=== PATIENT | female | born 1935 | race Caucasian/White ===

== ENCOUNTER → 2016-11-01 | Day surgery (SDC) | payer MEDICARE, BC ==
[~2016-11-01] MED LIST: ALPRAZolam 0.25 MG TAB ONE; BACITRACIN OINT 1 EACH PACKET TOPICAL ONE; LIDOCAINE 1% INJ 10MG/ML (20 ML MDV) ONE; LIDOCAINE 1%-EPI 1:100,000 20 ML VIAL ONE; SODIUM BICARB 4% 5 ML VIAL (0.48 MEQ/ML) ONE
--- NOTE | 2016-11-01 13:32 | USB ---
EXAMINATION TYPE: US biopsy breast VAD LT, MG postbiopsy diagnostic mammo LT wo CAD DATE OF EXAM: 11/01/2016 1:09 PM CLINICAL HISTORY: 81-year-old female left N63 Breast Mass. Referred for biopsy from [facility]. TECHNIQUE: Ultrasound guided core biopsy of the 4:00 left breast. COMPARISON: Correlation outside mammogram 10/01/2016 FINDINGS: The procedure of ultrasound guided core biopsy was explained to the patient. Benefits, alternatives, and risks were discussed. An informed consent was then obtained. The suspicious irregular and vascular 4:00 left breast lesion was identified. The left axilla was also scanned and shows no abnormal lymphadenopathy. The patient was placed in supine positioning for imaging and for the procedure. The overlying skin was prepped and draped in usual sterile fashion. Lidocaine buffered with bicarbonate was used as anesthetic into the skin followed by lidocaine and epinephrine into the subcutaneous tissue up to area of concern in the 4:00 left breast. Under ultrasound guidance, a 13-gauge vacuum-assisted Mammotome Elite biopsy gun device was used to obtain 7 core samples. Following this, a ribbon clip was left in lesion. The patient tolerated the procedure well without any immediate complication. The patient was kept in the radiology department for short stay after the procedure and then discharged home in stable condition. IMPRESSION: Successful, uncomplicated ultrasound guided core biopsy of suspicious lesion in the 4:00 left breast; full pathology results to follow. Pathology Results: Malignant BREAST, LEFT, ULTRASOUND GUIDED BIOPSY: INVASIVE DUCTAL CARCINOMA. Recommendation Surgical consult of the left breast. CARROL
== END ==
LOC: RADUSWWP 10:56
PROVIDERS: ATTEND Surgery
DX: C50.912 Malignant neoplasm of unspecified site of left female breast (principal)
CPT/HCPCS: 88305; 19083; G0206; A4648; J2001

== ENCOUNTER 2016-11-22 06:53 | Day surgery (SDC) | payer MEDICARE, BC ==
[2016-11-18 11:35] VITALS: BMI 26.2
[~2016-11-22 06:53] MED LIST changes: -ALPRAZolam 0.25 MG TAB ONE; -BACITRACIN OINT 1 EACH PACKET TOPICAL ONE; +DEXAMETHASONE SOD PHOSPHATE 10 MG/ML 1 ML VIAL IV ONE; +HEPARIN SODIUM,PORCINE 5,000 UNIT/ML 1 ML VIAL SQ ONE; +HYDROmorphone 1 MG/ML 1 ML SYRINGE IVP PRN; -LIDOCAINE 1% INJ 10MG/ML (20 ML MDV) ONE; -LIDOCAINE 1%-EPI 1:100,000 20 ML VIAL ONE; +MIDAZOLAM 2 MG/2 ML VIAL IV PRN; +ONDANSETRON 4 MG/2 ML VIAL IVP ONE; +Pre Op ABX Message 1 EACH MISC MISCELLANE ONE; -SODIUM BICARB 4% 5 ML VIAL (0.48 MEQ/ML) ONE
[2016-11-22] MEDS ORDERED: ALPRAZolam 0.25 MG TAB PO ONE (07:43)
--- NOTE | 2016-11-22 07:51 | P.GSHP ---
History of Present Illness H&P Date: 11/22/16 Chief Complaint: Left breast cancer This is a 81-year-old female who presents today for left breast simple mastectomy with sentinel node biopsy. Patient was recently diagnosed with left breast cancer. Patient has elected to undergo mastectomy with sentinel node biopsy. She was given different treatment options including breast conservation. - Constitutional Constitutional: Reports as per HPI Past Medical History Past Medical History: Cancer, Eye Disorder, Hyperlipidemia, Hypertension, Osteoarthritis (OA) Additional Past Medical History / Comment(s): Macular degeneration, heart murmer , hx past kidney problems due to motrin use, breast cancer History of Any Multi-Drug Resistant Organisms: None Reported Past Surgical History: Breast Surgery, Joint Replacement Additional Past Surgical History / Comment(s): rt hip replacement, breast biopsy , kirit cataracts Past Anesthesia/Blood Transfusion Reactions: No Reported Reaction Past Psychological History: No Psychological Hx Reported Smoking Status: Former smoker Past Alcohol Use History: Occasional Additional Past Alcohol Use History / Comment(s): quit smoking 10 yrs ago, smoked for about 30 yrs, <1PPD Past Drug Use History: None Reported - Past Family History Mother Family Medical History: Cancer Father Family Medical History: CVA/TIA, Myocardial Infarction ([place]) Medications and Allergies Home Medications Medication Instructions Recorded Confirmed Type Furosemide [Lasix] 20 mg PO MOWEFR 11/15/13 11/22/16 History Gabapentin [Neurontin] 300 mg PO HS 11/15/13 11/22/16 History Loratadine [Claritin] 10 mg PO BID 11/15/13 11/22/16 History Vit A,C & E/Lutein/Minerals 1 tab PO BID 11/15/13 11/22/16 History [Ocuvite with Lutein Tablet] Atorvastatin [Lipitor] 40 mg PO MOTH 11/18/16 11/22/16 History Allergies Allergy/AdvReac Type Severity Reaction Status Date / Time No Known Allergies Allergy Verified 11/22/16 07:36 Surgical - Exam Vital Signs Temp Pulse Resp BP Pulse Ox 97.5 F L 65 16 129/81 97 11/22/16 07:42 11/22/16 07:42 11/22/16 07:42 11/22/16 07:42 11/22/16 07:42 - General well developed, no distress - Eyes PERRL - ENT normal pinna - Neck no masses - Respiratory normal expansion - Cardiovascular Rhythm: regular - Abdomen Abdomen: soft, non tender - Integumentary no rash Breast exam is within normal limits. There is a healing core biopsy incision in the left breast. There is no cervical or axillary lymphadenopathy. Assessment and Plan Plan: Left breast cancer. We'll perform left breast simple mastectomy and axillary sentinel node biopsy
[2016-11-22] MEDS ORDERED: LIDOCAINE 1% 20 ML VIAL (10MG/ML) FOR IV START INTRADERMA ONE (07:58)
[2016-11-22] MEDS: LACTATED RINGERS 1,000 ML IV SCH (08:00)
[2016-11-22 08:13] LABS: Basophils % (A) 1 %; CH 33.2; CHCM 33.2; Eosinophils # (A) 0.2 k/uL (0-0.7); Eosinophils % (A) 3 %; HCT 38.9 % (34.0-46.0); HGB 12.9 gm/dL (11.4-16.0); Luc # (Auto) 0.13; Luc % (Auto) 2; Lymphocytes # (A) 0.7 k/uL (1.0-4.8); Lymphocytes % (A) 14 %; MCH 33.3 pg (25.0-35.0); MCHC 33.1 g/dL (31.0-37.0); MCV 100.5 fL (80.0-100.0); Mean Platelet Volume 6.4; Monocytes # (A) 0.4 k/uL (0-1.0); Monocytes % (A) 7 %; Neutrophils # (A) 3.9 k/uL (1.3-7.7); Neutrophils % (A) 74 %; RBC 3.87 m/uL (3.80-5.40); WBC 5.3 k/uL (3.8-10.6); WBC (Perox) 5.26
[2016-11-22 08:27] LABS: Anion Gap 13 mmol/L; Blood Urea Nitrogen 13 mg/dL (7-17); Carbon Dioxide 26 mmol/L (22-30); Chloride 97 mmol/L (98-107); Glucose 95 mg/dL (74-99); Non-African American GFR(MDRD) 52 (>60 ml/min/1.73 sqM); Potassium 4.5 mmol/L (3.5-5.1); Sodium 136 mmol/L (137-145)
--- NOTE | 2016-11-22 10:01 | NM ---
EXAMINATION TYPE: NM sentinel node injection DATE OF EXAM: 11/22/2016 8:52 AM COMPARISON: NONE HISTORY: Left breast cancer TECHNIQUE AND FINDINGS: The procedure of sentinel lymph node injection was explained to the patient. The benefits, alternatives, and risks were discussed. An informed consent was then obtained. Overlying skin is cleaned with sterile alcohol. Lidocaine buffered with bicarbonate was used as anes thetic into the skin and subcutaneous tissue surrounding the nipple. Following this, 550 uCi Tc 99m Filtered Sulfur Colloid was injected into 4 equivalent doses at 12, 3, 6, and 9:00 position surroundi ng the left nipple intradermally. The injection sites were massaged by nuclear radiologist for 10 minutes after injection. T he patient tolerated the procedure well without any immediate complication. The patient was kept in the radiology department for short stay after the procedure and then taken to surgery for surgical pr ocedure what is presumed intraoperative gamma probe will be used for sentinel lymph node detection. IMPRESSION: Left breast radiotracer injection for sentinel node localization as above.
[2016-11-22] MEDS ORDERED: METHYLENE BLUE 50 MG/10 ML AMPUL MISCELLANE ONE (10:33)
[2016-11-22] MEDS ORDERED: fentaNYL (PF) 50 MCG/ML 2 ML AMP ONE (10:58)
[2016-11-22] MEDS ORDERED: HYDROmorphone (PF) 1 MG/ML ONE (10:58)
[2016-11-22] MEDS ORDERED: MIDAZOLAM 2 MG/2 ML VIAL ONE (10:58)
[2016-11-22] MEDS ORDERED: PROPOFOL 10 MG/ML 20 ML VIAL IV ONE (10:58)
[2016-11-22] MEDS ORDERED: SUCCINYLCHOLINE CHLORIDE 100 MG/5 ML SYR IV ONE (10:58)
[2016-11-22] MEDS ORDERED: SODIUM CHLORIDE 0.9% 100 ML with ceFAZolin 2,000 MG IV ONE ×2 (10:58)
[2016-11-22] MEDS ORDERED: METHYLENE BLUE 50 MG/10 ML AMPUL INJ ONE (11:38)
[2016-11-22] MEDS ORDERED: LACTATED RINGERS 1,000 ML IV ONE ×2 (12:24→12:36)
[2016-11-22] MEDS ORDERED: HYDROcodone/APAP 5-325MG 1 EACH TAB PO PRN (12:36)
[2016-11-22] MEDS ORDERED: NALOXONE 0.4 MG/ML 1 ML VIAL IV PRN (12:36)
[2016-11-22] MEDS ORDERED: ONDANSETRON 4 MG/2 ML VIAL IVP PRN (12:36)
[2016-11-22] MEDS ORDERED: Acetaminophen-Codeine 300-30mg TAB PO PRN (12:36)
--- NOTE | 2016-11-22 12:36 | P.OP ---
Date of Procedure: 11/22/16 Preoperative Diagnosis: Left breast cancer Postoperative Diagnosis: Left breast cancer Deferred pathology Procedure(s) Performed: Left simple mastectomy After axillary [place] node biopsy Anesthesia: JELLY Surgeon: John Mckoy Estimated Blood Loss (ml): 25 Pathology: other (Left breast, sentinel node, axillary node) Condition: stable Disposition: PACU Description of Procedure: Jnaae placed on the operating table in the supine position. She received general anesthesia. Her left chest was prepped and draped usual fashion. The patient had previously received radiotracer in the nuclear medicine department. An amp of methylene blue was injected in 4 quadrants of the breast. The breast was massaged for 5 minutes. The mastectomy skin flap incision sites were marked with a marker and then the superior mastectomy flap was incised and then using Harmonic scissors which cautery the mastectomy flap was created to the level of the clavicle this point the exam was undertaken the clavipectoral fascia was entered. Using the neoprobe a sentinel node was found. This was dissected and sent to pathology. The inferior the second flap was then created and then the dissection was taken down to the level if Valerie crease. The breast was then removed from the chest wall using Harmonic scissors. The specimen was inspected there is no other sentinel nodes within the breast. Another enlarged axillary lymph node was visualized this was removed and sent as a permanent section. There was no other gamma activity in the axilla at this point a ZHEN drains placed in the sella and one was placed in the mastectomy site. The drains were secured to the skin. The skin was closed in 2 layers using 2-0 Vicryl and 3-0 Monocryl suture. Dermabond dressing was applied. Patient was sent to recovery in stable condition. The sentinel node was reported as negative.
[2016-11-22] MEDS ORDERED: HYDROmorphone 1 MG/ML 1 ML SYRINGE IVP ONE ×2 (13:15→13:41)
[2016-11-22] MEDS: HYDROmorphone 1 MG/ML 1 ML SYRINGE IVP PRN ×2 (14:33→19:11)
[2016-11-22] MEDS ORDERED: ACETAMINOPHEN IV (For NPO) 1,000 MG in EMPTY BAG 1 BAG IVPB ONE (15:00)
[2016-11-22] MEDS ORDERED: ATORVASTATIN 40 MG TAB PO SCH (21:00)
[2016-11-22] MEDS: DOCUSATE 100 MG CAP PO SCH (21:23)
[2016-11-22] MEDS: GABAPENTIN 300 MG CAP PO SCH (21:25)
[2016-11-22] MEDS: HYDROcodone/APAP 5-325MG 1 EACH TAB PO PRN (22:06)
[2016-11-23] MEDS: HYDROcodone/APAP 5-325MG 1 EACH TAB PO PRN ×2 (05:05→16:07)
[2016-11-23] MEDS ORDERED: amLODIPine 5 MG TAB PO SCH (09:00)
[2016-11-23] MEDS: DOCUSATE 100 MG CAP PO SCH ×2 (09:25→21:51)
[2016-11-23] MEDS: amLODIPine 2.5 MG TAB PO SCH (09:25)
[2016-11-23] MEDS: ENOXAPARIN 30 MG/0.3 ML SYRINGE SQ SCH (09:26)
[2016-11-23] MEDS: HYDROmorphone 1 MG/ML 1 ML SYRINGE IVP PRN (10:16)
[2016-11-23] MEDS: LACTATED RINGERS 1,000 ML IV SCH (10:21)
--- NOTE | 2016-11-23 11:15 | P.PN ---
Subjective Principal diagnosis: Left breast cancer Patient is an 81-year-old white female with medical history significant for left breast cancer postop day #1 for left breast simple mastectomy with sentinel node biopsy. Patient is doing well. Denies chills, fevers, nausea, vomiting, shortness of breath, chest pain, or abdominal pain. Incisional pain controlled with current pain regimen. Patient is urinating without difficulty. Patient is passing flatus without bowel movement. Patient is tolerating diet. Patient has been up ambulating with assist. Afebrile. No evidence of leukocytosis. Hemoglobin stable at 12.9. Pj-López drains with minimal serosanguineous drainage. Objective - Vital Signs Vital signs: Vital Signs Temp 97.7 F 11/23/16 08:15 Pulse 77 11/23/16 08:15 Resp 16 11/23/16 08:15 BP 135/82 11/23/16 08:15 Pulse Ox 96 11/23/16 08:15 Intake & Output 11/22/16 11/23/16 11/23/16 18:59 06:59 18:59 Intake Total 1160 520 Output Total 300 475 23 Balance 860 45 -23 Intake: IV 1100 Oral 60 520 Output: Drainage 75 23 DRAIN B 25 3 drain A 50 20 Urine 250 400 Estimated Blood Loss 50 Other: Voiding Method Toilet # Voids 1 - Exam GENERAL: Pt awake and alert, well-appearing, well-nourished, and in no acute distress. HEART: Heart S1, S2, no S3 or S4. No murmurs, rubs or gallops. ABDOMEN: Soft, nontender, nondistended, normoactive bowel sounds. NEUROLOGICAL: Pt oriented x 3. PSYCH: Normal mood, normal affect. SKIN: Warm, dry. Left breast incision dry, intact, no erythema or drainage. ZHEN drains to left axilla patent, compressed. - Labs CBC & Chem 7: 11/22/16 07:50 11/22/16 07:50 Assessment and Plan Plan: Impression: Left breast cancer status post left simple mastectomy with left axilla node and sentinel node biopsy. Plan: Continue to monitor patient. Continue supportive treatment and pain management. Continue local wound care and drain management. Increase ambulation. Continue medical management. The above impression and plan have been discussed and directed by Dr. Mckoy. Asa ALATORRE acting as scribe for Dr. Mckoy.
[2016-11-23] MEDS: LORATADINE 10 MG TAB PO SCH (13:29)
[2016-11-23] MEDS ORDERED: LACTULOSE 20 GM/30 ML CUP PO ONE (18:00)
--- NOTE | 2016-11-23 18:08 | P.HPIM ---
History of Present Illness H&P Date: 11/23/16 Patient is an 81-year-old female who was admitted to [facility] due to recent diagnosis of left breast cancer she underwent simple left breast mastectomy with sentinel node biopsy. By Dr. Mckoy, consultation was requested for management while hospitalized On review of systems Patient is complaining of pain at the surgical site, she is complaining of constipation She is complaining of dizziness when she walks otherwise no complaints Past Medical History Past Medical History: Cancer, Eye Disorder, Hyperlipidemia, Hypertension, Osteoarthritis (OA) Additional Past Medical History / Comment(s): Macular degeneration, heart murmer , hx past kidney problems due to motrin use, breast cancer History of Any Multi-Drug Resistant Organisms: None Reported Past Surgical History: Breast Surgery, Joint Replacement Additional Past Surgical History / Comment(s): rt hip replacement, breast biopsy , kirit cataracts Past Anesthesia/Blood Transfusion Reactions: No Reported Reaction Past Psychological History: No Psychological Hx Reported Smoking Status: Former smoker Past Alcohol Use History: Occasional Additional Past Alcohol Use History / Comment(s): quit smoking 10 yrs ago, smoked for about 30 yrs, <1PPD Past Drug Use History: None Reported - Past Family History Mother Family Medical History: Cancer Father Family Medical History: CVA/TIA, Myocardial Infarction ([place]) Medications and Allergies Home Medications Medication Instructions Recorded Confirmed Type Furosemide [Lasix] 20 mg PO MOWEFR 11/15/13 11/22/16 History Gabapentin [Neurontin] 300 mg PO HS 11/15/13 11/22/16 History Loratadine [Claritin] 10 mg PO BID 11/15/13 11/22/16 History Vit A,C & E/Lutein/Minerals 1 tab PO BID 11/15/13 11/22/16 History [Ocuvite with Lutein Tablet] Atorvastatin [Lipitor] 40 mg PO MOTH 11/18/16 11/22/16 History amLODIPine [Norvasc] 2.5 mg PO DAILY 11/22/16 11/22/16 History Allergies Allergy/AdvReac Type Severity Reaction Status Date / Time No Known Allergies Allergy Verified 11/22/16 07:36 Physical Exam Vitals: Vital Signs Temp Pulse Pulse Pulse Resp BP Pulse Ox 11/23/16 08:15 97.7 F 77 16 135/82 96 11/23/16 04:45 70 18 11/23/16 00:00 97.5 F L 70 16 119/63 97 11/22/16 21:00 97.2 F L 72 18 117/72 94 L 11/22/16 18:20 79 18 96 Intake and Output 11/23/16 11/23/16 11/23/16 06:59 14:59 22:59 Output Total 430 43 Balance -430 -43 Output: Drainage 30 43 DRAIN B 10 3 drain A 20 40 Urine 400 Other: # Voids 1 1 Weight 69.4 kg Patient Weight 11/24/16 06:59 Weight 69.4 kg In general patient is alert and oriented 3 in no apparent distress HEENT head normocephalic and atraumatic Neck is supple no JVD no goiter no lymphadenopathy Chest exam reveals a few scattered rhonchi no wheezing Cardiac exam reveals regular heart sounds S1 and S2 was 2/6 systolic murmur in the left sternal border Abdomen is soft nontender no organomegaly Extremity exam reveals no edema no cyanosis or clubbing Results CBC & Chem 7: 11/22/16 07:50 11/22/16 07:50 Thrombosis Risk Factor Assmnt - Choose All That Apply Each Factor Represents 1 point: Obesity (BMI >25) Each Risk Factor Represents 2 Points: Malignancy Each Risk Factor Represents 3 Points: Age 75 years or older Thrombosis Risk Factor Assessment Total Risk Factor Score: 6 Thrombosis Risk Factor Assessment Level: High Risk Assessment and Plan Plan: #1 left breast cancer status post left simple mastectomy with sentinel node biopsy #2 underlying history of hyperlipidemia #3 underlying history of hypertension #4 postoperative constipation At this time will give a dose of lactulose will resume home medications will follow during this hospitalization for medical management will recheck labs CBC and CMP tomorrow in a.m.
[2016-11-23] MEDS: GABAPENTIN 300 MG CAP PO SCH (21:36)
[2016-11-24] MEDS: HYDROmorphone 1 MG/ML 1 ML SYRINGE IVP PRN (00:18)
[2016-11-24 06:48] LABS: Basophils # (A) 0.1 k/uL (0-0.2); Basophils % (A) 1 %; CHCM 31.9; Eosinophils # (A) 0.2 k/uL (0-0.7); Eosinophils % (A) 3 %; HCT 33.7 % (34.0-46.0); HDW 2.15; HGB 10.6 gm/dL (11.4-16.0); Luc % (Auto) 2; Lymphocytes # (A) 0.9 k/uL (1.0-4.8); Lymphocytes % (A) 15 %; MCH 32.7 pg (25.0-35.0); MCHC 31.5 g/dL (31.0-37.0); MCV 103.9 fL (80.0-100.0); Macrocytosis Slight; Mean Platelet Volume 6.6; Monocytes # (A) 0.3 k/uL (0-1.0); Monocytes % (A) 5 %; Neutrophils # (A) 4.7 k/uL (1.3-7.7); Neutrophils % (A) 74 %; RBC 3.25 m/uL (3.80-5.40); RDW 12.9 % (11.5-15.5); WBC 6.3 k/uL (3.8-10.6); WBC (Perox) 6.68
[2016-11-24] MEDS ORDERED: FUROSEMIDE 20 MG TAB PO ONE (07:00)
[2016-11-24 07:09] LABS: ALT 24 U/L (9-52); AST 32 U/L (14-36); Alkaline Phosphatase 76 U/L (38-126); Anion Gap 7 mmol/L; Blood Urea Nitrogen 18 mg/dL (7-17); Calcium 9.2 mg/dL (8.4-10.2); Carbon Dioxide 27 mmol/L (22-30); Chloride 102 mmol/L (98-107); Glucose 88 mg/dL (74-99); Non-African American GFR(MDRD) 53 (>60 ml/min/1.73 sqM); Potassium 4.2 mmol/L (3.5-5.1); Sodium 136 mmol/L (137-145); Total Bilirubin 0.7 mg/dL (0.2-1.3); Total Protein 6.7 g/dL (6.3-8.2)
[2016-11-24] MEDS: amLODIPine 2.5 MG TAB PO SCH (08:33)
[2016-11-24] MEDS: LORATADINE 10 MG TAB PO SCH (08:33)
[2016-11-24] MEDS: DOCUSATE 100 MG CAP PO SCH (08:33)
[2016-11-24] MEDS: ENOXAPARIN 30 MG/0.3 ML SYRINGE SQ SCH (08:33)
[2016-11-24] MEDS: HYDROcodone/APAP 5-325MG 1 EACH TAB PO PRN (08:38)
[2016-11-24 10:18] VITALS: BP 128/74; PULSE 81; RESP 16; TEMP 98.3
== END 2016-11-24 11:32 | disposition home health service (06) ==
LOC: OR 06:53 → 6PED 12:40 → OR 11-24 11:32
PROVIDERS: ATTEND Surgery
DX: D05.12 Intraductal carcinoma in situ of left breast (principal); E78.5 Hyperlipidemia, unspecified; I10 Essential (primary) hypertension; M19.90 Unspecified osteoarthritis, unspecified site; Z87.891 Personal history of nicotine dependence; H35.30 Unspecified macular degeneration; Z79.899 Other long term (current) drug therapy
CPT/HCPCS: 19303; 38530; 93005; 97161; 80053; 80048; 85025 ×2; 88342; 88331; 88307; 88341; 38792; A9541; J2250; J1644; J1100; J2405; J2001; J3010; J1650 ×2; J1170 ×3; J0690; J0131; J0330; J2704; Q9968

== ENCOUNTER → 2018-04-12 | Outpatient (CLI) | payer MEDICARE, BC ==
--- NOTE | 2018-04-13 09:41 | USB ---
Reason for exam: clinical finding. History: Patient has history of breast cancer at age 81. Mastectomy of the left breast, November 22, 2016. Malignant US biopsy breast VAD LT of the left breast, November 01, 2016. Indicated problem(s): palpable abnormality and lump or thickening in the right breast. Physical Findings: Nurse Summary: 0.5cm nodule at 6 o'clock (nurse dw). US Breast RT Right complete breast ultrasound includes all four quadrants, the retroareolar region and axilla. Finding demonstrates no cystic or solid lesion seen. These results were verbally communicated with the patient and result sheet given to the patient on 04/12/18. ASSESSMENT: Negative, BI-RAD 1 RECOMMENDATION: Follow-up diagnostic mammogram of the right breast in 6 months.
== END | disposition home or self-care (01) ==
LOC: RADUSWWP 15:07
PROVIDERS: ATTEND Family Medicine
DX: R92.8 Other abnormal and inconclusive findings on diagnostic imaging of breast (principal); N63.0 Unspecified lump in unspecified breast; Z85.3 Personal history of malignant neoplasm of breast

== ENCOUNTER 2018-07-09 19:44 | Inpatient (IN) | payer MEDICARE, BC ==
[2018-07-09] MEDS ORDERED: MORPHINE SULFATE 4 MG/ML SYRINGE IVP STA (20:35)
--- NOTE | 2018-07-09 21:13 | XR ---
EXAMINATION TYPE: XR Hip Complete LT DATE OF EXAM: 07/09/2018 COMPARISON: NONE HISTORY: Pain TECHNIQUE: 2 views FINDINGS: There is acute impacted subcapital fracture left femur. There is no dislocation. Acetabulum is intact. IMPRESSION: Acute impacted subcapital fracture left femur.
--- NOTE | 2018-07-09 21:14 | XR ---
EXAMINATION TYPE: XR chest 1V DATE OF EXAM: 07/09/2018 COMPARISON: 01/21/2014 HISTORY: Chest pain TECHNIQUE: Single frontal view of the chest is obtained. FINDINGS: There is small linear density in the left lower lung field. There is no heart failure. Hea rt size is normal. There is arthritic change in the shoulder joints. There is no pleural effusion. IMPRESSION: Subsegmental atelectasis in the left lower lung field. No heart failure. There is overal l improved aeration of the lungs compared to last exam.
--- NOTE | 2018-07-09 21:26 | ED ---
General Adult HPI - General Source: EMS, RN notes reviewed Mode of arrival: EMS Limitations: no limitations <Sven Nolasco - Last Filed: 07/10/18 04:43> <Mio White - Last Filed: 07/10/18 09:49> - General Chief complaint: Extremity Injury, Lower Stated complaint: Hip Pain Time Seen by Provider: 07/09/18 20:35 - History of Present Illness Initial comments: 83-year-old female with a past medical history of breast cancer, hyperlipidemia , hypertension, heart murmur, osteoarthritis presents to the emergency department for a chief complaint of left hip pain. Patient states that prior to arrival. She went to sit down on a chair and felt pain in her left groin. She states it is painful to move the left hip. She is unable to bear weight on the left hip. Patient previously had a right hip replacement by Dr. Becerra 4 years ago, no fracture at that time. Patient states she is currently taking anastrozole for breast cancer which she is aware causes increased risk for fracture. Patient has no other complaints at this time including shortness of breath, chest pain, abdominal pain, nausea or vomiting, headache, or visual changes. (Sven Nolasco) - Related Data Home Medications Medication Instructions Recorded Confirmed Furosemide [Lasix] 20 mg PO MOWEFR 11/15/13 07/09/18 Loratadine [Claritin] 10 mg PO BID 11/15/13 07/09/18 Vit A,C & E/Lutein/Minerals 1 tab PO BID 11/15/13 07/09/18 [Ocuvite with Lutein Tablet] Atorvastatin [Lipitor] 40 mg PO MOTH 11/18/16 07/09/18 amLODIPine [Norvasc] 2.5 mg PO DAILY 11/22/16 07/09/18 Acetaminophen [Tylenol Extra 1,000 mg PO Q6H PRN 07/09/18 07/09/18 Strength] Anastrozole [Arimidex] 1 mg PO DAILY 07/09/18 07/09/18 Hydrocodone/Acetaminophen [[place] 1 tab PO ONCE PRN 07/09/18 07/09/18 5-325] Naproxen Sodium [Aleve] 220 mg PO Q12HR PRN 07/09/18 07/09/18 Allergies Allergy/AdvReac Type Severity Reaction Status Date / Time No Known Allergies Allergy Verified 07/09/18 20:14 Review of Systems ROS Other: All systems not noted in ROS Statement are negative. <Sven Nolasco - Last Filed: 07/10/18 04:43> ROS Other: All systems not noted in ROS Statement are negative. <ChristopherMio - Last Filed: 07/10/18 09:49> ROS Statement: Those systems with pertinent positive or pertinent negative responses have been documented in the HPI. Past Medical History Past Medical History: Cancer, Eye Disorder, Hyperlipidemia, Hypertension, Osteoarthritis (OA) Additional Past Medical History / Comment(s): Macular degeneration, heart murmer , hx past kidney problems due to motrin use, breast cancer History of Any Multi-Drug Resistant Organisms: None Reported Past Surgical History: Breast Surgery, Joint Replacement Additional Past Surgical History / Comment(s): rt hip replacement, breast biopsy , kirit cataracts Past Anesthesia/Blood Transfusion Reactions: No Reported Reaction Past Psychological History: No Psychological Hx Reported Smoking Status: Former smoker Past Alcohol Use History: Occasional Past Drug Use History: None Reported - Past Family History Mother Family Medical History: Cancer Father Family Medical History: CVA/TIA, Myocardial Infarction ([place]) <Sven Nolasco - Last Filed: 07/10/18 04:43> General Exam Limitations: no limitations General appearance: alert, in no apparent distress Head exam: Present: atraumatic, normocephalic, normal inspection Eye exam: Present: normal appearance, PERRL, EOMI. Absent: scleral icterus, conjunctival injection, periorbital swelling ENT exam: Present: normal exam, mucous membranes moist Neck exam: Present: normal inspection, full ROM. Absent: tenderness, meningismus, lymphadenopathy Respiratory exam: Present: normal lung sounds bilaterally. Absent: respiratory distress, wheezes, rales, rhonchi, stridor Cardiovascular Exam: Present: regular rate, normal rhythm, normal heart sounds. Absent: systolic murmur, diastolic murmur, rubs, gallop, clicks Extremities exam: Present: normal capillary refill (Capillary refill less than 2 seconds and DP pulse 2+ in the left lower extremity. Sensation intact in the left lower extremity), other (Minimal external rotation of the left lower extremity. No step-off palpated). Absent: full ROM (Patient unable to move the left hip due to pain.), tenderness (No significant tenderness noted to the left hip), joint swelling Neurological exam: Present: alert, oriented X3, CN II-XII intact Psychiatric exam: Present: normal affect, normal mood <Sven Nolasco - Last Filed: 07/10/18 04:43> Vital Signs 07/09/18 07/09/18 07/09/18 19:52 20:40 21:40 Temperature 97.8 F Pulse Rate 108 H 96 97 Respiratory 20 14 24 Rate Blood Pressure 161/138 111/75 141/79 O2 Sat by Pulse 98 96 98 Oximetry 07/09/18 07/09/18 07/09/18 22:20 23:00 23:30 Temperature Pulse Rate 102 H 102 H 101 H Respiratory 13 21 20 Rate Blood Pressure 142/85 139/77 113/82 O2 Sat by Pulse 95 95 96 Oximetry 07/10/18 07/10/18 07/10/18 00:00 00:30 01:00 Temperature Pulse Rate 101 H 98 99 Respiratory 16 14 17 Rate Blood Pressure 150/82 151/92 143/73 O2 Sat by Pulse 95 96 96 Oximetry 07/10/18 07/10/18 07/10/18 01:30 02:00 02:30 Temperature 98 F Pulse Rate 92 96 92 Respiratory 13 12 18 Rate Blood Pressure 113/76 117/61 126/73 O2 Sat by Pulse 98 97 98 Oximetry EKG Findings - EKG Comments: EKG Findings:: EKG shows a tennis tachycardia, ventricular rate 105, CO interval 184, QTC 483, no evidence of ST elevation or depression <Sven Nolasco - Last Filed: 07/10/18 04:43> Medical Decision Making - Lab Data Result diagrams: 07/09/18 20:03 07/09/18 20:03 <Sven Nolasco - Last Filed: 07/10/18 04:43> - Lab Data Result diagrams: 07/10/18 08:55 07/09/18 20:03 <Mio White - Last Filed: 07/10/18 09:49> - Medical Decision Making 83-year-old female presents to the emergency department for a chief complaint of left hip pain. Patient currently taking anastrozole for breast cancer. Patient states she is has been having left ear pain for the past few weeks. She states she sat down in a chair today and felt a sharp pain in her left hip. She was unable to move or bear weight. Patient presented to the emergency department by EMS. On exam neurovascular intact in the left lower extremity. Minimal external rotation noted. X-ray of the left hip shows acute impacted subcapital fracture of the left femur. Patient also complaining of right knee pain which shows changes in the lateral femoral condyle probably related to chronic avascular necrosis but osteoblastic metastatic disease is not excluded. CBC and CMP are unremarkable. Creatinine somewhat elevated at 1.41, patient given fluids. Urine does not show any evidence of infection. EKG was ordered as well as chest x-ray for orthopedics. Patient previously had right hip replaced by Dr. Becerra. Family members strongly prefer that Dr. Becerra be on the case. However he is not on-call. We did attempt to page him multiple times but were unsuccessful. Paged Reginald CAN who spoke with Dr. Espinoza, we will except the patient with plan to do surgery tomorrow morning at 11 :[address] Becerra prefers to do the case. (Sven Nolasco) I saw this patient in conjunction with the physician logistics assistant. I performed independent history and physical exam. Agree with case management. (Mio White) - Lab Data Lab Results 07/09/18 07/09/18 07/09/18 Range/Units 20:03 20:03 20:03 WBC 10.7 H (3.8-10.6) k/uL RBC 3.48 L (3.80-5.40) m/uL Hgb 11.6 (11.4-16.0) gm/dL Hct 35.0 (34.0-46.0) % MCV 100.4 H (80.0-100.0) fL MCH 33.2 (25.0-35.0) pg MCHC 33.1 (31.0-37.0) g/dL RDW 12.8 (11.5-15.5) % Plt Count 268 (150-450) k/uL Neutrophils % 84 % Lymphocytes % 7 % Monocytes % 5 % Eosinophils % 2 % Basophils % 0 % Neutrophils # 9.0 H (1.3-7.7) k/uL Lymphocytes # 0.8 L (1.0-4.8) k/uL Monocytes # 0.6 (0-1.0) k/uL Eosinophils # 0.2 (0-0.7) k/uL Basophils # 0.0 (0-0.2) k/uL PT 10.6 (9.0-12.0) sec INR 1.0 (<1.2) Sodium 138 (137-145) mmol/L Potassium 4.2 (3.5-5.1) mmol/L Chloride 103 (98-107) mmol/L Carbon Dioxide 21 L (22-30) mmol/L Anion Gap 14 mmol/L BUN 32 H (7-17) mg/dL Creatinine 1.41 H (0.52-1.04) mg/dL Est GFR (CKD-EPI)AfAm 40 (>60 ml/min/1.73 sqM) Est GFR (CKD-EPI)NonAf 35 (>60 ml/min/1.73 sqM) Glucose 107 H (74-99) mg/dL Calcium 9.3 (8.4-10.2) mg/dL Total Bilirubin 0.6 (0.2-1.3) mg/dL AST 33 (14-36) U/L ALT 23 (9-52) U/L Alkaline Phosphatase 130 H (38-126) U/L Total Protein 8.0 (6.3-8.2) g/dL Albumin 4.5 (3.5-5.0) g/dL Disposition Is patient prescribed a controlled substance at d/c from ED?: No Time of Disposition: 02:08 <Sven Nolasco - Last Filed: 07/10/18 04:43> <Mio White - Last Filed: 07/10/18 09:49> Clinical Impression: Fracture of hip, left, closed Disposition: ADMITTED IP TO THIS HOSP Condition: Good
--- NOTE | 2018-07-09 21:30 | XR ---
EXAMINATION TYPE: XR knee complete RT DATE OF EXAM: 07/09/2018 COMPARISON: NONE HISTORY: Knee pain TECHNIQUE: 3 views FINDINGS: There is patchy osteosclerosis involving the lateral femoral condyle. There is spurring of the lateral femoral and tibial condyles. I see no fracture nor dislocation. There is probably small k nee joint effusion. There is spurring on the patella. IMPRESSION: Osteoarthritis in the lateral joint space. Changes in the lateral femoral condyle probabl y relate to chronic avascular necrosis. Osteoblastic metastatic disease is not excluded. No acute fra cture seen.
[2018-07-09] MEDS ORDERED: HYDROmorphone 0.5 MG/0.5 ML SYRINGE IVP STA (21:51)
[2018-07-09 21:57] LABS: Basophils % (A) 0 %; Eosinophils # (A) 0.2 k/uL (0-0.7); Eosinophils % (A) 2 %; HGB 11.6 gm/dL (11.4-16.0); Lymphocytes # (A) 0.8 k/uL (1.0-4.8); Lymphocytes % (A) 7 %; MCH 33.2 pg (25.0-35.0); MCHC 33.1 g/dL (31.0-37.0); MCV 100.4 fL (80.0-100.0); Monocytes # (A) 0.6 k/uL (0-1.0); Monocytes % (A) 5 %; Neutrophils % (A) 84 %; Platelet Count 268 k/uL (150-450); RBC 3.48 m/uL (3.80-5.40); RDW 12.8 % (11.5-15.5); WBC 10.7 k/uL (3.8-10.6)
[2018-07-09 22:05] LABS: Albumin 4.5 g/dL (3.5-5.0); Calcium 9.3 mg/dL (8.4-10.2); Potassium 4.2 mmol/L (3.5-5.1); Total Bilirubin 0.6 mg/dL (0.2-1.3)
[2018-07-09] MEDS ORDERED: SODIUM CHLORIDE 0.9% 500 ML 500 ML IV STA (23:00)
[2018-07-10] MEDS ORDERED: NALOXONE 0.4 MG/ML 1 ML VIAL IV PRN ×2 (02:09→14:12)
[2018-07-10] MEDS ORDERED: MORPHINE SULFATE 4 MG/ML SYRINGE IVP PRN (02:12)
[2018-07-10] MEDS: HYDROmorphone 0.5 MG/0.5 ML SYRINGE IVP PRN ×4 (02:32→22:45)
[2018-07-10 02:41] LABS: Prothrombin Time 10.6 sec (9.0-12.0)
[2018-07-10 02:51] LABS: Appearance,Urine Clear (Clear); Bilirubin,Urine Negative (Negative); Blood,Urine Negative (Negative); Color,Urine Yellow; Glucose,Urine (UA) Negative (Negative); Hyaline Casts,Urine 1 /lpf (0-2); Ketones,Urine Negative (Negative); Leukocyte Esterase,Urine Trace (Negative); Mucus,Urine Rare /hpf; Nitrite,Urine Negative (Negative); PH, Urine 5.5 (5.0-8.0); Protein,Urine Trace (Negative); RBC,Urine 1 /hpf (0-5); Specific Gravity,Urine 1.014 (1.001-1.035); Squamous Epithelial Cell,Urine <1 /hpf (0-4); Urobilinogen,Urine <2.0 mg/dL (<2.0); WBC,Urine 2 /hpf (0-5)
[2018-07-10 03:05] VITALS: BMI 26.5
[2018-07-10] MEDS: SODIUM CHLORIDE 0.9% 1,000 ML IV SCH ×3 (03:31→20:00)
[2018-07-10] MEDS ORDERED: HYDROcodone/APAP 5-325MG 1 EACH TAB PO PRN (08:37)
[2018-07-10] MEDS ORDERED: ACETAMINOPHEN TAB 500 MG TAB PO PRN (08:37)
[2018-07-10] MEDS ORDERED: ANASTROZOLE 1 MG TAB PO SCH (09:00)
[2018-07-10] MEDS ORDERED: amLODIPine 5 MG TAB PO SCH (09:00)
[2018-07-10 09:38] LABS: Basophils % (A) 1 %; Eosinophils # (A) 0.2 k/uL (0-0.7); Eosinophils % (A) 3 %; HCT 32.5 % (34.0-46.0); Hypochromasia Slight; Lymphocytes # (A) 0.6 k/uL (1.0-4.8); Lymphocytes % (A) 11 %; MCH 31.7 pg (25.0-35.0); MCHC 30.8 g/dL (31.0-37.0); MCV 102.8 fL (80.0-100.0); Macrocytosis Slight; Mean Platelet Volume 6.8; Monocytes # (A) 0.4 k/uL (0-1.0); Monocytes % (A) 8 %; Neutrophils # (A) 4.2 k/uL (1.3-7.7); Neutrophils % (A) 76 %; Platelet Count 245 k/uL (150-450); RBC 3.16 m/uL (3.80-5.40); RDW 12.8 % (11.5-15.5); WBC 5.6 k/uL (3.8-10.6)
--- NOTE | 2018-07-10 09:49 | P.CONS ---
History of Present Illness - Reason for Consult Consult date: 07/10/18 Medical Management Requesting physician: Sven Nolasco - Chief Complaint Left hip fracture - History of Present Illness This is a 83-year-old female patient of Dr. Reece. Patient states that she sat on a chair and felt sharp pain in her left groin and movement with her left hip. Patient denies any fall or trauma. Patient states she is unable to bear any weight on the left side. Patient does report she's had right hip replacement with Dr. Becerra proximally 4 years ago. Patient medical history includes breast cancer in which she's taking anastrozoler, hyperlipidemia, hypertension, heart murmur in which she says she follows with her primary care doctor and has undergone a 2-D echo prior and osteoarthritis. Patient denies any cardiac history including heart irregular heart rhythms, CHF or chest pain. Patient denies any history of diabetes mellitus or COPD. X-ray completed in ER showing acute impacted septic Total fracture left femur. Patient also complaining of right knee pain in which he received injection. Right knee x- ray completed showing osteoarthritis in the lateral joint space. Changes in the lateral femoral condylar probably related to chronic avascular necrosis. Osteoblastic metastatic disease is not excluded excluded no acute fractures. Chest x-ray showing subsegmental atelectasis in the left lower lung field. No heart failure. There is overall improved aeration of lungs compared to last exam. EKG completed showing sinus tachycardia with a heart rate of 105 otherwise normal EKG. Patient's heart rate has improved to the 90s. This time patient denies chest pain or shortness breath. Patient denies nausea vomiting or diarrhea. Patient denies any urinary burning or frequency. Review of Systems Please refer to HPI otherwise unremarkable Past Medical History Past Medical History: Cancer, Eye Disorder, Hyperlipidemia, Hypertension, Osteoarthritis (OA) Additional Past Medical History / Comment(s): Macular degeneration, heart murmer , hx past kidney problems due to motrin use, breast cancer History of Any Multi-Drug Resistant Organisms: None Reported Past Surgical History: Breast Surgery, Joint Replacement Additional Past Surgical History / Comment(s): rt hip replacement, breast biopsy , kirit cataracts Past Anesthesia/Blood Transfusion Reactions: No Reported Reaction Past Psychological History: No Psychological Hx Reported Smoking Status: Former smoker Past Alcohol Use History: Occasional Past Drug Use History: None Reported - Past Family History Mother Family Medical History: Cancer Father Family Medical History: CVA/TIA, Myocardial Infarction ([place]) Medications and Allergies Home Medications Medication Instructions Recorded Confirmed Type Furosemide [Lasix] 20 mg PO MOWEFR 11/15/13 07/09/18 History Loratadine [Claritin] 10 mg PO BID 11/15/13 07/09/18 History Vit A,C & E/Lutein/Minerals 1 tab PO BID 11/15/13 07/09/18 History [Ocuvite with Lutein Tablet] Atorvastatin [Lipitor] 40 mg PO MOTH 11/18/16 07/09/18 History amLODIPine [Norvasc] 2.5 mg PO DAILY 11/22/16 07/09/18 History Acetaminophen [Tylenol Extra 1,000 mg PO Q6H PRN 07/09/18 07/09/18 History Strength] Anastrozole [Arimidex] 1 mg PO DAILY 07/09/18 07/09/18 History Hydrocodone/Acetaminophen [[place] 1 tab PO ONCE PRN 07/09/18 07/09/18 History 5-325] Naproxen Sodium [Aleve] 220 mg PO Q12HR PRN 07/09/18 07/09/18 History Allergies Allergy/AdvReac Type Severity Reaction Status Date / Time No Known Allergies Allergy Verified 07/09/18 20:14 Physical Exam Vitals: Vital Signs Temp Pulse Resp BP Pulse Ox 07/10/18 02:30 98 F 92 18 126/73 98 07/10/18 02:00 96 12 117/61 97 07/10/18 01:30 92 13 113/76 98 07/10/18 01:00 99 17 143/73 96 07/10/18 00:30 98 14 151/92 96 07/10/18 00:00 101 H 16 150/82 95 07/09/18 23:30 101 H 20 113/82 96 07/09/18 23:00 102 H 21 139/77 95 07/09/18 22:20 102 H 13 142/85 95 07/09/18 21:40 97 24 141/79 98 07/09/18 20:40 96 14 111/75 96 07/09/18 19:52 97.8 F 108 H 20 161/138 98 Intake and Output 12/23/18 12/24/18 12/24/18 22:59 06:59 14:59 Intake Total 350 Output Total 600 500 Balance -600 -150 Intake: Intake, IV Titration 350 Amount Sodium Chloride 0.9% 1, 350 000 ml @ 120 mls/hr IV . Q8H20M [facility] Rx#:[id number] Output: Urine 600 500 Uretheral (Deleon) 600 500 Other: Voiding Method Indwelling Catheter Weight 68.039 kg 68.039 kg Head normocephalic Neck supple Lungs clear to auscultation bilaterally no wheezing or crackles Heart regular rate and rhythm S1-S2, no rub or gallop Abdomen is soft nontender nondistended positive bowel sounds no hepatosplenomegaly Extremities no edema Neuro alert and orientated to 3 Results CBC & Chem 7: 07/09/18 20:03 07/09/18 20:03 Labs: Abnormal Lab Results - Last 24 Hours (Table) 07/09/18 07/09/18 07/10/18 Range/Units 20:03 20:03 02:35 WBC 10.7 H (3.8-10.6) k/uL RBC 3.48 L (3.80-5.40) m/uL MCV 100.4 H (80.0-100.0) fL Neutrophils # 9.0 H (1.3-7.7) k/uL Lymphocytes # 0.8 L (1.0-4.8) k/uL Carbon Dioxide 21 L (22-30) mmol/L BUN 32 H (7-17) mg/dL Creatinine 1.41 H (0.52-1.04) mg/dL Glucose 107 H (74-99) mg/dL Alkaline Phosphatase 130 H (38-126) U/L Urine Protein Trace H (Negative) Ur Leukocyte Esterase Trace H (Negative) Urine Mucus Rare H (None) /hpf Assessment and Plan Assessment: 1. Left hip fracture. Left hip asked x-ray completed showing acute impacted subcapital fracture left femur 2. Right knee pain with swelling. Right knee x-ray completed showing osteoarthritis in the lateral joint space. Changes in the lateral femoral condyle I probably related to chronic avascular necrosis. I see less metastases disease is not excluded no acute fracture seen 3. History of breast cancer patient reports history in a half ago patient currently on anastrozole. 4. Urinary tract infection. UA showing small amount of leukocyte Estrace. Patient to receive Rocephin prior to surgery. Urine culture ordered 5. History of osteoarthritis 6. History of previous right hip replacement 7. History of essential hypertension 8. Acute kidney injury. Creatinine 1.41 and bun 32. Repeat labs have been ordered Lasix currently on hold 9. History of hyperlipidemia 10. History of macular degeneration EKG completed showing sinus tachycardia heart rate 105. Heart rate now 90 Chest x-ray completed showing subsegmental atelectasis in the left lower lung field. No heart failure. There is overall improved aeration of the lungs compared to last exam Thank you for this consultation we will continue to follow patient closely throughout stay Time with Patient: Greater than 30 (Greater than 60% of the total time spent in counseling and coordination of care. I performed an examination of the patient and discussed their management with the Nurse Practitioner. I have reviewed the Nurse Practitioner's notes and agree with the documented findings and plan of care)
[2018-07-10 09:52] LABS: Albumin 3.6 g/dL (3.5-5.0); Calcium 8.8 mg/dL (8.4-10.2); Potassium 4.7 mmol/L (3.5-5.1); Total Bilirubin 0.7 mg/dL (0.2-1.3); Total Protein 6.6 g/dL (6.3-8.2)
--- NOTE | 2018-07-10 10:37 | P.HPOR ---
History of Present Illness H&P Date: 07/10/18 Chief Complaint: Left hip/right knee pain The patient is an 83-year-old community ambulator with a cane who presents after having extreme left hip pain yesterday after sitting down. She notes she has had some pain over the past several weeks. She does have a history of breast cancer treated with chemotherapy and surgery. Review of Systems Musculoskeletal: Reports as per HPI Musculoskeletal: right: knee pain, knee swelling Past Medical History Past Medical History: Cancer, Eye Disorder, Hyperlipidemia, Hypertension, Osteoarthritis (OA) Additional Past Medical History / Comment(s): Macular degeneration, heart murmer , hx past kidney problems due to motrin use, breast cancer History of Any Multi-Drug Resistant Organisms: None Reported Past Surgical History: Breast Surgery, Joint Replacement (Right total hip arthroplasty) Additional Past Surgical History / Comment(s): rt hip replacement, breast biopsy , kirit cataracts Past Anesthesia/Blood Transfusion Reactions: No Reported Reaction Past Psychological History: No Psychological Hx Reported Smoking Status: Former smoker Past Alcohol Use History: Occasional Past Drug Use History: None Reported - Past Family History Mother Family Medical History: Cancer Father Family Medical History: CVA/TIA, Myocardial Infarction ([place]) Medications and Allergies Home Medications Medication Instructions Recorded Confirmed Type Furosemide [Lasix] 20 mg PO MOWEFR 11/15/13 07/09/18 History Loratadine [Claritin] 10 mg PO BID 11/15/13 07/09/18 History Vit A,C & E/Lutein/Minerals 1 tab PO BID 11/15/13 07/09/18 History [Ocuvite with Lutein Tablet] Atorvastatin [Lipitor] 40 mg PO MOTH 11/18/16 07/09/18 History amLODIPine [Norvasc] 2.5 mg PO DAILY 11/22/16 07/09/18 History Acetaminophen [Tylenol Extra 1,000 mg PO Q6H PRN 07/09/18 07/09/18 History Strength] Anastrozole [Arimidex] 1 mg PO DAILY 07/09/18 07/09/18 History Hydrocodone/Acetaminophen [[place] 1 tab PO ONCE PRN 07/09/18 07/09/18 History 5-325] Naproxen Sodium [Aleve] 220 mg PO Q12HR PRN 07/09/18 07/09/18 History Allergies Allergy/AdvReac Type Severity Reaction Status Date / Time No Known Allergies Allergy Verified 07/09/18 20:14 Physical Examination - Hip left Gait: other (Nonambulatory) Tenderness with palpation: other (Diffuse) ROM: extension: 0 degrees ROM: flexion: 30 degrees (With pain) Crepitus with motion: Yes Strength: extension: 3/5 (With pain) Strength: flexion: 3/5 - Knee right Appearance: effusion Effusion grade: grade 2 Valgus alignment in stance: 10 degrees Tenderness with palpation: lateral Pain: throughout ROM - Fracture left hip Appearance: normal Compartments: soft Distal extremity neurovascularly intact: Yes Distal joint involvement: No Other injury: vascular injury: no, nerve injury: no Results - Labs Labs: Abnormal Lab Results - Last 24 Hours (Table) 07/09/18 07/09/18 07/10/18 Range/Units 20:03 20:03 02:35 WBC 10.7 H (3.8-10.6) k/uL RBC 3.48 L (3.80-5.40) m/uL Hgb (11.4-16.0) gm/dL Hct (34.0-46.0) % MCV 100.4 H (80.0-100.0) fL MCHC (31.0-37.0) g/dL Neutrophils # 9.0 H (1.3-7.7) k/uL Lymphocytes # 0.8 L (1.0-4.8) k/uL Chloride (98-107) mmol/L Carbon Dioxide 21 L (22-30) mmol/L BUN 32 H (7-17) mg/dL Creatinine 1.41 H (0.52-1.04) mg/dL Glucose 107 H (74-99) mg/dL Alkaline Phosphatase 130 H (38-126) U/L Urine Protein Trace H (Negative) Ur Leukocyte Esterase Trace H (Negative) Urine Mucus Rare H (None) /hpf 07/10/18 07/10/18 Range/Units 08:55 08:55 WBC (3.8-10.6) k/uL RBC 3.16 L (3.80-5.40) m/uL Hgb 10.0 L D (11.4-16.0) gm/dL Hct 32.5 L (34.0-46.0) % MCV 102.8 H (80.0-100.0) fL MCHC 30.8 L (31.0-37.0) g/dL Neutrophils # (1.3-7.7) k/uL Lymphocytes # 0.6 L (1.0-4.8) k/uL Chloride 110 H (98-107) mmol/L Carbon Dioxide 20 L (22-30) mmol/L BUN 24 H (7-17) mg/dL Creatinine 1.13 H (0.52-1.04) mg/dL Glucose (74-99) mg/dL Alkaline Phosphatase (38-126) U/L Urine Protein (Negative) Ur Leukocyte Esterase (Negative) Urine Mucus (None) /hpf H & H 07/09/18 07/10/18 Range/Units 20:03 08:55 Hgb 11.6 10.0 L D (11.4-16.0) gm/dL Hct 35.0 32.5 L (34.0-46.0) % Coagulation 07/09/18 Range/Units 20:03 INR 1.0 (<1.2) Result Diagrams: 07/10/18 08:55 07/10/18 08:55 - Diagnostic results Hip x-ray: image reviewed (Displaced left subcapital femoral neck fracture/no definite blastic or lytic lesion) Knee x-ray: image reviewed (Severe lateral compartment a arthrosis right knee) Assessment and Plan Assessment: Displaced left subcapital femoral neck fracture History of breast cancer Right knee severe lateral compartment osteoarthrosis with the fusion (1) Fracture of hip, left, closed Current Visit: Yes Status: Acute Priority: Medium Code(s): S72.002A - FRACTURE OF UNSP PART OF NECK OF LEFT FEMUR, INIT SNOMED Code(s): 899307656 Plan: I talked to the patient and her family regarding her condition and treatment options. Her left femoral neck fracture may have been caused by treatment with Anastozole. We will plan to proceed with left hip hemiarthroplasty in addition aspiration and cortisone injection for the right knee. Time with Patient: Greater than 30
[2018-07-10] MEDS ORDERED: IV FLUID CONTINUATION 1,000 ML IV ONE (11:20)
[2018-07-10] MEDS ORDERED: methylPREDNISolone ACETATE 80 MG/ML 1 ML VIAL INJ ONE (12:09)
[2018-07-10] MEDS ORDERED: LIDOCAINE 1% INJ 10MG/ML (20 ML MDV) SQ ONE (12:09)
[2018-07-10] MEDS ORDERED: SODIUM CHLORIDE 0.9% 1,000 ML IV ONE (12:34)
--- NOTE | 2018-07-10 13:42 | P.PN ---
Progress Note - Text Progress Note Date: 07/10/18 Dr. Cavazos covering for Dr. Dr. Leyva 07/11/2018 to 07/17/2018
[2018-07-10] MEDS ORDERED: MAGNESIUM HYDROXIDE 2,400 MG/10 ML CUP PO PRN (14:12)
[2018-07-10] MEDS ORDERED: MORPHINE SULFATE 2 MG/ML SYRINGE IV PRN ×2 (14:12)
[2018-07-10] MEDS ORDERED: ONDANSETRON 4 MG/2 ML VIAL IVP PRN (14:12)
--- NOTE | 2018-07-10 14:25 | P.OP ---
Date of Procedure: 07/10/18 Preoperative Diagnosis: Displaced left subcapital femoral neck fracture/right knee osteoarthrosis with effusion Postoperative Diagnosis: Same Procedure(s) Performed: Left hip hemiarthroplastypress-fit/right knee aspiration with cortisone injection Implants: Depuy Corail size 14 standard collared press-fit femoral stem, -3 neck, 44 mm unipolar head Anesthesia: spinal Surgeon: Ian Cabrera Estimated Blood Loss (ml): 50 Pathology: other (Femoral head) Condition: stable Disposition: PACU Indications for Procedure: The patient's an 83-year-old community ambulator presents after injuring her left hip yesterday. She notes she felt a pop/crack when she sat down. She was unable to bear weight after that. Upon evaluation she is noted of evidence of a displaced left subcapital femoral neck fracture. She has been on treatment for her previous breast cancer. A discussion of the risks and benefits of operative intervention was made with patient and her family. She opted to proceed. She also wanted to proceed with aspiration and cortisone injection for her right knee effusion/arthritis. Specific risks of surgery to include infection, neurovascular injury, development of blood clots, possible instability, possible leg length discrepancy, possible need for subsequent procedures was discussed. Informed consent was obtained. Operative Findings: As below Description of Procedure: The patient was brought to the operating room, and after induction of spinal anesthesia was transferred to the OR table. The right lateral knee was prepped with DuraPrep. I aspirated 60 mL of serous joint fluid. 80 mg of methylprednisolone and 3 mL of 1% lidocaine was injected into her knee. She was then positioned in a lateral decubitus position with the pelvis stabilized perpendicular to the floor with a Montral positioner. Bony processes were appropriately padded. Axillary roll was placed. The left lower semi-was prepped and draped in normal fashion. A 12 cm incision was made centered over the greater trochanter extending superiorly to the level of the ASIS and this was extended distally in line with the femoral shaft. The skin and subcutaneous tissues were divided sharply. Electrocautery was used for hemostasis. The fascia sylvia and gluteus adia fascia was split in line with the skin incision. The muscle fibers were bluntly dissected proximally. A self -retaining retractor was placed. The anterior and posterior margins of the gluteus medius muscles were identified and the anterior two thirds detached from the greater trochanter with electrocautery. The gluteus minimus tendon was identified and detached in a similar fashion. A T-shaped capsulotomy is performed. The capsular flaps were tagged with #2 Ethibond suture. The femoral neck fracture was then identified. A lower neck cut was made approximately 1 1/2 cm above the level of the lesser trochanter at a 45 and the shaft with a sagittal saw. The head was then extracted with a corkscrew. The acetabulum was inspected. No significant chondral injury was noted.Attention was then paid towards preparing the proximal femur. A box chisel was used to open the metaphyseal region. A canal finder was used to find the femoral canal. Sequential broaching was performed with the leg perpendicular to the floor in 15 of anteversion. I went up to a size 14 broach. A calcar mill used to fashion a medial calcar. There was good rotational stability. A standard neck along with a -3/44 mm unipolar head was placed. The hip was gently relocated. It was taken through range of motion. It was felt to be stable in flexion and extension with internal/external rotation. I felt there was adequate zoroastrianism of soft tissue tension. The hip was gently dislocated. The trial components were then removed. The final size 14 standard/collared femoral stem was inserted with the leg perpendicular to the floor in 15 of anteversion. This was fully seated. There was good rotational stability. The -3 neck/44 mm unipolar head was gently impacted. The hip was gently relocated. Again it was taken through range of motion felt to be stable in flexion and extension with internal extra rotation. Again I felt there was adequate zoroastrianism of soft tissue tension. Pulsatile lavage was utilized. The capsular layer was closed with #2 Ethibond suture. There was minimal drainage therefore a deep drain was not placed. The gluteus medius and minimus tendons were reattached to the greater trochanter with #2 Ethibond suture. The fascia sylvia and gluteus adia fascia was closed with #2 Ethibond suture. The subcu tissues were reapproximated interrupted 2-0 Vicryl sutures. The skin was reapproximated with 3-0 subcuticular strata fix suture. Skin tape and adhesive was applied. A sterile dressing was applied. The patient was then awoken from sedation and transferred to recovery room in fair condition. Blood loss was estimated at 50 mL. No complications were incurred. Sponge and needle counts were correct at the end of the case.
[2018-07-10] MEDS ORDERED: LACTATED RINGERS 1,000 ML IV ONE ×2 (14:30)
--- NOTE | 2018-07-10 15:42 | XR ---
EXAMINATION TYPE: XR Hip Limited LT DATE OF EXAM: 07/10/2018 COMPARISON: NONE HISTORY: 83-year-old female assess postoperative alignment TECHNIQUE: AP portable view FINDINGS: Image shows placement of left hip hemiarthroplasty. The femoral stem component appears well seated. A lignment grossly intact. No periprosthetic fracture seen. Soft tissue air related to recent operation . IMPRESSION: Uncomplicated postoperative appearance left hip hemiarthroplasty.
[2018-07-10] MEDS: LORATADINE 10 MG TAB PO SCH ×2 (15:59→20:39)
[2018-07-10] MEDS: VIT A,C & E-LUTEIN-MINERALS 1 EACH TAB PO SCH ×2 (15:59→20:39)
[2018-07-10] MEDS: ceFAZolin IN SWFI 2 GM/20 ML SYRINGE IVP SCH ×2 (16:45→23:19)
[2018-07-10 17:21] LABS: Basophils % (A) 0 %; Eosinophils # (A) 0.2 k/uL (0-0.7); Eosinophils % (A) 2 %; HCT 34.5 % (34.0-46.0); HGB 10.6 gm/dL (11.4-16.0); Hypochromasia Moderate; Lymphocytes # (A) 0.4 k/uL (1.0-4.8); Lymphocytes % (A) 4 %; MCH 32.3 pg (25.0-35.0); MCHC 30.6 g/dL (31.0-37.0); MCV 105.2 fL (80.0-100.0); Macrocytosis Slight; Mean Platelet Volume 7.3; Monocytes # (A) 0.4 k/uL (0-1.0); Monocytes % (A) 5 %; Neutrophils # (A) 7.7 k/uL (1.3-7.7); Neutrophils % (A) 87 %; Platelet Count 222 k/uL (150-450); RBC 3.28 m/uL (3.80-5.40); RDW 13.2 % (11.5-15.5); WBC 8.8 k/uL (3.8-10.6)
[2018-07-11] MEDS: HYDROmorphone 0.5 MG/0.5 ML SYRINGE IVP PRN ×2 (03:06→07:47)
[2018-07-11] MEDS: SODIUM CHLORIDE 0.9% 1,000 ML IV SCH ×3 (03:08→21:16)
[2018-07-11 08:39] LABS: Basophils % (A) 0 %; Eosinophils # (A) 0.1 k/uL (0-0.7); Eosinophils % (A) 1 %; HCT 27.1 % (34.0-46.0); Hypochromasia Slight; Lymphocytes # (A) 0.5 k/uL (1.0-4.8); Lymphocytes % (A) 7 %; MCH 32.6 pg (25.0-35.0); MCHC 31.7 g/dL (31.0-37.0); MCV 102.9 fL (80.0-100.0); Macrocytosis Slight; Mean Platelet Volume 6.5; Monocytes # (A) 0.4 k/uL (0-1.0); Monocytes % (A) 6 %; Neutrophils # (A) 5.5 k/uL (1.3-7.7); Neutrophils % (A) 85 %; Platelet Count 225 k/uL (150-450); RBC 2.63 m/uL (3.80-5.40); RDW 12.9 % (11.5-15.5); WBC 6.5 k/uL (3.8-10.6)
[2018-07-11 08:48] LABS: HGB 8.6 gm/dL (11.4-16.0)
[2018-07-11 08:50] LABS: Albumin 3.2 g/dL (3.5-5.0); Calcium 8.2 mg/dL (8.4-10.2); Potassium 5.2 mmol/L (3.5-5.1); Total Bilirubin 0.5 mg/dL (0.2-1.3); Total Protein 6.1 g/dL (6.3-8.2)
--- NOTE | 2018-07-11 10:33 | P.PN ---
Progress Note - Text Progress Note Date: 07/11/18 S: The patient has no complaints. They deny shortness of breath or chest pain. O: Afebrile, vital signs stable Homans left lower extremity Distal neurovascular status intact in the left lower extremity Incision clean, dry , and intact left hip A/P: Postoperative day 1 status post left hip hemiarthroplasty Medical management DVT prophylaxis with Xarelto Discontinue Deleon Incentives spirometer Discharge planning/possible rehab facility
[2018-07-11] MEDS: Acetaminophen-Codeine 300-30mg TAB PO PRN ×3 (11:51→21:15)
[2018-07-11] MEDS: ANASTROZOLE 1 MG TAB PO SCH ×2 (11:52→11:58)
[2018-07-11] MEDS: amLODIPine 2.5 MG TAB PO SCH (11:52)
[2018-07-11] MEDS: LORATADINE 10 MG TAB PO SCH ×2 (11:52→21:15)
[2018-07-11] MEDS: RIVAROXABAN 10 MG TAB PO SCH (11:52)
[2018-07-11] MEDS: VIT A,C & E-LUTEIN-MINERALS 1 EACH TAB PO SCH ×2 (11:52→21:15)
[2018-07-11] MEDS: FERROUS SULFATE 325 MG TAB PO SCH (17:22)
--- NOTE | 2018-07-12 03:26 | P.PN ---
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 Reece. Patient states that she sat on a chair and felt sharp pain in her left groin and movement with her left hip. Patient denies any fall or trauma. Patient states she is unable to bear any weight on the left side. Patient does report she's had right hip replacement with Dr. Becerra proximally 4 years ago. Patient medical history includes breast cancer in which she's taking anastrozoler, hyperlipidemia, hypertension, heart murmur in which she says she follows with her primary care doctor and has undergone a 2-D echo prior and osteoarthritis. Patient denies any cardiac history including heart irregular heart rhythms, CHF or chest pain. Patient denies any history of diabetes mellitus or COPD. X-ray completed in ER showing acute impacted septic Total fracture left femur. Patient also complaining of right knee pain in which he received injection. Right knee x- ray completed showing osteoarthritis in the lateral joint space. Changes in the lateral femoral condylar probably related to chronic avascular necrosis. Osteoblastic metastatic disease is not excluded excluded no acute fractures. Chest x-ray showing subsegmental atelectasis in the left lower lung field. No heart failure. There is overall improved aeration of lungs compared to last exam. EKG completed showing sinus tachycardia with a heart rate of 105 otherwise normal EKG. Patient's heart rate has improved to the 90s. This time patient denies chest pain or shortness breath. Patient denies nausea vomiting or diarrhea. Patient denies any urinary burning or frequency. Objective - Vital Signs Vital signs: Vital Signs Temp 98.3 F 07/12/18 01:50 Pulse 94 07/12/18 01:50 Resp 18 07/12/18 01:50 BP 118/70 07/12/18 01:50 Pulse Ox 93 L 07/12/18 01:50 Intake & Output 07/11/18 07/11/18 07/12/18 06:59 18:59 06:59 Intake Total 1400 1110 240 Output Total 250 500 Balance 1150 1110 -260 Intake: IV 960 Sodium Chloride 0.9% 1, 960 000 ml @ 120 mls/hr IV . Q8H20M [facility] Rx#:[id number] Intake, IV Titration 1200 Amount Lactated Ringers 1,000 ml 1000 @ 0 mls/hr IV [facility] Rx#:[id number] Sodium Chloride 0.9% 1, 200 000 ml @ 0 mls/hr IV [facility] Rx#:[id number] Oral 200 150 240 Output: Urine 250 500 Other: Voiding Method Indwelling Catheter Indwelling Catheter # Voids 2 - Exam Head normocephalic Neck supple Lungs clear to auscultation bilaterally no wheezing or crackles Heart regular rate and rhythm S1-S2, no rub or gallop Abdomen is soft nontender nondistended positive bowel sounds no hepatosplenomegaly Extremities no edema Neuro alert and orientated to 3 - Labs CBC & Chem 7: 07/11/18 07:43 07/11/18 07:43 Labs: Abnormal Lab Results - Last 24 Hours (Table) 07/11/18 07/11/18 Range/Units 07:43 07:43 RBC 2.63 L (3.80-5.40) m/uL Hgb 8.6 L D (11.4-16.0) gm/dL Hct 27.1 L (34.0-46.0) % MCV 102.9 H (80.0-100.0) fL Lymphocytes # 0.5 L (1.0-4.8) k/uL Sodium 136 L (137-145) mmol/L Potassium 5.2 H (3.5-5.1) mmol/L Chloride 109 H (98-107) mmol/L Carbon Dioxide 21 L (22-30) mmol/L Creatinine 1.07 H (0.52-1.04) mg/dL Glucose 112 H (74-99) mg/dL Calcium 8.2 L (8.4-10.2) mg/dL Total Protein 6.1 L (6.3-8.2) g/dL Albumin 3.2 L (3.5-5.0) g/dL Microbiology - Last 24 Hours (Table) 07/10/18 10:53 Urine Culture - Final Urine,Catheterized Assessment and Plan Assessment: Left hip fracture/ subcapital racture left femur, Right knee effusion status post arthrocentesis History of breast cancer UTI Degenerative joint disease osteoarthritis Stage II renal failure Hypertension hypertensive cardiovascular disease Plan: Continue deep breathing sense incentive spirometry DVT prophylaxis as per orthopedics protocol Continue home medications Further recommendations pending plan of care as per clinical response of the patient follow up on the right knee fluid Time with Patient: Greater than 30
[2018-07-12] MEDS: Acetaminophen-Codeine 300-30mg TAB PO PRN ×4 (04:06→23:24)
[2018-07-12] MEDS: SODIUM CHLORIDE 0.9% 1,000 ML IV SCH ×3 (04:07→23:19)
[2018-07-12 08:12] LABS: Basophils % (A) 0 %; Eosinophils # (A) 0.2 k/uL (0-0.7); Eosinophils % (A) 3 %; HGB 7.6 gm/dL (11.4-16.0); Hypochromasia Moderate; Lymphocytes # (A) 0.5 k/uL (1.0-4.8); Lymphocytes % (A) 7 %; MCH 33.3 pg (25.0-35.0); MCHC 31.5 g/dL (31.0-37.0); MCV 105.7 fL (80.0-100.0); Macrocytosis Slight; Mean Platelet Volume 7.2; Monocytes # (A) 0.5 k/uL (0-1.0); Monocytes % (A) 6 %; Neutrophils # (A) 6.5 k/uL (1.3-7.7); Neutrophils % (A) 82 %; Platelet Count 215 k/uL (150-450); RBC 2.27 m/uL (3.80-5.40); RDW 12.9 % (11.5-15.5); WBC 7.9 k/uL (3.8-10.6)
[2018-07-12 08:43] LABS: Albumin 2.8 g/dL (3.5-5.0); Potassium 4.6 mmol/L (3.5-5.1); Total Bilirubin 0.4 mg/dL (0.2-1.3); Total Protein 5.6 g/dL (6.3-8.2)
--- NOTE | 2018-07-12 10:19 | P.PN ---
Subjective Progress Note Date: 07/12/18 Principal diagnosis: Status post left hip hemiarthroplasty Patient is seen today resting in her hospital bed. Her daughter is present at bedside. She is resting comfortably. She notes minimal discomfort involving her left hip. She denies any acute chest pain or shortness of breath. Objective - Vital Signs Vital signs: Vital Signs Temp 98.9 F 07/12/18 06:50 Pulse 95 07/12/18 06:50 Resp 16 07/12/18 06:50 BP 117/75 07/12/18 06:50 Pulse Ox 93 L 07/12/18 06:50 Intake & Output 07/11/18 07/12/18 07/12/18 18:59 06:59 18:59 Intake Total 1110 1680 Output Total 500 Balance 1110 1180 Intake: IV 960 Sodium Chloride 0.9% 1, 960 000 ml @ 120 mls/hr IV . Q8H20M [facility] Rx#:[id number] Intake, IV Titration 1200 Amount Sodium Chloride 0.9% 1, 1200 000 ml @ 120 mls/hr IV . Q8H20M [facility] Rx#:[id number] Oral 150 480 Output: Urine 500 Other: Voiding Method Indwelling Catheter # Voids 3 - Exam Left lower extremity: Incision is clean, dry, and intact. The exofin fusion tape is in good condition. There is minimal soft tissue swelling and ecchymosis surrounding the medial and lateral aspects of the incision. Calf is soft, no tenderness with palpation. Plantar flexion, dorsiflexion, EHL, FHL are intact. Sensory exam to light touch throughout the extremity is intact, dorsal pedis pulses 2+. - Labs CBC & Chem 7: 07/12/18 07:06 07/12/18 07:06 Labs: Abnormal Lab Results - Last 24 Hours (Table) 07/12/18 07/12/18 Range/Units 07:06 07:06 RBC 2.27 L (3.80-5.40) m/uL Hgb 7.6 L (11.4-16.0) gm/dL Hct 24.0 L (34.0-46.0) % MCV 105.7 H (80.0-100.0) fL Lymphocytes # 0.5 L (1.0-4.8) k/uL Chloride 113 H (98-107) mmol/L Carbon Dioxide 19 L (22-30) mmol/L Creatinine 1.08 H (0.52-1.04) mg/dL Glucose 101 H (74-99) mg/dL Calcium 8.0 L (8.4-10.2) mg/dL Total Protein 5.6 L (6.3-8.2) g/dL Albumin 2.8 L (3.5-5.0) g/dL Microbiology - Last 24 Hours (Table) 07/10/18 10:53 Urine Culture - Final Urine,Catheterized Assessment and Plan Plan: Assessment: Post op day #1 status post left hip hemiarthroplasty Blood loss anemia, expected postsurgical outcome Plan: Pain control, continue current medication GI and DVT prophylaxis, continue Xarelto 10 mg daily Due to recent hemoglobin value, I did order a type and screen with also 1 unit of packed red blood cells to be given Continue with physical therapy daily Daily dressing changes Medical recommendations Discharge planning: Plan for discharge to rehab in the next few days Time with Patient: Less than 30
[2018-07-12] MEDS: FERROUS SULFATE 325 MG TAB PO SCH ×2 (12:32→18:57)
[2018-07-12] MEDS: ANASTROZOLE 1 MG TAB PO SCH (12:32)
[2018-07-12] MEDS: amLODIPine 2.5 MG TAB PO SCH (12:32)
[2018-07-12] MEDS: LORATADINE 10 MG TAB PO SCH ×2 (12:33→19:46)
[2018-07-12] MEDS: RIVAROXABAN 10 MG TAB PO SCH (12:33)
[2018-07-12] MEDS: VIT A,C & E-LUTEIN-MINERALS 1 EACH TAB PO SCH ×2 (12:48→22:25)
[2018-07-12 14:57] LABS: Basophils % (A) 0 %; Eosinophils # (A) 0.3 k/uL (0-0.7); Eosinophils % (A) 3 %; HCT 25.7 % (34.0-46.0); HGB 7.9 gm/dL (11.4-16.0); Hypochromasia Moderate; Lymphocytes # (A) 0.6 k/uL (1.0-4.8); Lymphocytes % (A) 6 %; MCH 32.5 pg (25.0-35.0); MCHC 30.8 g/dL (31.0-37.0); MCV 105.6 fL (80.0-100.0); Macrocytosis Slight; Mean Platelet Volume 6.8; Monocytes # (A) 0.6 k/uL (0-1.0); Monocytes % (A) 7 %; Neutrophils # (A) 7.7 k/uL (1.3-7.7); Neutrophils % (A) 82 %; Platelet Count 246 k/uL (150-450); RBC 2.44 m/uL (3.80-5.40); RDW 13.1 % (11.5-15.5); WBC 9.4 k/uL (3.8-10.6)
--- NOTE | 2018-07-12 15:49 | CDI ---
Documentation Clarification Form Date: 07/12/2018 3:38:00 PM From: Valerie OmalleyLeungMATT soriano, CCDS Admit Date: 07/10/2018 2:09:00 AM Patient Name: Estelita Vogel Visit Number: [id number] Discharge Date: ATTENTION: The Clinical Documentation Specialists (CDI) and [facility] Coding Staff appreciate your assistance in clarifying documentation. Please respond to the clarification below the line at the bottom and electronically sign. The CDI & [facility] Coding staff will review the response and follow-up if needed. Please note: Queries are made part of the Legal Health Record. If you have any questions, please contact the author of this message via ITS. Dr. Ian Cabrera: Per the 07/12 Orthopedic progress note: " Blood loss anemia, expected postsurgical outcome." History/Risk Factors: OA, Breast CA sp chemo/rad, Hyperlipidemia, Hypertension, former smoker & previous right hip replacement. Clinical indicators: Presented with extreme left hip pain, diagnosed with a displaced left subcapital femoral neck fracture. Hemoglobin: 11.6 - 10.0* - 10.6* - 8.6* Hematocrit: 35.0 - 32.5* - 34.5 - 27.1 Treatment: Monitoring labs: H/H. IV pain meds, IV fluids including bolus upon arrival. In order to capture the severity of condition, please clarify the acuity of the documented blood loss anemia: Acute blood loss anemia Acute on chronic blood loss anemia Chronic blood loss anemia Unable to determine Other, please specify (Last Revision: April 2017) Acute blood loss anemia MTDD
--- NOTE | 2018-07-12 15:50 | P.PN ---
Subjective Progress Note Date: 07/12/18 Principal diagnosis: Left hip fracture status post impacted subcapital fracture left femur, right knee swelling degenerative joint disease osteoarthritis, breast cancer, UTI, degenerative joint disease osteoarthritis, hypertension hypertensive cardiovascular disease, chronic renal failure stage II to 3X dyslipidemia, history of macular degeneration 07/12/2018, patient seen eval reexamined during the rounds clinically patient has been doing better in terms of breathing, respiratory status has been stable , patient has been doing deep breathing sense incentive spirometry, patient has been found to have a low hemoglobin scheduled for transfusion with 1 unit of packed RBC, labs reviewed medications reviewed 07/11/2018, patient seen eval examined during the rounds clinically has been doing well breathing comfortably patient is undergoing deep breathing exercise incentive spirometry as well him a This is a 83-year-old female patient of Dr. Reece. Patient states that she sat on a chair and felt sharp pain in her left groin and movement with her left hip. Patient denies any fall or trauma. Patient states she is unable to bear any weight on the left side. Patient does report she's had right hip replacement with Dr. Becerra proximally 4 years ago. Patient medical history includes breast cancer in which she's taking anastrozoler, hyperlipidemia, hypertension, heart murmur in which she says she follows with her primary care doctor and has undergone a 2-D echo prior and osteoarthritis. Patient denies any cardiac history including heart irregular heart rhythms, CHF or chest pain. Patient denies any history of diabetes mellitus or COPD. X-ray completed in ER showing acute impacted septic Total fracture left femur. Patient also complaining of right knee pain in which he received injection. Right knee x- ray completed showing osteoarthritis in the lateral joint space. Changes in the lateral femoral condylar probably related to chronic avascular necrosis. Osteoblastic metastatic disease is not excluded excluded no acute fractures. Chest x-ray showing subsegmental atelectasis in the left lower lung field. No heart failure. There is overall improved aeration of lungs compared to last exam. EKG completed showing sinus tachycardia with a heart rate of 105 otherwise normal EKG. Patient's heart rate has improved to the 90s. This time patient denies chest pain or shortness breath. Patient denies nausea vomiting or diarrhea. Patient denies any urinary burning or frequency. Objective - Vital Signs Vital signs: Vital Signs Temp 99.0 F 07/12/18 15:17 Pulse 91 07/12/18 15:17 Resp 16 07/12/18 15:17 BP 114/71 07/12/18 15:17 Pulse Ox 95 07/12/18 15:17 Intake & Output 07/11/18 07/12/18 07/12/18 18:59 06:59 18:59 Intake Total 1110 1680 0 Output Total 500 Balance 1110 1180 0 Intake: IV 960 Sodium Chloride 0.9% 1, 960 000 ml @ 120 mls/hr IV . Q8H20M [facility] Rx#:[id number] Intake, IV Titration 1200 Amount Sodium Chloride 0.9% 1, 1200 000 ml @ 120 mls/hr IV . Q8H20M [facility] Rx#:[id number] Oral 150 480 Blood Product 0 Rc As-1 Unit 0 [id number] Output: Urine 500 Other: Voiding Method Indwelling Catheter # Voids 3 - Exam Head normocephalic Neck supple Lungs clear to auscultation bilaterally no wheezing or crackles Heart regular rate and rhythm S1-S2, no rub or gallop Abdomen is soft nontender nondistended positive bowel sounds no hepatosplenomegaly Extremities no edema Neuro alert and orientated to 3 - Labs CBC & Chem 7: 07/12/18 14:42 07/12/18 07:06 Labs: Abnormal Lab Results - Last 24 Hours (Table) 07/12/18 07/12/18 07/12/18 Range/Units 07:06 07:06 08:55 RBC 2.27 L (3.80-5.40) m/uL Hgb 7.6 L (11.4-16.0) gm/dL Hct 24.0 L (34.0-46.0) % MCV 105.7 H (80.0-100.0) fL MCHC (31.0-37.0) g/dL Lymphocytes # 0.5 L (1.0-4.8) k/uL Chloride 113 H (98-107) mmol/L Carbon Dioxide 19 L (22-30) mmol/L Creatinine 1.08 H (0.52-1.04) mg/dL Glucose 101 H (74-99) mg/dL Calcium 8.0 L (8.4-10.2) mg/dL Total Protein 5.6 L (6.3-8.2) g/dL Albumin 2.8 L (3.5-5.0) g/dL Crossmatch See Detail 07/12/18 Range/Units 14:42 RBC 2.44 L (3.80-5.40) m/uL Hgb 7.9 L (11.4-16.0) gm/dL Hct 25.7 L (34.0-46.0) % MCV 105.6 H (80.0-100.0) fL MCHC 30.8 L (31.0-37.0) g/dL Lymphocytes # 0.6 L (1.0-4.8) k/uL Chloride (98-107) mmol/L Carbon Dioxide (22-30) mmol/L Creatinine (0.52-1.04) mg/dL Glucose (74-99) mg/dL Calcium (8.4-10.2) mg/dL Total Protein (6.3-8.2) g/dL Albumin (3.5-5.0) g/dL Crossmatch Microbiology - Last 24 Hours (Table) 07/10/18 10:53 Urine Culture - Final Urine,Catheterized Assessment and Plan Assessment: Acute on chronic anemia Left hip fracture/ subcapital racture left femur, Right knee effusion status post arthrocentesis History of breast cancer UTI Degenerative joint disease osteoarthritis Stage II renal failure Hypertension hypertensive cardiovascular disease Plan: Continue deep breathing sense incentive spirometry DVT prophylaxis as per orthopedics protocol Continue home medications Further recommendations pending plan of care as per clinical response of the patient follow up on the right knee fluid Patient will be transfuse with 1 unit of packed RBC Time with Patient: Greater than 30
[2018-07-13] MEDS: Acetaminophen-Codeine 300-30mg TAB PO PRN ×3 (02:35→11:53)
[2018-07-13 07:33] LABS: Calcium 8.5 mg/dL (8.4-10.2); Potassium 4.6 mmol/L (3.5-5.1); Total Bilirubin 0.6 mg/dL (0.2-1.3); Total Protein 5.9 g/dL (6.3-8.2)
[2018-07-13 07:41] LABS: Basophils % (A) 0 %; Eosinophils # (A) 0.4 k/uL (0-0.7); Eosinophils % (A) 4 %; HCT 27.6 % (34.0-46.0); HGB 8.7 gm/dL (11.4-16.0); Hypochromasia Slight; Lymphocytes # (A) 0.7 k/uL (1.0-4.8); Lymphocytes % (A) 8 %; MCH 31.5 pg (25.0-35.0); MCHC 31.7 g/dL (31.0-37.0); Macrocytosis Slight; Mean Platelet Volume 6.8; Monocytes # (A) 0.5 k/uL (0-1.0); Monocytes % (A) 6 %; Neutrophils # (A) 7.1 k/uL (1.3-7.7); Neutrophils % (A) 80 %; Platelet Count 255 k/uL (150-450); RBC 2.78 m/uL (3.80-5.40); RDW 15.9 % (11.5-15.5); WBC 8.8 k/uL (3.8-10.6)
[2018-07-13 07:43] LABS: MCV 99.4 fL (80.0-100.0)
[2018-07-13] MEDS: LORATADINE 10 MG TAB PO SCH ×2 (08:36→20:19)
[2018-07-13] MEDS: FERROUS SULFATE 325 MG TAB PO SCH ×2 (08:36→17:50)
[2018-07-13] MEDS: amLODIPine 2.5 MG TAB PO SCH (08:36)
[2018-07-13] MEDS: ANASTROZOLE 1 MG TAB PO SCH ×2 (08:36→08:39)
[2018-07-13] MEDS: RIVAROXABAN 10 MG TAB PO SCH (08:37)
[2018-07-13] MEDS: VIT A,C & E-LUTEIN-MINERALS 1 EACH TAB PO SCH ×2 (08:37→20:30)
--- NOTE | 2018-07-13 12:12 | P.PN ---
Subjective Progress Note Date: 07/13/18 Principal diagnosis: Status post left hip hemiarthroplasty Patient is seen today resting in her hospital bed. Her daughter is present at bedside. She is resting comfortably. She notes minimal discomfort involving her left hip. She denies any acute chest pain or shortness of breath. Objective - Vital Signs Vital signs: Vital Signs Temp 97.7 F 07/13/18 07:45 Pulse 93 07/13/18 08:35 Resp 16 07/13/18 08:35 BP 135/70 07/13/18 07:45 Pulse Ox 95 07/13/18 07:45 Intake & Output 07/12/18 07/13/18 07/13/18 18:59 06:59 18:59 Intake Total 310 400 Balance 310 400 Intake: Oral 400 Blood Product 310 Rc As-1 Unit 310 [id number] Other: # Voids 1 2 # Bowel Movements 2 - Exam Left lower extremity: Incision is clean, dry, and intact. The exofin fusion tape is in good condition. There is minimal soft tissue swelling and ecchymosis surrounding the medial and lateral aspects of the incision. Calf is soft, no tenderness with palpation. Plantar flexion, dorsiflexion, EHL, FHL are intact. Sensory exam to light touch throughout the extremity is intact, dorsal pedis pulses 2+. - Labs CBC & Chem 7: 07/13/18 06:45 07/13/18 06:45 Labs: Abnormal Lab Results - Last 24 Hours (Table) 07/12/18 07/12/18 07/13/18 Range/Units 08:55 14:42 06:45 RBC 2.44 L 2.78 L (3.80-5.40) m/uL Hgb 7.9 L 8.7 L (11.4-16.0) gm/dL Hct 25.7 L 27.6 L (34.0-46.0) % MCV 105.6 H (80.0-100.0) fL MCHC 30.8 L (31.0-37.0) g/dL RDW 15.9 H (11.5-15.5) % Lymphocytes # 0.6 L 0.7 L (1.0-4.8) k/uL Chloride (98-107) mmol/L Carbon Dioxide (22-30) mmol/L BUN (7-17) mg/dL Creatinine (0.52-1.04) mg/dL Total Protein (6.3-8.2) g/dL Albumin (3.5-5.0) g/dL Crossmatch See Detail 07/13/18 Range/Units 06:45 RBC (3.80-5.40) m/uL Hgb (11.4-16.0) gm/dL Hct (34.0-46.0) % MCV (80.0-100.0) fL MCHC (31.0-37.0) g/dL RDW (11.5-15.5) % Lymphocytes # (1.0-4.8) k/uL Chloride 110 H (98-107) mmol/L Carbon Dioxide 20 L (22-30) mmol/L BUN 18 H (7-17) mg/dL Creatinine 1.11 H (0.52-1.04) mg/dL Total Protein 5.9 L (6.3-8.2) g/dL Albumin 3.0 L (3.5-5.0) g/dL Crossmatch Assessment and Plan Plan: Assessment: Post op day #2 status post left hip hemiarthroplasty Acute blood loss anemia, expected postsurgical outcome Plan: Pain control, continue current medication GI and DVT prophylaxis, continue Xarelto 10 mg daily Patient's hemoglobin has improved, we'll continue to monitor Continue with physical therapy daily Daily dressing changes Medical recommendations Discharge planning: Plan for discharge to rehab tomorrow Time with Patient: Less than 30
[2018-07-13] MEDS: HYDROcodone/APAP 5-325MG 1 EACH TAB PO PRN ×2 (15:11→20:19)
--- NOTE | 2018-07-13 19:55 | P.PN ---
Subjective Progress Note Date: 07/13/18 Principal diagnosis: Left hip fracture status post impacted subcapital fracture left femur, right knee swelling degenerative joint disease osteoarthritis, breast cancer, UTI, degenerative joint disease osteoarthritis, hypertension hypertensive cardiovascular disease, chronic renal failure stage II to 3X dyslipidemia, history of macular degeneration 07/13/2018, patient seen eval examined during the rounds clinically patient has been doing better, hemoglobin have been stable, patient is undergoing deep breathing sense incentive spirometry, also undergoing active physical therapy as well pain and discomfort in the knees have improved significantly labs reviewed medications reviewed care plan discussed with the patient as well as daughter present at bedside at length 07/12/2018, patient seen eval reexamined during the rounds clinically patient has been doing better in terms of breathing, respiratory status has been stable , patient has been doing deep breathing sense incentive spirometry, patient has been found to have a low hemoglobin scheduled for transfusion with 1 unit of packed RBC, labs reviewed medications reviewed 07/11/2018, patient seen eval examined during the rounds clinically has been doing well breathing comfortably patient is undergoing deep breathing exercise incentive spirometry as well him a This is a 83-year-old female patient of Dr. Reece. Patient states that she sat on a chair and felt sharp pain in her left groin and movement with her left hip. Patient denies any fall or trauma. Patient states she is unable to bear any weight on the left side. Patient does report she's had right hip replacement with Dr. Becerra proximally 4 years ago. Patient medical history includes breast cancer in which she's taking anastrozoler, hyperlipidemia, hypertension, heart murmur in which she says she follows with her primary care doctor and has undergone a 2-D echo prior and osteoarthritis. Patient denies any cardiac history including heart irregular heart rhythms, CHF or chest pain. Patient denies any history of diabetes mellitus or COPD. X-ray completed in ER showing acute impacted septic Total fracture left femur. Patient also complaining of right knee pain in which he received injection. Right knee x- ray completed showing osteoarthritis in the lateral joint space. Changes in the lateral femoral condylar probably related to chronic avascular necrosis. Osteoblastic metastatic disease is not excluded excluded no acute fractures. Chest x-ray showing subsegmental atelectasis in the left lower lung field. No heart failure. There is overall improved aeration of lungs compared to last exam. EKG completed showing sinus tachycardia with a heart rate of 105 otherwise normal EKG. Patient's heart rate has improved to the 90s. This time patient denies chest pain or shortness breath. Patient denies nausea vomiting or diarrhea. Patient denies any urinary burning or frequency. Objective - Vital Signs Vital signs: Vital Signs Temp 98 F 07/13/18 15:31 Pulse 76 07/13/18 16:00 Resp 16 07/13/18 16:00 BP 114/79 07/13/18 15:31 Pulse Ox 93 L 07/13/18 15:31 Intake & Output 07/13/18 07/13/18 07/14/18 06:59 18:59 06:59 Intake Total 750 Balance 750 Intake: Intake, IV Titration 50 Amount cefTRIAXone 1,000 mg In 50 Sodium Chloride 0.9% 50 ml @ 100 mls/hr IVPB Q24HR [facility] Rx#:[id number] Oral 700 Other: Voiding Method Indwelling Catheter # Voids 2 # Bowel Movements 2 - Exam Head normocephalic Neck supple Lungs clear to auscultation bilaterally no wheezing or crackles Heart regular rate and rhythm S1-S2, no rub or gallop Abdomen is soft nontender nondistended positive bowel sounds no hepatosplenomegaly Extremities no edema Neuro alert and orientated to 3 - Labs CBC & Chem 7: 07/13/18 06:45 07/13/18 06:45 Labs: Abnormal Lab Results - Last 24 Hours (Table) 07/13/18 07/13/18 Range/Units 06:45 06:45 RBC 2.78 L (3.80-5.40) m/uL Hgb 8.7 L (11.4-16.0) gm/dL Hct 27.6 L (34.0-46.0) % RDW 15.9 H (11.5-15.5) % Lymphocytes # 0.7 L (1.0-4.8) k/uL Chloride 110 H (98-107) mmol/L Carbon Dioxide 20 L (22-30) mmol/L BUN 18 H (7-17) mg/dL Creatinine 1.11 H (0.52-1.04) mg/dL Total Protein 5.9 L (6.3-8.2) g/dL Albumin 3.0 L (3.5-5.0) g/dL Assessment and Plan Assessment: Acute on chronic anemia Left hip fracture/ subcapital racture left femur, Right knee effusion status post arthrocentesis History of breast cancer UTI Degenerative joint disease osteoarthritis Stage II renal failure Hypertension hypertensive cardiovascular disease Plan: Continue deep breathing sense incentive spirometry DVT prophylaxis as per orthopedics protocol Continue home medications Further recommendations pending plan of care as per clinical response of the patient follow up on the right knee fluid Time with Patient: Greater than 30
[2018-07-13] MEDS: SODIUM CHLORIDE 0.9% 1,000 ML IV SCH ×2 (20:29→20:30)
[2018-07-14] MEDS: SODIUM CHLORIDE 0.9% 1,000 ML IV SCH (00:59)
[2018-07-14] MEDS: HYDROcodone/APAP 5-325MG 1 EACH TAB PO PRN ×3 (03:23→15:40)
[2018-07-14 07:22] VITALS: BP 130/67; PULSE 86; RESP 16; TEMP 97.5
[2018-07-14 07:22] LABS: Basophils % (A) 1 %; Eosinophils # (A) 0.3 k/uL (0-0.7); Eosinophils % (A) 4 %; HCT 25.7 % (34.0-46.0); Hypochromasia Slight; Lymphocytes # (A) 0.6 k/uL (1.0-4.8); Lymphocytes % (A) 8 %; MCH 30.9 pg (25.0-35.0); MCHC 31.3 g/dL (31.0-37.0); MCV 98.6 fL (80.0-100.0); Macrocytosis Slight; Mean Platelet Volume 6.8; Monocytes # (A) 0.5 k/uL (0-1.0); Monocytes % (A) 6 %; Neutrophils # (A) 5.8 k/uL (1.3-7.7); Neutrophils % (A) 80 %; Platelet Count 279 k/uL (150-450); RDW 15.7 % (11.5-15.5); WBC 7.3 k/uL (3.8-10.6)
[2018-07-14 07:36] LABS: Albumin 2.7 g/dL (3.5-5.0); Calcium 8.7 mg/dL (8.4-10.2); Potassium 4.9 mmol/L (3.5-5.1); Total Bilirubin 0.6 mg/dL (0.2-1.3); Total Protein 5.6 g/dL (6.3-8.2)
[2018-07-14] MEDS: FERROUS SULFATE 325 MG TAB PO SCH (09:22)
[2018-07-14] MEDS: RIVAROXABAN 10 MG TAB PO SCH (09:22)
[2018-07-14] MEDS: amLODIPine 2.5 MG TAB PO SCH (09:23)
[2018-07-14] MEDS: VIT A,C & E-LUTEIN-MINERALS 1 EACH TAB PO SCH (09:23)
[2018-07-14] MEDS: LORATADINE 10 MG TAB PO SCH (09:23)
[2018-07-14] MEDS: ANASTROZOLE 1 MG TAB PO SCH (09:23)
--- NOTE | 2018-07-14 11:51 | P.PN ---
Subjective Progress Note Date: 07/14/18 Principal diagnosis: Status post left hip hemiarthroplasty Patient is seen today resting in her hospital bed. Her daughter is present at bedside. She is resting comfortably. She notes minimal discomfort involving her left hip. She denies any acute chest pain or shortness of breath. Objective - Vital Signs Vital signs: Vital Signs Temp 97.5 F L 07/14/18 07:22 Pulse 86 07/14/18 07:22 Resp 16 07/14/18 07:22 BP 130/67 07/14/18 07:22 Pulse Ox 93 L 07/14/18 07:22 Intake & Output 07/13/18 07/14/18 07/14/18 18:59 06:59 18:59 Intake Total 750 Balance 750 Intake: Intake, IV Titration 50 Amount cefTRIAXone 1,000 mg In 50 Sodium Chloride 0.9% 50 ml @ 100 mls/hr IVPB Q24HR [facility] Rx#:[id number] Oral 700 Other: Voiding Method Indwelling Catheter # Voids 2 - Exam Left lower extremity: Incision is clean, dry, and intact. The exofin fusion tape is in good condition. There is minimal soft tissue swelling and ecchymosis surrounding the medial and lateral aspects of the incision. Calf is soft, no tenderness with palpation. Plantar flexion, dorsiflexion, EHL, FHL are intact. Sensory exam to light touch throughout the extremity is intact, dorsal pedis pulses 2+. - Labs CBC & Chem 7: 07/14/18 06:53 07/14/18 06:53 Labs: Abnormal Lab Results - Last 24 Hours (Table) 07/14/18 07/14/18 Range/Units 06:53 06:53 RBC 2.60 L (3.80-5.40) m/uL Hgb 8.0 L (11.4-16.0) gm/dL Hct 25.7 L (34.0-46.0) % RDW 15.7 H (11.5-15.5) % Lymphocytes # 0.6 L (1.0-4.8) k/uL Sodium 135 L (137-145) mmol/L Chloride 108 H (98-107) mmol/L BUN 19 H (7-17) mg/dL Creatinine 1.08 H (0.52-1.04) mg/dL Total Protein 5.6 L (6.3-8.2) g/dL Albumin 2.7 L (3.5-5.0) g/dL Assessment and Plan Plan: Assessment: Post op day #3 status post left hip hemiarthroplasty Acute blood loss anemia, expected postsurgical outcome Plan: Pain control, plan for discharge and [place] 5 mg GI and DVT prophylaxis, continue Xarelto 10 mg daily Patient's hemoglobin has improved, plan for discharge on ferrous sulfate 325 mg twice a day Continue with physical therapy daily Daily dressing changes Medical recommendations Discharge planning: Plan for discharge to rehab today Time with Patient: Less than 30
--- NOTE | 2018-07-14 11:56 | P.DS ---
Providers Date of admission: 07/10/18 02:09 Expected date of discharge: 07/14/18 Attending physician: Ian Cabrera Consults: 07/10/18 02:15 Consult Physician Stat Consulting Provider: Oni Leyva Reason/Comments: hip fracture Do you want consulting provider notified?: Yes Primary care physician: [facility] Course: Date of admission: 07/09/2018 Date of discharge: 07/14/2018 Admission diagnosis: Impacted left subcapital femoral neck fracture Discharge diagnosis: Status post left hip hemiarthroplasty Attending physician: Dr. Cabrera Surgical procedures: Left hip hemiarthroplasty Brief history: Patient is a 83-year-old female who presented to [facility] on 07/09/2018 after injuring her left hip. Patient states that she was attempting to sit down in a chair at home she felt she shooting pain in the left hip region. She was unable to bear any weight on the leg. Upon arrival to [facility], it was determined after imaging studies she had an impacted left femoral neck fracture. Patient was admitted under orthopedic care for likely surgical intervention. Patient underwent a left hip hemiarthroplasty on 07/10/2018. Hospital course: Details of patient's surgery can be found in operative report. Patient tolerated the procedure well and was subsequently transported to orthopedic floor. Patient's orthopeidc and medical care was provided daily. Patient had daily laboratory tests performed for evaluation of overall blood counts. Patient had daily physical therapy to include strengthening range of motion as well as education with walker ambulation. Patient was treated with Xarelto for their postoperative DVT prophylaxis during their inpatient stay. Patient was noted to have a relatively uneventful postoperative course. Patient reported satisfactory pain control with oral pain medications by postoperative day 0. Patient showed satisfactory progress with physical therapy. Patient moved steadily through the program and had no difficulty meeting the goals by postoperative day 4. Given patient's otherwise satisfactory course and having met physical therapy goals, plan is to discharge patient rehab on postoperative day 4. Discharge condition/disposition: Patient will be discharged rehab in stable condition. Discharge medications: Instructions are given on resumption of patient's normal daily medications per primary care recommendation, in addition patient will be prescribed Potosi 5 mg/325 mg, Colace 100 mg, ferrous sulfate 325 mg. Discharge instructions: 1. Wound care and infection precautions, keep incision dry and covered while showering, no lotions, creams, moisturizers. No soaking, tubs, pools, hottubs. Do not scrub over the incision. 2. Weight-bear as tolerated with walker / cane until follow-up. 3. Ice and elevate when necessary. Do not exceed 20 minutes per hour with ice pack. 4. Utilize compression sleeve until seen at first follow up appointment. 5. Visiting nursing care. 6. Home physical therapy. 7. Pain meds and anticoagulants per prescription. 8. Pain medication has potential to cause constipation. Increase oral fluid and fiber intake. Contact primary care provider if you have not had a bowel movement within 48 hours after discharge 9. No anti-inflammatory medication until discussed at first post operative visit, this including Motrin, Aleve, Mobic, Diclofenac. 10. Follow up in office at 2 weeks postop with Sebastián Read PA-C 11. Follow up with your primary care doctor 7-10 days after discharge. 12. Contact [facility] with any questions, . Procedures: Left hip hemiarthroplasty Patient Condition at Discharge: Good Plan - Discharge Summary Discharge Rx Participant: No New Discharge Prescriptions: New Docusate [Colace] 100 mg PO DAILY #30 capsule Hydrocodone/Acetaminophen [Potosi 5-325] 1 - 2 each PO Q6HR PRN #56 tab PRN Reason: Pain Rivaroxaban [Xarelto] 10 mg PO DAILY #21 tab Discontinued Naproxen Sodium [Aleve] 220 mg PO Q12HR PRN PRN Reason: Pain Hydrocodone/Acetaminophen [Potosi 5-325] 1 tab PO ONCE PRN PRN Reason: Pain No Action Furosemide [Lasix] 20 mg PO MOWEFR Loratadine [Claritin] 10 mg PO BID Vit A,C & E/Lutein/Minerals [Ocuvite with Lutein Tablet] 1 tab PO BID Atorvastatin [Lipitor] 40 mg PO MOTH amLODIPine [Norvasc] 2.5 mg PO DAILY Anastrozole [Arimidex] 1 mg PO DAILY Acetaminophen [Tylenol Extra Strength] 1,000 mg PO Q6H PRN PRN Reason: Pain Discharge Medication List Furosemide [Lasix] 20 mg PO MOWEFR 11/15/13 [History] Loratadine [Claritin] 10 mg PO BID 11/15/13 [History] Vit A,C & E/Lutein/Minerals [Ocuvite with Lutein Tablet] 1 tab PO BID 11/15/13 [ History] Atorvastatin [Lipitor] 40 mg PO MOTH 11/18/16 [History] amLODIPine [Norvasc] 2.5 mg PO DAILY 11/22/16 [History] Acetaminophen [Tylenol Extra Strength] 1,000 mg PO Q6H PRN 07/09/18 [History] Anastrozole [Arimidex] 1 mg PO DAILY 07/09/18 [History] Docusate [Colace] 100 mg PO DAILY #30 capsule 07/14/18 [Rx] Hydrocodone/Acetaminophen [Potosi 5-325] 1 - 2 each PO Q6HR PRN #56 tab 07/14/18 [Rx] Rivaroxaban [Xarelto] 10 mg PO DAILY #21 tab 07/14/18 [Rx] Follow up Appointment(s)/Referral(s): Elsi Reece DO [Primary Care Provider] - 1-2 days Alek Read PAC [PHYSICIAN [employer]M [employer]IC] - 2 Weeks Patient Instructions/Handouts: Hip Fracture (ED) Activity/Diet/Wound Care/Special Instructions: Orthopedic Discharge Instructions: 1. Wound care and infection precautions, keep incision dry and covered while showering, no lotions, creams, moisturizers. No soaking, pools, hot tubs. Do not scrub over incision. 2. Weight-bear as tolerated with walker / cane until follow-up. 3. Ice and elevate when necessary. Do not exceed 20 minutes per hour with ice pack. 4. Utilize compression sleeve until seen at first follow up appointment. 5. Pain meds and anticoagulants per prescription. 6. Pain medication has potential to cause constipation. Increase oral fluid and fiber intake. Contact primary care provider if you have not had a bowel movement within 48 hours after discharge. 7. No anti-inflammatory medication until discussed at first post operative visit, this including Motrin, Aleve, Mobic, Diclofenac. 8. Follow up in office at 2 weeks postop with Sebastián Read PA-C 9. Follow up with your primary care doctor 7-10 days after discharge. 10. Contact [facility] with any questions, . Discharge Disposition: TRANSFER TO SNF/ECF
--- NOTE | 2018-07-14 16:28 | P.PN ---
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 dyslipidemia, history of macular degeneration 07/14/2018, patient seen eval reexamined during the rounds clinically patient has been doing well awake and alert she is actively undergoing physical therapy denies any respiratory distress labs reviewed medications reviewed patient is likely will be discharged later on to ECF 07/13/2018, patient seen eval examined during the rounds clinically patient has been doing better, hemoglobin have been stable, patient is undergoing deep breathing sense incentive spirometry, also undergoing active physical therapy as well pain and discomfort in the knees have improved significantly labs reviewed medications reviewed care plan discussed with the patient as well as daughter present at bedside at length 07/12/2018, patient seen eval reexamined during the rounds clinically patient has been doing better in terms of breathing, respiratory status has been stable , patient has been doing deep breathing sense incentive spirometry, patient has been found to have a low hemoglobin scheduled for transfusion with 1 unit of packed RBC, labs reviewed medications reviewed 07/11/2018, patient seen eval examined during the rounds clinically has been doing well breathing comfortably patient is undergoing deep breathing exercise incentive spirometry as well him a This is a 83-year-old female patient of Dr. Reece. Patient states that she sat on a chair and felt sharp pain in her left groin and movement with her left hip. Patient denies any fall or trauma. Patient states she is unable to bear any weight on the left side. Patient does report she's had right hip replacement with Dr. Becerra proximally 4 years ago. Patient medical history includes breast cancer in which she's taking anastrozoler, hyperlipidemia, hypertension, heart murmur in which she says she follows with her primary care doctor and has undergone a 2-D echo prior and osteoarthritis. Patient denies any cardiac history including heart irregular heart rhythms, CHF or chest pain. Patient denies any history of diabetes mellitus or COPD. X-ray completed in ER showing acute impacted septic Total fracture left femur. Patient also complaining of right knee pain in which he received injection. Right knee x- ray completed showing osteoarthritis in the lateral joint space. Changes in the lateral femoral condylar probably related to chronic avascular necrosis. Osteoblastic metastatic disease is not excluded excluded no acute fractures. Chest x-ray showing subsegmental atelectasis in the left lower lung field. No heart failure. There is overall improved aeration of lungs compared to last exam. EKG completed showing sinus tachycardia with a heart rate of 105 otherwise normal EKG. Patient's heart rate has improved to the 90s. This time patient denies chest pain or shortness breath. Patient denies nausea vomiting or diarrhea. Patient denies any urinary burning or frequency. Objective - Vital Signs Vital signs: Vital Signs Temp 97.5 F L 07/14/18 07:22 Pulse 86 07/14/18 08:00 Resp 16 07/14/18 08:00 BP 130/67 07/14/18 07:22 Pulse Ox 93 L 07/14/18 07:22 Intake & Output 07/13/18 07/14/18 07/14/18 18:59 06:59 18:59 Intake Total 750 50 Balance 750 50 Intake: Intake, IV Titration 50 50 Amount cefTRIAXone 1,000 mg In 50 50 Sodium Chloride 0.9% 50 ml @ 100 mls/hr IVPB Q24HR [facility] Rx#:[id number] Oral 700 Other: Voiding Method Indwelling Catheter Indwelling Catheter # Voids 2 - Exam Head normocephalic Neck supple Lungs clear to auscultation bilaterally no wheezing or crackles Heart regular rate and rhythm S1-S2, no rub or gallop Abdomen is soft nontender nondistended positive bowel sounds no hepatosplenomegaly Extremities no edema Neuro alert and orientated to 3 - Labs CBC & Chem 7: 07/14/18 06:53 07/14/18 06:53 Labs: Abnormal Lab Results - Last 24 Hours (Table) 07/14/18 07/14/18 Range/Units 06:53 06:53 RBC 2.60 L (3.80-5.40) m/uL Hgb 8.0 L (11.4-16.0) gm/dL Hct 25.7 L (34.0-46.0) % RDW 15.7 H (11.5-15.5) % Lymphocytes # 0.6 L (1.0-4.8) k/uL Sodium 135 L (137-145) mmol/L Chloride 108 H (98-107) mmol/L BUN 19 H (7-17) mg/dL Creatinine 1.08 H (0.52-1.04) mg/dL Total Protein 5.6 L (6.3-8.2) g/dL Albumin 2.7 L (3.5-5.0) g/dL Assessment and Plan Assessment: Acute on chronic anemia Left hip fracture/ subcapital racture left femur, Right knee effusion status post arthrocentesis History of breast cancer UTI Degenerative joint disease osteoarthritis Stage II renal failure Hypertension hypertensive cardiovascular disease Plan: Continue deep breathing sense incentive spirometry DVT prophylaxis as per orthopedics protocol Continue home medications Further recommendations pending plan of care as per clinical response of the patient follow up on the right knee fluid Agree with discharge planning Time with Patient: Greater than 30
== END 2018-07-14 16:38 | DRG 470 ==
LOC: EC 19:44 → 4SSUR 07-10 02:09
PROVIDERS: ADMIT Orthopaedic Surgery; ATTEND Orthopaedic Surgery
PROC: 3E0U33Z Introduction of Anti-inflammatory into Joints, Percutaneous Approach (ICD-10-PCS; 2018-07-10)
PROC: 3E0U3BZ Introduction of Anesthetic Agent into Joints, Percutaneous Approach (ICD-10-PCS; 2018-07-10)
PROC: 0SRS0JA Replacement of Left Hip Joint, Femoral Surface with Synthetic Substitute, Uncemented, Open Approach (ICD-10-PCS; 2018-07-10)
PROC: 0S9C3ZX Drainage of Right Knee Joint, Percutaneous Approach, Diagnostic (ICD-10-PCS; 2018-07-10)
PROC: 30233N1 Transfusion of Nonautologous Red Blood Cells into Peripheral Vein, Percutaneous Approach (ICD-10-PCS; principal; 2018-07-12)
DX: S72.012A Unspecified intracapsular fracture of left femur, initial encounter for closed fracture (principal); D62 Acute posthemorrhagic anemia; J98.11 Atelectasis; M87.9 Osteonecrosis, unspecified; N17.9 Acute kidney failure, unspecified; N39.0 Urinary tract infection, site not specified; C50.919 Malignant neoplasm of unspecified site of unspecified female breast; E78.5 Hyperlipidemia, unspecified; H35.30 Unspecified macular degeneration; I13.10 Hypertensive heart and chronic kidney disease without heart failure, with stage 1 through stage 4 chronic kidney disease, or unspecified chronic kidney disease; N18.2 Chronic kidney disease, stage 2 (mild); Z79.811 Long term (current) use of aromatase inhibitors; Z79.899 Other long term (current) drug therapy; Z82.49 Family history of ischemic heart disease and other diseases of the circulatory system; Z87.891 Personal history of nicotine dependence; Z92.21 Personal history of antineoplastic chemotherapy; Z96.641 Presence of right artificial hip joint; Z79.891 Long term (current) use of opiate analgesic; M25.461 Effusion, right knee; M17.11 Unilateral primary osteoarthritis, right knee
CPT/HCPCS: 36415; 51702; 71045; 73501; 73502; 80053; 81001; 85025; 85610; 86850; 86900; 86901; 86920; 87086; 88305; 88311; 93005; 96361; 96374; 96375; 96376; 99285

== ENCOUNTER → 2018-10-26 | Outpatient (CLI) | payer MEDICARE, BC ==
--- NOTE | 2018-10-26 14:23 | MM ---
Reason for exam: additional evaluation requested from prior study. Last mammogram was performed 1 year and 1 month ago. History: Patient is postmenopausal and has history of breast cancer at age 81. Family history of breast cancer in mother at age 70. Mastectomy of the left breast, November 22, 2016. Malignant US biopsy breast VAD LT of the left breast, November 01, 2016. Physical Findings: Nurse did not find any significant physical abnormalities on exam. MG 3D Diag Mammo W/Cad RT CC and MLO view(s) were taken of the right breast. Prior study comparison: October 06, 2017, right breast MG 3d diag mammo w/cad RT. November 01, 2016, left breast MG diagnostic mammo LT wo CAD. The breast tissue is heterogeneously dense. This may lower the sensitivity of mammography. Finding #1: There is a 5 mm mass in the central position of the right breast. Finding #2: There are typically benign calcifications in the right breast. These results were verbally communicated with the patient and result sheet given to the patient on 10/26/18. ASSESSMENT: Incomplete: need additional imaging evaluation, BI-RAD 0 RECOMMENDATION: Ultrasound of the right breast.
--- NOTE | 2018-10-26 14:26 | USB ---
Reason for exam: additional evaluation requested from abnormal screening. History: Patient is postmenopausal and has history of breast cancer at age 81. Family history of breast cancer in mother at age 70. Mastectomy of the left breast, November 22, 2016. Malignant US biopsy breast VAD LT of the left breast, November 01, 2016. US Breast Limited RT Right limited breast ultrasound including focal area of concern, retroareolar and axilla demonstrates a 1.0 x 0.3 x 0.6cm mixed lesion at the nipple and a 0.4 x 0.2 x 0.3cm lesion too small to characterize at 12 o'clock. These results were verbally communicated with the patient and result sheet given to the patient on 10/26/18. ASSESSMENT: Suspicious, BI-RAD 4 RECOMMENDATION: Ultrasound core biopsy of the right breast. (2 sites) Called Dr. Reece with mammographic findings, patient request to schedule her own consultation appointment with Dr. Mckoy. PRELIMINARY REPORT CALLED AND FAXED TO DR. MCKOY ON 10/26/18.
== END | disposition home or self-care (01) ==
LOC: RADMAMWWP 12:40
PROVIDERS: ATTEND Family Medicine
DX: R92.8 Other abnormal and inconclusive findings on diagnostic imaging of breast (principal)
CPT/HCPCS: 77065; 76642; G0279; 77061

== ENCOUNTER → 2018-11-22 | Day surgery (SDC) | payer MEDICARE, BC ==
[2018-11-22 11:35] VITALS: RESP 12
[2018-11-22 12:24] VITALS: BP 160/80; PULSE 94; TEMP 99
--- NOTE | 2018-11-22 12:54 | USB ---
EXAMINATION TYPE: US discontinued breast bx RT DATE OF EXAM: 11/22/2018 COMPARISON: 10/26/2018 HISTORY: 83-year-old female referred for ultrasound-guided core needle biopsy of the right breast. Brandyn hebert with history of left breast cancer 2 years ago status post mastectomy. TECHNIQUE: Right breast in the subareolar upper outer quadrant region as well as the 12:00 position w as scanned. FINDINGS: No solid or cystic lesion is seen. Mild duct ectasia is noted behind the nipple. The subareolar and 1 2:00 lesion seen on 10/26/2018 are no longer identified. The subareolar lesion Presented 3 duct that has cleared. 12:00 lesion could represent an involuted cyst. Biopsy is being canceled and 6 month follow-up is recommended. Findings and impression discussed with the patient at the completion of the exam. IMPRESSION: BI-RADS 3 - probably benign RECOMMENDATION: 1. Six-month follow-up diagnostic right breast mammogram. 2. Six-month follow-up precautionary right breast ultrasound. 3. Patient should continue monthly self breast exam. 4. This exam should not preclude additional follow-up of suspicious palpable abnormalities.
== END ==
LOC: RADUSWWP 10:57
PROVIDERS: ATTEND Surgery
DX: R92.8 Other abnormal and inconclusive findings on diagnostic imaging of breast (principal); Z53.8 Procedure and treatment not carried out for other reasons; Z85.3 Personal history of malignant neoplasm of breast; Z90.12 Acquired absence of left breast and nipple

== ENCOUNTER → 2019-05-28 | Outpatient (CLI) | payer MEDICARE, BC ==
--- NOTE | 2019-05-28 13:28 | MM ---
Reason for exam: follow-up at short interval from prior study. Last mammogram was performed 7 months ago. History: Patient is postmenopausal and has history of breast cancer at age 81. Family history of breast cancer in mother at age 70. US discontinued breast bx RT of the right breast, November 22, 2018. Mastectomy of the left breast, November 22, 2016. Malignant US biopsy breast VAD LT of the left breast, November 01, 2016. Physical Findings: Nurse did not find any significant physical abnormalities on exam. MG 3D Diag Mammo W/Cad RT CC, MLO, and ML view(s) were taken of the right breast. Prior study comparison: October 26, 2018, right breast MG 3d diag mammo w/cad RT. October 06, 2017, right breast MG 3d diag mammo w/cad RT. There are scattered fibroglandular densities. No suspicious abnormality. Central upper right middle depth focal asymmetry is less pronounced than on the prior. These results were verbally communicated with the patient and result sheet given to the patient on 05/28/19. ASSESSMENT: Benign, BI-RAD 2 RECOMMENDATION: Routine screening mammogram of the right breast in 4 months. Back on schedule for September 2019.
--- NOTE | 2019-05-28 13:30 | USB ---
Reason for exam: follow-up at short interval from prior study. History: Patient is postmenopausal and has history of breast cancer at age 81. Family history of breast cancer in mother at age 70. US discontinued breast bx RT of the right breast, November 22, 2018. Mastectomy of the left breast, November 22, 2016. Malignant US biopsy breast VAD LT of the left breast, November 01, 2016. US Breast Limited RT Right limited breast ultrasound including focal area of concern, retroareolar and axilla demonstrates a 1.2 x 1.7 x 1.0cm oval axillary node. Similar dense tissue to the prior. No suspicious focal mass. These results were verbally communicated with the patient and result sheet given to the patient on 05/28/19. ASSESSMENT: Negative, BI-RAD 1 RECOMMENDATION: Routine screening mammogram of the right breast in 4 months. Back on schedule for September 2019.
== END | disposition home or self-care (01) ==
LOC: RADMAMWWP 10:31
PROVIDERS: ATTEND Surgery
DX: R92.8 Other abnormal and inconclusive findings on diagnostic imaging of breast (principal)
CPT/HCPCS: 77065; 76642; G0279; 77061

== ENCOUNTER 2019-07-11 19:18 | Inpatient (IN) | payer MEDICARE, BC ==
[2019-07-11] MEDS ORDERED: SODIUM CHLORIDE 0.9% 500 ML 500 ML IV ONE (19:35)
--- NOTE | 2019-07-11 19:36 | ED ---
General Adult HPI - General Chief complaint: Syncope Stated complaint: Syncope Time Seen by Provider: 07/11/19 19:29 Source: patient, family, EMS Mode of arrival: EMS Limitations: no limitations - History of Present Illness Initial comments: Patient presents to the ED by ambulance for evaluation with her and daughter at bedside. Per daughter, the patient was complaining of feeling "warm" while sitting at a table and playing a game this evening, and she then had a syncopal episode. Daughter states that the patient was "out of it" for about 5-6 minutes. Patient states that she just recalls feeling warm and lightheaded prior to her syncopal episode this evening, and she denies having any other associated symptoms. Patient states that she feels fine and back to normal currently. Patient denies having any symptoms whatsoever currently. Patient denies having any pain, trauma or injury, fever or chills, headache, focal numbness/weakness/neuro deficit, visual changes, chest pain, dyspnea, palpitations, abdominal pain, nausea/vomiting/diarrhea, bloody or melanotic stool, dysuria or urinary symptoms, or any other symptoms or complaints. - Related Data Home Medications Medication Instructions Recorded Confirmed Furosemide [Lasix] 20 mg PO MOWEFR 11/15/13 11/22/18 Loratadine [Claritin] 10 mg PO BID 11/15/13 11/22/18 Vit A,C & E/Lutein/Minerals 1 tab PO BID 11/15/13 11/22/18 [Ocuvite with Lutein Tablet] Atorvastatin [Lipitor] 40 mg PO MOTH 11/18/16 11/22/18 Acetaminophen [Tylenol Extra 1,000 mg PO Q6H PRN 07/09/18 11/22/18 Strength] Anastrozole [Arimidex] 1 mg PO DAILY 11/21/18 11/22/18 Gabapentin [Neurontin] 1 tab PO DAILY 11/21/18 11/22/18 amLODIPine [Norvasc] 1 tab PO DAILY 11/21/18 11/22/18 Allergies Allergy/AdvReac Type Severity Reaction Status Date / Time No Known Allergies Allergy Verified 07/11/19 19:27 Review of Systems ROS Statement: Those systems with pertinent positive or pertinent negative responses have been documented in the HPI. ROS Other: All systems not noted in ROS Statement are negative. Past Medical History Past Medical History: Cancer, Eye Disorder, Hyperlipidemia, Hypertension, Osteoarthritis (OA) Additional Past Medical History / Comment(s): Macular degeneration, heart murmer, hx past kidney problems due to motrin use, breast cancer History of Any Multi-Drug Resistant Organisms: None Reported Past Surgical History: Breast Surgery, Joint Replacement Additional Past Surgical History / Comment(s): rt hip replacement, lt hip replacement, breast biopsy, kirit cataracts, Past Anesthesia/Blood Transfusion Reactions: No Reported Reaction Past Psychological History: No Psychological Hx Reported Smoking Status: Former smoker Past Alcohol Use History: Occasional Past Drug Use History: None Reported - Past Family History Mother Family Medical History: Cancer Father Family Medical History: CVA/TIA, Myocardial Infarction ([place]) General Exam Limitations: no limitations General appearance: alert, in no apparent distress Head exam: Present: atraumatic, normocephalic Eye exam: Present: normal appearance, PERRL, EOMI ENT exam: Present: mucous membranes moist Neck exam: Present: other (Trachea is in midline) Respiratory exam: Present: normal lung sounds bilaterally. Absent: respiratory distress, wheezes, rales, rhonchi Cardiovascular Exam: Present: regular rate, normal rhythm, systolic murmur, other (Normal radial pulses bilaterally) GI/Abdominal exam: Present: soft. Absent: distended, tenderness, guarding Extremities exam: Present: full ROM. Absent: tenderness, pedal edema, calf tenderness Neurological exam: Present: alert, oriented X3, CN II-XII intact. Absent: motor sensory deficit Psychiatric exam: Present: normal affect, normal mood Skin exam: Present: warm, dry, intact, normal color Course Vital Signs 07/11/19 19:22 Temperature 98.3 F Pulse Rate 96 Respiratory 20 Rate Blood Pressure 158/81 O2 Sat by Pulse 97 Oximetry - Reevaluation(s) Reevaluation #1: 07/11/19 20:47 Patient continues to deny having any symptoms while in the ED, but when asked about if she has had a cough, patient admits that she has had a cough and congestion recently. Patient remains alert and breathing comfortably with a normal room air oxygen saturation. Patient remains in normal sinus rhythm on the cardiac catheterization technician. Patient and family are aware of the patient's test results, and they all agree with hospital admission at this time. 07/11/19 20:51 Case, H&P, test results and ED management were discussed with Dr. Reece. He a ccepts hospital admission. He has no further recommendations at this time. EKG Findings - EKG Comments: EKG Findings:: Normal sinus rhythm, ventricular rate of 97 bpm, no ectopy, normal [place] and QRS intervals, normal QT interval, normal axis, no ST or T-wave abnormality Medical Decision Making - Medical Decision Making Will admit the patient to the hospital for cardiac monitoring given her age and syncopal episode this evening. Will also admit for IV antibiotic treatment for suspected community-acquired pneumonia. Patient has been asymptomatic and stable while in the ED, with reassuring vital signs. Patient and family agree with hospital admission, Dr. Reece has accepted hospital admission. - Lab Data Result diagrams: 07/11/19 19:07/11/19 19: Lab Results 07/11/19 07/11/19 07/11/19 Range/Units 19:26 19:26 19: WBC 5.5 (3.8-10.6) k/uL RBC 3.56 L (3.80-5.40) m/uL Hgb 12.1 (11.4-16.0) gm/dL Hct 35.2 (34.0-46.0) % MCV 99.1 (80.0-100.0) fL MCH 34.0 (25.0-35.0) pg MCHC 34.3 (31.0-37.0) g/dL RDW 13.5 (11.5-15.5) % Plt Count 230 (150-450) k/uL Neutrophils % 80 % Lymphocytes % 8 % Monocytes % 7 % Eosinophils % 3 % Basophils % 1 % Neutrophils # 4.4 (1.3-7.7) k/uL Lymphocytes # 0.4 L (1.0-4.8) k/uL Monocytes # 0.4 (0-1.0) k/uL Eosinophils # 0.1 (0-0.7) k/uL Basophils # 0.0 (0-0.2) k/uL PT (9.0-12.0) sec INR (<1.2) APTT (22.0-30.0) sec Sodium 135 L (137-145) mmol/L Potassium 3.7 (3.5-5.1) mmol/L Chloride 104 (98-107) mmol/L Carbon Dioxide 19 L (22-30) mmol/L Anion Gap 12 mmol/L BUN 21 H (7-17) mg/dL Creatinine 1.24 H (0.52-1.04) mg/dL Est GFR (CKD-EPI)AfAm 46 (>60 ml/min/1.73 sqM) Est GFR (CKD-EPI)NonAf 40 (>60 ml/min/1.73 sqM) Glucose 124 H (74-99) mg/dL Calcium 9.1 (8.4-10.2) mg/dL Magnesium 2.0 (1.6-2.3) mg/dL Total Bilirubin 0.7 (0.2-1.3) mg/dL AST 26 (14-36) U/L ALT 18 (4-34) U/L Alkaline Phosphatase 124 (38-126) U/L Troponin I (0.000-0.034) ng/mL NT-Pro-B Natriuret Pep 2070 pg/mL Total Protein 7.1 (6.3-8.2) g/dL Albumin 4.1 (3.5-5.0) g/dL 07/11/19 07/11/19 Range/Units 19:26 19:26 WBC (3.8-10.6) k/uL RBC (3.80-5.40) m/uL Hgb (11.4-16.0) gm/dL Hct (34.0-46.0) % MCV (80.0-100.0) fL MCH (25.0-35.0) pg MCHC (31.0-37.0) g/dL RDW (11.5-15.5) % Plt Count (150-450) k/uL Neutrophils % % Lymphocytes % % Monocytes % % Eosinophils % % Basophils % % Neutrophils # (1.3-7.7) k/uL Lymphocytes # (1.0-4.8) k/uL Monocytes # (0-1.0) k/uL Eosinophils # (0-0.7) k/uL Basophils # (0-0.2) k/uL PT 9.9 (9.0-12.0) sec INR 0.9 (<1.2) APTT 24.4 (22.0-30.0) sec Sodium (137-145) mmol/L Potassium (3.5-5.1) mmol/L Chloride (98-107) mmol/L Carbon Dioxide (22-30) mmol/L Anion Gap mmol/L BUN (7-17) mg/dL Creatinine (0.52-1.04) mg/dL Est GFR (CKD-EPI)AfAm (>60 ml/min/1.73 sqM) Est GFR (CKD-EPI)NonAf (>60 ml/min/1.73 sqM) Glucose (74-99) mg/dL Calcium (8.4-10.2) mg/dL Magnesium (1.6-2.3) mg/dL Total Bilirubin (0.2-1.3) mg/dL AST (14-36) U/L ALT (4-34) U/L Alkaline Phosphatase (38-126) U/L Troponin I 0.012 (0.000-0.034) ng/mL NT-Pro-B Natriuret Pep pg/mL Total Protein (6.3-8.2) g/dL Albumin (3.5-5.0) g/dL - Radiology Data Radiology results: report reviewed (Noncontrast CT head shows no acute i ntracranial abnormality), image reviewed (Chest x-ray shows right basilar opacity) Disposition Clinical Impression: Syncope, Pneumonia Disposition: ADMITTED IP TO THIS [facility] Condition: Stable Is patient prescribed a controlled substance at d/c from ED?: No Referrals: Elsi Reece DO [Primary Care Provider] - 1-2 days Time of Disposition: 20:51
[2019-07-11 19:44] LABS: Basophils % (A) 1 %; Eosinophils # (A) 0.1 k/uL (0-0.7); Eosinophils % (A) 3 %; HCT 35.2 % (34.0-46.0); HGB 12.1 gm/dL (11.4-16.0); Lymphocytes # (A) 0.4 k/uL (1.0-4.8); Lymphocytes % (A) 8 %; MCHC 34.3 g/dL (31.0-37.0); MCV 99.1 fL (80.0-100.0); Mean Platelet Volume 6.9; Monocytes # (A) 0.4 k/uL (0-1.0); Monocytes % (A) 7 %; Neutrophils # (A) 4.4 k/uL (1.3-7.7); Neutrophils % (A) 80 %; Platelet Count 230 k/uL (150-450); RBC 3.56 m/uL (3.80-5.40); RDW 13.5 % (11.5-15.5); WBC 5.5 k/uL (3.8-10.6)
[2019-07-11 19:56] LABS: Albumin 4.1 g/dL (3.5-5.0); Calcium 9.1 mg/dL (8.4-10.2); Potassium 3.7 mmol/L (3.5-5.1); Total Bilirubin 0.7 mg/dL (0.2-1.3); Total Protein 7.1 g/dL (6.3-8.2)
--- NOTE | 2019-07-11 19:56 | CT ---
EXAMINATION TYPE: CT brain wo con DATE OF EXAM: 07/11/2019 COMPARISON: None HISTORY: Syncope. CT DLP: 1023.4 mGycm Automated exposure control for dose reduction was used. There is diffuse cerebral atrophy. There is no mass effect nor midline shift. There is no sign of int racranial hemorrhage. 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 Calvarium is intact. IMPRESSION: Cerebral atrophy and chronic small vessel ischemia. No acute intracranial abnormality.
[2019-07-11 19:57] LABS: INR 0.9 (<1.2); Partial Thromboplastin Time 24.4 sec (22.0-30.0); Prothrombin Time 9.9 sec (9.0-12.0)
--- NOTE | 2019-07-11 20:03 | XR ---
EXAMINATION TYPE: XR chest 2V DATE OF EXAM: 07/11/2019 COMPARISON: 07/09/2018 HISTORY: Syncope TECHNIQUE: 2 views FINDINGS: There is a patchy infiltrate in the anterior right middle lobe. The other lung hong are c lear. There is no heart failure. There are chest leads. Costophrenic angles are clear. Bony thorax sh ows spurring in the thoracic spine. IMPRESSION: There is a right middle lobe pneumonia and atelectasis at the cardiophrenic angle that is new compared to old exam. No heart failure.
[2019-07-11] MEDS ORDERED: AZITHROMYCIN 500 MG in SODIUM CHLORIDE 0.9% 250 ML IVPB ONE (21:00)
[2019-07-11] MEDS: HYDROcodone/APAP 5-325MG 1 EACH TAB PO PRN (23:21)
[2019-07-12] MEDS ORDERED: AZITHROMYCIN 500 MG in SODIUM CHLORIDE 0.9% 250 ML IVPB ONE ×2
[2019-07-12 09:29] LABS: Basophils # (A) 0.1 k/uL (0-0.2); Basophils % (A) 1 %; Eosinophils # (A) 0.2 k/uL (0-0.7); Eosinophils % (A) 3 %; HCT 33.7 % (34.0-46.0); HGB 10.9 gm/dL (11.4-16.0); Lymphocytes # (A) 0.4 k/uL (1.0-4.8); Lymphocytes % (A) 8 %; MCHC 32.4 g/dL (31.0-37.0); Macrocytosis Slight; Mean Platelet Volume 7.4; Monocytes # (A) 0.4 k/uL (0-1.0); Monocytes % (A) 8 %; Neutrophils # (A) 3.7 k/uL (1.3-7.7); Neutrophils % (A) 77 %; Platelet Count 223 k/uL (150-450); RBC 3.21 m/uL (3.80-5.40); RDW 13.4 % (11.5-15.5); WBC 4.8 k/uL (3.8-10.6)
[2019-07-12 09:31] LABS: MCV 105.1 fL (80.0-100.0)
[2019-07-12 09:34] LABS: Albumin 3.8 g/dL (3.5-5.0); Calcium 8.9 mg/dL (8.4-10.2); Potassium 4.1 mmol/L (3.5-5.1); Total Bilirubin 0.7 mg/dL (0.2-1.3); Total Protein 6.6 g/dL (6.3-8.2)
[2019-07-12] MEDS: HYDROcodone/APAP 5-325MG 1 EACH TAB PO PRN ×2 (09:39→21:24)
[2019-07-12] MEDS: ATORVASTATIN 40 MG TAB PO SCH (09:40)
[2019-07-12] MEDS: GABAPENTIN 300 MG CAP PO SCH (09:40)
[2019-07-12] MEDS: amLODIPine 2.5 MG TAB PO SCH (09:42)
[2019-07-12] MEDS: LORATADINE 10 MG TAB PO SCH (11:07)
[2019-07-12] MEDS: AZITHROMYCIN 500 MG in SODIUM CHLORIDE 0.9% 250 ML IVPB SCH (16:31)
[2019-07-12] MEDS: ACETAMINOPHEN TAB 325 MG TAB PO PRN (18:14)
--- NOTE | 2019-07-12 22:20 | P.HPIM ---
History of Present Illness H&P Date: 07/12/19 Chief Complaint: syncope Estelita Vogel is an 84 yo F with PMH of OA, HTN, HLD, hx breast cancer who presented to the ED via EMS after a syncopal event at home. Pt states she was at the dinner table when she started to feel warm and lightheaded. Family notes that she became unsteady and was not responsive so daughters laid pt down and called EMS. Family denies any other symptoms. Pt states next remembered paramedics standing over her. Pt denies any chest pain, palpitations, fevers or chills but notes she has experienced a nonproductive cough for the past 2 weeks. In the ED vitals were stable, WBC 5.2, Cr 1.3 from baseline 0.9, CT head negative, CXR with RML pneumonia. Review of Systems All systems: negative Constitutional: Reports lethargy, Reports malaise, Denies chills, Denies fever Eyes: denies blurred vision, denies pain Ears, nose, mouth and throat: Denies headache, Denies sore throat Cardiovascular: Denies chest pain, Denies shortness of breath Respiratory: Reports as per HPI, Reports congestion, Reports cough Gastrointestinal: Denies abdominal pain, Denies diarrhea, Denies nausea, Denies vomiting Genitourinary: Denies dysuria, Denies hematuria Musculoskeletal: Denies myalgias Integumentary: Denies pruritus, Denies rash Neurological: Denies numbness, Denies weakness Psychiatric: Denies anxiety, Denies depression Endocrine: Denies fatigue, Denies weight change Past Medical History Past Medical History: Cancer, Eye Disorder, Hyperlipidemia, Hypertension, Osteoarthritis (OA) Additional Past Medical History / Comment(s): Macular degeneration, heart murmer, hx past kidney problems due to motrin use, breast cancer History of Any Multi-Drug Resistant Organisms: None Reported Past Surgical History: Breast Surgery, Joint Replacement Additional Past Surgical History / Comment(s): rt hip replacement, lt hip replacement, breast biopsy, kirit cataracts, Past Anesthesia/Blood Transfusion Reactions: No Reported Reaction Past Psychological History: No Psychological Hx Reported Smoking Status: Former smoker Past Alcohol Use History: Occasional Additional Past Alcohol Use History / Comment(s): quit smoking 10 yrs ago, smoked for about 30 yrs, <1PPD Past Drug Use History: None Reported - Past Family History Mother Family Medical History: Cancer Father Family Medical History: CVA/TIA, Myocardial Infarction ([place]) Medications and Allergies Home Medications Medication Instructions Recorded Confirmed Type Furosemide [Lasix] 20 mg PO Q48H 11/15/13 07/11/19 History Loratadine [Claritin] 10 mg PO DAILY 11/15/13 07/11/19 History Atorvastatin [Lipitor] 40 mg PO MOTH 11/18/16 07/11/19 History Anastrozole [Arimidex] 1 mg PO DAILY 11/21/18 07/11/19 History Allopurinol [Zyloprim] 150 mg PO DAILY 07/11/19 07/11/19 History Black Rousseau(Unknown Dose) 1 tab PO BID 07/11/19 07/11/19 History Calcium/Vitamin D3(Unknown Dose) 1 tab PO BID 07/11/19 07/11/19 History Cinnamon(Unknown Dose) 1 tab PO BID 07/11/19 07/11/19 History Co Q-10(Unknown Dose) 1 tab PO DAILY 07/11/19 07/11/19 History Colchicine 0.6 mg PO DAILY PRN 07/11/19 07/11/19 History Echinacea(Unknown Dose) 1 tab PO DAILY 07/11/19 07/11/19 History Famotidine [Pepcid AC] 10 mg PO DAILY PRN 07/11/19 07/11/19 History Turmeric(Unknown Dose) 1 tab PO DAILY 07/11/19 07/11/19 History Vit C/E/Zn/Coppr/Lutein/Zeaxan 1 cap PO BID 07/11/19 07/11/19 History [Preservision Areds 2 Softgel] Vitamin B Complex 1 cap PO DAILY 07/11/19 07/11/19 History Allergies Allergy/AdvReac Type Severity Reaction Status Date / Time No Known Allergies Allergy Verified 07/11/19 21:59 Physical Exam Vitals: Vital Signs Temp Pulse Resp BP Pulse Ox 07/12/19 21:07 98.4 F 07/12/19 20:24 100.7 F H 109 H 16 118/62 95 07/12/19 16:52 99.7 F H 95 16 145/66 97 07/12/19 09:43 97 131/68 07/12/19 07:38 95 07/12/19 05:36 97.8 F 83 18 108/58 95 07/11/19 23:00 98.6 F 96 16 141/74 94 L Intake and Output 07/12/19 07/12/19 07/12/19 06:59 14:59 22:59 Intake Total 350 Balance 350 Intake: Intake, IV Titration 350 Amount Azithromycin 500 mg In 250 Sodium Chloride 0.9% 250 ml @ 250 mls/hr IVPB DAILY GRABIEL Rx#:[id number] cefTRIAXone 1 gm In 100 Sodium Chloride 0.9% 50 ml @ 100 mls/hr IVPB Q24HR GRABIEL Rx#:[id number] Other: Voiding Method Toilet Toilet # Voids 1 General: well nourished, well developed, NAD. Vitals reviewed Eyes: PERRL, EOMI, conjunctiva normal HENT: normocephalic, mucus membranes moist Neck: supple, no JVD Lungs: normal respiratory effort, no wheezes or rales CV: Regular rate and rhythm, no murmur. Peripheral pulses 2+ Abdomen: soft, nondistended, no organomegaly Lymph: no cervical or axillary LAD Skin: warm and dry. Neuro: A&Ox3, normal mood and affect Results CBC & Chem 7: 07/12/19 08:18 07/12/19 08:18 Labs: Abnormal Lab Results - Last 24 Hours (Table) 07/12/19 07/12/19 07/12/19 Range/Units 08:18 08:18 08:18 RBC 3.21 L (3.80-5.40) m/uL Hgb 10.9 L (11.4-16.0) gm/dL Hct 33.7 L (34.0-46.0) % MCV 105.1 H D (80.0-100.0) fL Lymphocytes # 0.4 L (1.0-4.8) k/uL Creatinine 1.12 H (0.52-1.04) mg/dL Procalcitonin 0.28 H (0.02-0.09) ng/mL Thrombosis Risk Factor Assmnt - Choose All That Apply Any of the Below Risk Factors Present?: Yes Each Risk Factor Represents 3 Points: Age 75 years or older Thrombosis Risk Factor Assessment Total Risk Factor Score: 3 Thrombosis Risk Factor Assessment Level: Moderate Risk Assessment and Plan (1) Community acquired pneumonia Current Visit: Yes Status: Acute Code(s): J18.9 - PNEUMONIA, UNSPECIFIED ORGANISM SNOMED Code(s): 210371123 (2) Hyperlipemia Current Visit: No Status: Chronic Code(s): E78.5 - HYPERLIPIDEMIA, UNSPECIFIED SNOMED Code(s): 40621067 (3) Osteoarthritis Current Visit: No Status: Chronic Code(s): M19.90 - UNSPECIFIED OSTEOARTHRITIS, UNSPECIFIED SITE SNOMED Code(s): 923430202 (4) RML pneumonia Current Visit: Yes Status: Acute Code(s): J18.9 - PNEUMONIA, UNSPECIFIED ORGANISM SNOMED Code(s): 261820659 (5) HTN (hypertension) Current Visit: No Status: Chronic Code(s): I10 - ESSENTIAL (PRIMARY) HYPER TENSION SNOMED Code(s): 03391841 Plan: 1. Community Acquired Pneumonia. Procalcitonin elevated and CXR with RML infiltrate. Ceftriaxone and azithromycin 2. Syncopal event. CT head negative and EKG with NSR. Suspect dehydration secondary to RML pneumonia 3. DEB. Resolved after IVF hydration 4. Hx breast cancer 5. HLD 6. HTN 7. OA
[2019-07-13] MEDS: HYDROcodone/APAP 5-325MG 1 EACH TAB PO PRN ×4 (03:51→22:29)
[2019-07-13] MEDS: amLODIPine 2.5 MG TAB PO SCH (08:51)
[2019-07-13] MEDS: ANASTROZOLE 1 MG TAB PO SCH (08:51)
[2019-07-13] MEDS: LORATADINE 10 MG TAB PO SCH (08:52)
[2019-07-13] MEDS: GABAPENTIN 300 MG CAP PO SCH (08:52)
[2019-07-13] MEDS: ATORVASTATIN 40 MG TAB PO SCH (08:52)
[2019-07-13] MEDS ORDERED: PNEUMOCOCCAL VACC-PNEUMOVAX 23 25 MCG/0.5 ML VIAL IM ONE (09:00)
[2019-07-13] MEDS: AZITHROMYCIN 500 MG in SODIUM CHLORIDE 0.9% 250 ML IVPB SCH (09:55)
[2019-07-13] MEDS: SENNOSIDES-DOCUSATE SODIUM 1 EACH TAB PO SCH (12:13)
[2019-07-13] MEDS: IPRATROPIUM-ALBUTEROL 3 ML NEB INHALATION SCH ×2 (16:35→21:42)
[2019-07-13] MEDS ORDERED: METOPROLOL SUCCINATE (ER) 50 MG TAB.ER.24H PO STA (18:07)
[2019-07-13] MEDS: ACETAMINOPHEN TAB 325 MG TAB PO PRN (19:32)
[2019-07-13] MEDS ORDERED: DILTIAZEM DRIP BOLUS FROM BAG 1 MG SOLN IV STA (19:56)
[2019-07-13] MEDS ORDERED: HEPARIN SOD,PORK IN 0.45% NACL 25,000 UNIT in 0.45% NACL 1 250ML.BAG IV SCH (20:00)
[2019-07-13] MEDS ORDERED: HEPARIN SODIUM,PORCINE 5,000 UNIT/ML 1 ML VIAL IV PRN (20:00)
[2019-07-13] MEDS ORDERED: DILTIAZEM 125 MG in SODIUM CHLORIDE 0.9% 100 ML IV SCH (20:00)
[2019-07-13 20:50] LABS: Basophils % (A) 0 %; Eosinophils # (A) 0.2 k/uL (0-0.7); Eosinophils % (A) 3 %; HCT 30.9 % (34.0-46.0); HGB 10.5 gm/dL (11.4-16.0); Lymphocytes # (A) 0.4 k/uL (1.0-4.8); Lymphocytes % (A) 7 %; MCHC 33.8 g/dL (31.0-37.0); MCV 100.6 fL (80.0-100.0); Macrocytosis Slight; Mean Platelet Volume 7.6; Monocytes # (A) 0.4 k/uL (0-1.0); Monocytes % (A) 6 %; Neutrophils # (A) 4.9 k/uL (1.3-7.7); Neutrophils % (A) 80 %; Platelet Count 218 k/uL (150-450); RBC 3.08 m/uL (3.80-5.40); RDW 13.9 % (11.5-15.5); WBC 6.1 k/uL (3.8-10.6)
[2019-07-13 20:59] LABS: INR 0.9 (<1.2); Partial Thromboplastin Time 28.9 sec (22.0-30.0); Prothrombin Time 10.2 sec (9.0-12.0)
[2019-07-13] MEDS: guaiFENesin 600 MG TABLET.ER PO SCH (21:44)
--- NOTE | 2019-07-13 22:57 | P.PN ---
Subjective Progress Note Date: 07/13/19 Estelita Vogel is an 84 yo F with PMH of OA, HTN, HLD, hx breast cancer who presented to the ED via EMS after a syncopal event at home. Pt states she was at the dinner table when she started to feel warm and lightheaded. Family notes that she became unsteady and was not responsive so daughters laid pt down and called EMS. Family denies any other symptoms. Pt states next remembered paramedics standing over her. Pt denies any chest pain, palpitations, fevers or chills but notes she has experienced a nonproductive cough for the past 2 weeks. In the ED vitals were stable, WBC 5.2, Cr 1.3 from baseline 0.9, CT head negative, CXR with RML pneumonia. 07/13. She is feeling better today, more energy today. Her HR has been ranging in the high 120-140s today. Objective - Vital Signs Vital signs: Vital Signs Temp 100.3 F H 07/13/19 19:29 Pulse 121 H 07/13/19 21:52 Resp 18 07/13/19 19:29 BP 127/81 07/13/19 19:29 Pulse Ox 98 07/13/19 19:29 Intake & Output 07/13/19 07/13/19 07/14/19 06:59 18:59 06:59 Intake Total 1200 140 Balance 1200 140 Intake: Oral 1200 140 Other: Voiding Method Toilet Toilet # Voids 1 1 - Exam General: well nourished, well developed, NAD. Vitals reviewed Lungs: normal respiratory effort, no wheezes or rales CV: Regular rate and rhythm, no murmur. Peripheral pulses 2+ Abdomen: soft, nondistended, no organomegaly Skin: warm and dry. - Labs CBC & Chem 7: 07/13/19 20:35 07/12/19 08:18 Labs: Abnormal Lab Results - Last 24 Hours (Table) 07/13/19 Range/Units 20:35 RBC 3.08 L (3.80-5.40) m/uL Hgb 10.5 L (11.4-16.0) gm/dL Hct 30.9 L (34.0-46.0) % MCV 100.6 H (80.0-100.0) fL Lymphocytes # 0.4 L (1.0-4.8) k/uL Microbiology - Last 24 Hours (Table) 07/11/19 21:20 Blood Culture - Preliminary Blood No Growth after 24 hours Assessment and Plan (1) Community acquired pneumonia Current Visit: Yes Status: Acute Code(s): J18.9 - PNEUMONIA, UNSPECIFIED ORGANISM SNOMED Code(s): 511411325 (2) Hyperlipemia Current Visit: No Status: Chronic Code(s): E78.5 - HYPERLIPIDEMIA, UNSPECIFIED SNOMED Code(s): 01805256 (3) Osteoarthritis Current Visit: No Status: Chronic Code(s): M19.90 - UNSPECIFIED OSTEOARTHRITIS, UNSPECIFIED SITE SNOMED Code(s): 499360341 (4) RML pneumonia Current Visit: Yes Status: Acute Code(s): J18.9 - PNEUMONIA, UNSPECIFIED ORGANISM SNOMED Code(s): 950504679 (5) HTN (hypertension) Current Visit: No Status: Chronic Code(s): I10 - ESSENTIAL (PRIMARY) HYPERTENSION SNOMED Code(s): 88565695 Plan: 1. Community Acquired Pneumonia. Ceftriaxone and azithromycin 2. Syncopal event. Tachycardia. Cardiology consult and will start metoprolol 50 mg 3. DEB. Resolved after IVF hydration 4. Hx breast cancer 5. HLD 6. HTN 7. OA
[2019-07-14] MEDS: IPRATROPIUM-ALBUTEROL 3 ML NEB INHALATION SCH ×6 (01:59→22:00)
[2019-07-14] MEDS: HYDROcodone/APAP 5-325MG 1 EACH TAB PO PRN ×3 (05:50→19:42)
[2019-07-14 06:18] LABS: Basophils % (A) 1 %; Eosinophils # (A) 0.2 k/uL (0-0.7); Eosinophils % (A) 3 %; HCT 28.3 % (34.0-46.0); HGB 9.2 gm/dL (11.4-16.0); Lymphocytes # (A) 0.5 k/uL (1.0-4.8); Lymphocytes % (A) 9 %; MCH 33.7 pg (25.0-35.0); MCHC 32.4 g/dL (31.0-37.0); MCV 104.2 fL (80.0-100.0); Macrocytosis Slight; Mean Platelet Volume 7.3; Monocytes # (A) 0.3 k/uL (0-1.0); Monocytes % (A) 5 %; Neutrophils # (A) 4.2 k/uL (1.3-7.7); Neutrophils % (A) 79 %; Platelet Count 201 k/uL (150-450); RBC 2.71 m/uL (3.80-5.40); RDW 13.9 % (11.5-15.5); WBC 5.3 k/uL (3.8-10.6)
[2019-07-14] MEDS ORDERED: CEFDINIR 300 MG CAP PO SCH (09:00)
[2019-07-14] MEDS: APIXABAN 2.5 MG TABLET PO SCH ×2 (09:57→19:42)
[2019-07-14] MEDS: METOPROLOL TARTRATE 25 MG TAB PO SCH ×3 (09:57→19:46)
[2019-07-14] MEDS: SENNOSIDES-DOCUSATE SODIUM 1 EACH TAB PO SCH (09:58)
[2019-07-14] MEDS: ANASTROZOLE 1 MG TAB PO SCH (09:58)
[2019-07-14] MEDS: AZITHROMYCIN 500 MG TAB PO SCH (09:58)
[2019-07-14] MEDS: GABAPENTIN 300 MG CAP PO SCH (09:58)
[2019-07-14] MEDS: guaiFENesin 600 MG TABLET.ER PO SCH ×2 (09:58→19:42)
[2019-07-14] MEDS: LORATADINE 10 MG TAB PO SCH (09:58)
[2019-07-14] MEDS: amLODIPine 2.5 MG TAB PO SCH (10:06)
--- NOTE | 2019-07-14 13:01 | ECHOF ---
Referral Reason:NOS afib MEASUREMENTS -------- HEIGHT: 162.6 cm WEIGHT: 70.8 kg BP: 96/58 IVSd: 1.3 cm (0.6 - 1.1) LVIDd: 3.7 cm (3.9 - 5.3) LVPWd: 1.2 cm (0.6 - 1.1) IVSs: 1.7 cm LVIDs: 2.5 cm LVPWs: 1.7 cm LA Diam: 3.6 cm (2.7 - 3.8) RVIDd: 3.0 cm (< 3.3) LAESV Index (A-L): 28.22 ml/m Ao Diam: 3.0 cm (2.0 - 3.7) AV Cusp: 1.1 cm (1.5 - 2.6) EPSS: 0.7 cm MV E Edmundo: 1.17 m/s MV DecT: 253 ms MV A Edmundo: 0.99 m/s MV E/A Ratio: 1.19 AV maxP.36 mmHg AV meanP.93 mmHg RAP: 5.00 mmHg RVSP: 29.93 mmHg MV EF SLOPE: 53.32 mm/s (70 - 150) MV EXCURSION: 11.06 mm (> 18.000) FINDINGS -------- Sinus rhythm. This was a technically adequate study. The left ventricular size is normal. There is mild concentric left ventricular hypertrophy. Overa ll left ventricular systolic function is normal with, an EF between 60 - 65 %. The right ventricle is normal in size. Normal LA size by volume 22+/-6 ml/m2. The right atrium is normal in size. Interatrial and interventricular septum intact. There is moderate aortic valve sclerosis. There is moderate aortic stenosis present. Peak/mean gr adient across the Aortic Valve is 41.36mmHg / 27.93mmHg. The mitral valve leaflets are mildly thickened. Mild mitral annular calcification present. Mild-t o-moderate mitral regurgitation is present. Mild tricuspid regurgitation present. Right ventricular systolic pressure is normal at < 35 mmHg. The pulmonic valve was not well visualized. The aortic root size is normal. Normal inferior vena cava with normal inspiratory collapse consistent with estimated right atrial pre ssure of 5 mmHg. There is no pericardial effusion. CONCLUSIONS -------- 1. Sinus rhythm. 2. This was a technically adequate study. 3. The left ventricular size is normal. 4. There is mild concentric left ventricular hypertrophy. 5. Overall left ventricular systolic function is normal with, an EF between 60 - 65 %. 6. The right ventricle is normal in size. 7. Normal LA size by volume 22+/-6 ml/m2. 8. The right atrium is normal in size. 9. Interatrial and interventricular septum intact. 10. There is moderate aortic valve sclerosis. 11. There is moderate aortic stenosis present. 12. Peak/mean gradient across the Aortic Valve is 41.36mmHg / 27.93mmHg. 13. The mitral valve leaflets are mildly thickened. 14. Mild mitral annular calcification present. 15. [id number] mitral regurgitation is present. 16. Mild tricuspid regurgitation present. 17. Right ventricular systolic pressure is normal at < 35 mmHg. 18. The pulmonic valve was not well visualized. 19. The aortic root size is normal. 20. Normal inferior vena cava with normal inspiratory collapse consistent with estimated right atrial pressure of 5 mmHg. 21. There is no pericardial effusion. MILK DELIVERER: Jeri Neal RDCS
--- NOTE | 2019-07-14 13:57 | CONS ---
CONSULTATION REASON FOR CONSULTATION: New onset atrial fibrillation. HISTORY OF PRESENT ILLNESS: Mrs. Yajaira Vogel is an 84-year-old lady who is, at the time of my evaluation, resting comfortably and she is not in any distress. This lady was admitted to the hospital with complaints of feeling dizzy, lightheaded and had a near syncopal feeling. However, after she has been admitted to the hospital, a diagnosis of pneumonia was made. She has been started on antibiotics and while she was on the medical floor, she has developed an episode of atrial fib, rapid rate and was transferred here to the telemetry unit after discussion with me yesterday. This lady does not carry any diagnosis of atrial fibrillation. This appears to be her first episode. She does have a history of hypertension and hyperlipidemia. She also has a past history of breast cancer, macular degeneration, hypertension, and hyperlipidemia. She is status post right hip arthroplasty as well as cataract surgery. After coming to the telemetry unit, she has been placed on a Cardizem drip. She has converted to sinus rhythm. She is resting comfortably, feels much better. PAST MEDICAL HISTORY: 1. Hypertension. 2. Hyperlipidemia. 3. History of hip arthroplasty. 4. Breast cancer. 5. She has macular degeneration and a known heart murmur. 6. The patient is a past smoker, has quit smoking more than 10 years ago. MEDICATIONS: At home include amlodipine 5 mg daily, Lipitor 40 mg daily, Arimidex, she also takes some colchicine and allopurinol. ALLERGIES: None. REVIEW OF SYSTEMS: Review of Systems suggests that patient has been having fever, weakness, fatigue, lack of energy, dizziness, lightheadedness, but no hematemesis or melena or genitourinary symptoms. PHYSICAL EXAMINATION: Blood pressure is 100/60, pulse rate is about 70 per minute, sinus. HEENT unremarkable. Fundus was not examined by me. NECK: Supple. There is JVD of 1 cm. No carotid bruit. Heart exam reveals S1, S2 with ejection systolic murmur audible at the base of the heart. There is also a systolic murmur at the apex. LUNGS: Clear with areas of rales on both the right and left mid lung field area. Abdomen is soft, nontender. Lower extremities reveal diminished pulses. Central nervous system grossly no evidence of any focal deficits. IMPRESSION: 1. Paroxysmal atrial fibrillation, new onset, back in sinus rhythm now. 2. Pneumonia. 3. Hypertension. 4. Hyperlipidemia. RECOMMENDATION: I am recommending that we discontinue amlodipine, add metoprolol tartrate and also add a small dose of Cardizem 30 mg b.i.d. Obtain echocardiogram, seek pulmonary evaluation because patient seems to have some exacerbation of COPD as well. I will switch to Eliquis and discontinue IV heparin and place her on Eliquis at 2.5 mg b.i.d. We will use a lower dose for this patient given her multiple issues. I am requesting pulmonary evaluation for possible COPD exacerbation in addition to pneumonia. Thank you very much for the consult. CHRIS / IJN: [id number] /
--- NOTE | 2019-07-14 16:24 | P.CNPUL ---
History of Present Illness Consult date: 07/14/19 Requesting physician: Kiran Reece Reason for consult: pneumonia Chief complaint: Passing out episode and feeling warm History of present illness: This is an 84-year-old female with history of breast cancer, hypertension, osteoarthritis, macular degeneration, degenerative joint disease, remote smoking history, quit smoking over 28 years ago, patient had a [id number]-[id number] smoking history. She presented to the emergency room on 07/11/2019 with chief complaint of feeling warm was sitting at a table and playing a game, patient had a witnessed syncopal episode. Patient was out for 5-6 minutes, there was no evidence of any seizure activity, patient felt warm, lightheaded, and she passed out for a few minutes. Patient never had similar episodes in the past, she had no shortness of breath, no cough, no wheezing, no fever no chills no hemoptysis. Patient had a relatively normal labs on admission included a normal CBC, no cold leukocytosis, she had normal basic metabolic profile, creatinine was noted to be a bit elevated at 1.24. Lactic acid was normal. Glucose was normal. And her pro calcitonin was noted to be a bit elevated CT brain on admission showed cerebral atrophy and chronic small vessel ischemia. Chest x-ray done showed patchy infiltrate in the anterior right middle lobe, hence the patient was admitted with the impression of right middle lobe pneumonia. However since admission the patient had an episode of atrial fibrillation with RVR, treated with Cardizem, and seen by cardiology. It was felt to be a paroxysmal atrial fibrillation, new onset, and the recommendation was to place the patient on metoprolol, Cardizem 30 mg twice a day, and she had an echocardiogram which showed good LV function, no evidence of pulmonary hypertension, there was mild to moderate mitral regurgitation. Moderate aortic valve sclerosis. And moderate aortic stenosis. Patient was also placed on Eliquis by cardiology, and heparin was discontinued which was started initially. Presently during my evaluation, the patient had minimal cough, nonproductive, no chest pain, no fever, no chills, no hemoptysis, and no chest pain. After evaluating the patient, I recommended a d-dimer, I also recommended a venous Doppler of the lower extremities. The clinical suspicion for pneumonia is relatively low based on the presentation and based on the clinical history. Review of Systems Constitutional: Complains of generalized weakness. Eyes: Denies diplopia or blurred vision. Ears, nose, mouth and throat: Denies earache sore throat or nasal congestion. Cardiovascular: Denies chest pain, Denies shortness of breath Respiratory: As noted in HPI, minimal cough and congestion, cough is productive with whitish phlegm. Gastrointestinal: Denies nausea vomiting abdominal pain melena or hematemesis. Genitourinary: Denies hematuria or dysuria. Musculoskeletal: Denies myalgias Integumentary: Denies pruritus, Denies rash Neurological: As noted in HPI, one syncopal episode. Psychiatric: Denies any symptoms of anxiety or depression Endocrine: Denies heat or cold intolerance denies polyuria polyphagia or polydipsia. Past Medical History Past Medical History: Cancer, Eye Disorder, Hyperlipidemia, Hypertension, Osteoarthritis (OA) Additional Past Medical History / Comment(s): Macular degeneration, heart murm er, hx past kidney problems due to motrin use, breast cancer History of Any Multi-Drug Resistant Organisms: None Reported Past Surgical History: Breast Surgery, Joint Replacement Additional Past Surgical History / Comment(s): rt hip replacement, lt hip replacement, breast biopsy, kirit cataracts, Past Anesthesia/Blood Transfusion Reactions: No Reported Reaction Past Psychological History: No Psychological Hx Reported Smoking Status: Former smoker Past Alcohol Use History: Occasional Additional Past Alcohol Use History / Comment(s): quit smoking 10 yrs ago, smoked for about 30 yrs, <1PPD Past Drug Use History: None Reported - Past Family History Mother Family Medical History: Cancer Father Family Medical History: CVA/TIA, Myocardial Infarction ([place]) Medications and Allergies Home Medications Medication Instructions Recorded Confirmed Type Furosemide [Lasix] 20 mg PO Q48H 11/15/13 07/11/19 History Loratadine [Claritin] 10 mg PO DAILY 11/15/13 07/11/19 History Atorvastatin [Lipitor] 40 mg PO MOTH 11/18/16 07/11/19 History Anastrozole [Arimidex] 1 mg PO DAILY 11/21/18 07/11/19 History Allopurinol [Zyloprim] 150 mg PO DAILY 07/11/19 07/11/19 History Black Rousseau(Unknown Dose) 1 tab PO BID 07/11/19 07/11/19 History Calcium/Vitamin D3(Unknown Dose) 1 tab PO BID 07/11/19 07/11/19 History Cinnamon(Unknown Dose) 1 tab PO BID 07/11/19 07/11/19 History Co Q-10(Unknown Dose) 1 tab PO DAILY 07/11/19 07/11/19 History Colchicine 0.6 mg PO DAILY PRN 07/11/19 07/11/19 History Echinacea(Unknown Dose) 1 tab PO DAILY 07/11/19 07/11/19 History Famotidine [Pepcid AC] 10 mg PO DAILY PRN 07/11/19 07/11/19 History Turmeric(Unknown Dose) 1 tab PO DAILY 07/11/19 07/11/19 History Vit C/E/Zn/Coppr/Lutein/Zeaxan 1 cap PO BID 07/11/19 07/11/19 History [Preservision Areds 2 Softgel] Vitamin B Complex 1 cap PO DAILY 07/11/19 07/11/19 History Allergies Allergy/AdvReac Type Severity Reaction Status Date / Time No Known Allergies Allergy Verified 07/11/19 21:59 Physical Exam Vitals: Vital Signs Temp Pulse Pulse Resp BP Pulse Ox 07/14/19 13:05 82 07/14/19 13:00 97.9 F 88 18 104/70 97 07/14/19 12:55 88 07/14/19 09:44 108 H 07/14/19 09:36 116 H 97 07/14/19 08:00 98 F 84 18 96/58 95 07/14/19 03:51 99 F 87 18 98/63 97 07/14/19 00:00 99.2 F 104 H 18 125/75 98 07/13/19 21:52 121 H 07/13/19 21:44 121 H 07/13/19 19:29 100.3 F H 156 H 18 127/81 98 07/13/19 16:45 104 H 07/13/19 16:39 92 L 07/13/19 16:38 102 H Intake and Output 07/14/19 07/14/19 07/14/19 06:59 14:59 22:59 Intake Total 120.602 240 Output Total 800 Balance 120.602 -560 Intake: Intake, IV Titration 120.602 Amount Diltiazem 125 mg In 70.115 Sodium Chloride 0.9% 100 ml @ 7.58 MG/HR 7.58 mls/ hr IV .[id number] GRABIEL Rx#: [id number] Heparin Sod,Pork in 0.45% 50.487 NaCl 25,000 unit In 0.45 % NaCl 1 250ml.bag @ 12 UNITS/KG/HR 8.165 mls/hr IV .Q24H GRABIEL Rx#: [id number] Oral 240 Output: Urine 800 Other: # Voids 1 2 Weight 70.9 kg Physical Exam: Revealed a 84-year-old female in no distress. Head:, Atraumatic, normocephalic. HEENT:[Neck is supple.] [No neck masses.] [No thyromegaly.] [No JVD.] Chest: [Clear throughout, no crackles, no rhonchi, no wheezes.] Cardiac Exam: [Normal S1 and S2, no S3 gallop, 2/6 systolic murmur thought the precordium. Abdomen: [Soft, nontender, no megaly, no rebound, no guarding, normal bowel sounds.] Extremities: [No clubbing, trace of bipedal edema, no cyanosis.] Neurological Exam: [No focal neurologic deficit.] Alert and oriented 3. Psychiatric: Normal mood, affect and normal mental status examination. Skin: No rashes. Results - Laboratory Findings CBC and BMP: 07/14/19 05:49 07/12/19 08:18 PT/INR, D-dimer PT 10.2 sec (9.0-12.0) 07/13/19 20:35 INR 0.9 (<1.2) 07/13/19 20:35 Abnormal lab findings: Abnormal Labs 07/11/19 07/11/19 07/12/19 19:26 19:26 08:18 RBC 3.56 L 3.21 L Hgb 10.9 L Hct 33.7 L MCV 105.1 H D Lymphocytes # 0.4 L 0.4 L APTT Sodium 135 L Carbon Dioxide 19 L BUN 21 H Creatinine 1.24 H Glucose 124 H Procalcitonin 07/12/19 07/12/19 07/13/19 08:18 08:18 20:35 RBC 3.08 L Hgb 10.5 L Hct 30.9 L MCV 100.6 H Lymphocytes # 0.4 L APTT Sodium Carbon Dioxide BUN Creatinine 1.12 H Glucose Procalcitonin 0.28 H 07/14/19 07/14/19 01:48 05:49 RBC 2.71 L Hgb 9.2 L Hct 28.3 L MCV 104.2 H Lymphocytes # 0.5 L APTT 153.3 H* Sodium Carbon Dioxide BUN Creatinine Glucose Procalcitonin - Diagnostic Findings Chest x-ray: image reviewed (As noted in HPI,) Assessment and Plan Assessment: Impression: Syncopal episode, felt to be cardiac unless for otherwise, and it is most likely secondary to cardiac arrhythmia. Paroxysmal atrial fibrillation. New-onset. Abnormal chest x-ray, suspicious for community-acquired pneumonia however the clinical presentation did not point to pneumonia. Degenerative joint disease Benign essential hypertension History of breast cancer Dyslipidemia Acute kidney injury possibly secondary to acute tubular necrosis and hypotension. Recommendation: Continue present course of antibiotics. Continue treatment of atrial fibrillation/RVR Continue Eliquis I would recommend a d-dimer, and venous Doppler of the lower extremities. If abnormal may consider a CT angiogram of the chest. If findings are normal May consider a CT of the chest without contrast to ev aluate the right middle lobe abnormality. Mostly because the clinical history itself is not quite consistent with pneumonia. We'll continue to follow Time with Patient: Greater than 30
--- NOTE | 2019-07-14 17:01 | US ---
EXAMINATION TYPE: US venous doppler duplex LE BI DATE OF EXAM: 07/14/2019 4:48 PM COMPARISON: NONE CLINICAL HISTORY: dvt. Pain SIDE PERFORMED: Bilateral TECHNIQUE: The lower extremity deep venous system is examined utilizing real time linear array sonog florentino with graded compression, doppler sonography and color-flow sonography. VESSELS IMAGED: External Iliac Vein (EIV) Common Femoral Vein Deep Femoral Vein Greater Saphenous Vein * Femoral Vein Popliteal Vein Small Saphenous Vein * Proximal Calf Veins (* superficial vessels) Right Leg: Negative for DVT Left Leg: Negative for DVT Last's cyst left medial knee measuring 5.0 x 1.2 x 3.7 cm. IMPRESSION: No evidence of deep venous thrombosis in both legs. Left side popliteal cyst.
--- NOTE | 2019-07-14 18:23 | CT ---
EXAMINATION TYPE: CT angio chest DATE OF EXAM: 07/14/2019 COMPARISON: None HISTORY: elevated d-dimer CT DLP: 319.6 mGycm Automated exposure control for dose reduction was used. CONTRAST: Performed with IV Contrast, patient injected with 64cc mL of Isovue 370. There are 3-D post processed images. There are mild bilateral pleural effusions. Heart is enlarged. There is no pericardial effusion. Ther e is bilateral lower lobe pulmonary infiltrates and atelectasis. There is no mediastinal adenopathy. There are paratracheal lymph nodes less than 1 cm. Thoracic aorta is atheromatous. Ascending aorta measures 3.5 cm. There is no dissection. I see no filling defects in the pulmonary arteries. There are bilateral bronchial lymph nodes that me asure up to 1 cm. There is spurring in the thoracic spine. I see no bony destructive process. IMPRESSION: No evidence of pulmonary embolism. Pleural effusions with basilar pulmonary infiltrates and atelectasis could relate to congestive heart failure. Cardiomegaly. Pleural fluid appears new compared to chest x-ray of 07/11/2019.
[2019-07-14] MEDS: DILTIAZEM ORAL 30 MG TAB PO SCH (19:42)
--- NOTE | 2019-07-14 20:23 | PN ---
PROGRESS NOTE I am covering for Dr. Reece. DATE OF SERVICE: 07/14/2019 This 84-year-old woman who was admitted with right-sided possibly community- acquired pneumonia is being closely monitored at this time. The patient still has some wheezing. The patient was admitted after a syncopal episode and feeling warm. Dr. Chris is also following the patient closely. The patient also had paroxysmal atrial fibrillation, new onset, also. Cardiology following the patient closely. A 2D echo with Doppler was done which showed ejection fraction about 60-65 percent and venous Doppler showed no evidence of any DVT. Left-sided was noted. The D-dimer is 1.19 and hemoglobin is 9.2. The patient being closely monitored. Procalcitonin was 0.28. PAST MEDICAL HISTORY: Reviewed. REVIEW OF SYSTEMS: CARDIOVASCULAR SYSTEM: As mentioned earlier. RESPIRATORY: As mentioned earlier. GI no nausea or vomiting. : No dysuria or retention. CENTRAL NERVOUS SYSTEM: No focal deficits. CURRENT MEDICATIONS: Reviewed and include: 1. Tylenol p.r.n. 2. Huslia 5 mg. 3. DuoNeb. 4. Arimidex. 5. Eliquis. 6. Lipitor. 7. Zithromax. 8. Omnicef. 9. Cardizem. 10.Neurontin. 11.Mucinex. 12.Claritin. 13.Lopressor. 14.Senokot-S. PHYSICAL EXAM: Patient is alert and oriented x3. Pulse is 88. Blood pressure 105/70, respiration 18, temperature 97.9, pulse ox 97% on 2 L. HEENT: Conjunctivae normal. Neck: No jugular venous distention. CARDIOVASCULAR: S1, S2 muffled. RESPIRATIONS: Breath sounds diminished in the bases. A few scattered rhonchi and crackles. Expiratory wheezing also present. ABDOMEN: Soft. Nontender. LEGS are no edema. No swelling. CENTRAL NERVOUS SYSTEM: No focal deficits. LABS: WBC 5.2, hemoglobin 9.2. Otherwise other labs are noted. ASSESSMENT: 1. Syncope, possibly cardiac secondary to cardiac arrhythmia. 2. Possible right middle lobe community-acquired pneumonia. 3. Paroxysmal atrial fibrillation. 4. Hyperlipidemia. 5. History of degenerative joint disease. 6. History of hypertension. 7. History of macular degeneration. 8. History of breast surgery. 9. Remote history of nicotine dependence. 10.FULL CODE. RECOMMENDATIONS AND DISCUSSION: This 84-year-old woman who presented with multiple complex medical issues, at this time, I recommend to continue the current medications, management and symptomatic treatment. Otherwise, I recommend broad-spectrum IV antibiotics. Empiric antibiotics and bronchodilators. The patient is started on Cardizem per Cardiology. Otherwise continue rest of medication. Two-D echo noted. Prognosis guarded because of multiple complex medical issues which I discussed at length with the family. Otherwise, I would also recommend orthostatic checking of orthostatic vitals also. Otherwise prognosis guarded because of the multiple complex medical issues and further recommendations to follow. MMODL / IJN: [id number] / MTDD
[2019-07-15] MEDS: IPRATROPIUM-ALBUTEROL 3 ML NEB INHALATION SCH ×7 (00:35→23:32)
[2019-07-15] MEDS: HYDROcodone/APAP 5-325MG 1 EACH TAB PO PRN ×4 (02:51→22:09)
[2019-07-15 07:21] LABS: Basophils % (A) 0 %; Eosinophils # (A) 0.2 k/uL (0-0.7); Eosinophils % (A) 3 %; HCT 26.6 % (34.0-46.0); HGB 8.8 gm/dL (11.4-16.0); Lymphocytes # (A) 0.5 k/uL (1.0-4.8); Lymphocytes % (A) 8 %; MCH 33.3 pg (25.0-35.0); MCHC 33.2 g/dL (31.0-37.0); MCV 100.4 fL (80.0-100.0); Macrocytosis Slight; Mean Platelet Volume 7.5; Monocytes # (A) 0.4 k/uL (0-1.0); Monocytes % (A) 7 %; Neutrophils # (A) 4.8 k/uL (1.3-7.7); Neutrophils % (A) 79 %; Platelet Count 223 k/uL (150-450); RBC 2.65 m/uL (3.80-5.40); RDW 13.9 % (11.5-15.5); WBC 6.1 k/uL (3.8-10.6)
[2019-07-15 07:35] LABS: Calcium 8.3 mg/dL (8.4-10.2); Potassium 4.6 mmol/L (3.5-5.1)
[2019-07-15] MEDS ORDERED: METOPROLOL TARTRATE 50 MG TAB PO SCH (09:15)
[2019-07-15] MEDS: SENNOSIDES-DOCUSATE SODIUM 1 EACH TAB PO SCH (09:46)
[2019-07-15] MEDS: AZITHROMYCIN 500 MG TAB PO SCH (09:46)
[2019-07-15] MEDS: ANASTROZOLE 1 MG TAB PO SCH (09:46)
[2019-07-15] MEDS: LORATADINE 10 MG TAB PO SCH (09:47)
[2019-07-15] MEDS: GABAPENTIN 300 MG CAP PO SCH (09:47)
[2019-07-15] MEDS: APIXABAN 2.5 MG TABLET PO SCH ×2 (09:47→20:53)
[2019-07-15] MEDS: DILTIAZEM ORAL 30 MG TAB PO SCH ×2 (09:47→20:53)
[2019-07-15] MEDS: METOPROLOL TARTRATE 50 MG TAB PO SCH ×2 (09:48→20:53)
[2019-07-15] MEDS: guaiFENesin 600 MG TABLET.ER PO SCH ×2 (10:05→20:53)
[2019-07-15] MEDS: METOPROLOL TARTRATE 25 MG TAB PO SCH (10:06)
--- NOTE | 2019-07-15 10:27 | P.PN ---
Subjective Progress Note Date: 07/15/19 Principal diagnosis: Syncopal episodes, right middle lobe infiltrate and possible pneumonia This is an 84-year-old female with history of breast cancer, hypertension, osteoarthritis, macular degeneration, degenerative joint disease, remote smoking history, quit smoking over 28 years ago, patient had a [id number]-aftw smoking history. She presented to the emergency room on 07/11/2019 with chief complaint of feeling warm was sitting at a table and playing a game, patient had a wi tnessed syncopal episode. Patient was out for 5-6 minutes, there was no evidence of any seizure activity, patient felt warm, lightheaded, and she passed out for a few minutes. Patient never had similar episodes in the past, she had no shortness of breath, no cough, no wheezing, no fever no chills no hemoptysis. Patient had a relatively normal labs on admission included a normal CBC, no cold leukocytosis, she had normal basic metabolic profile, creatinine was noted to be a bit elevated at 1.24. Lactic acid was normal. Glucose was normal. And her pro calcitonin was noted to be a bit elevated CT brain on admission showed cerebral atrophy and chronic small vessel ischemia. Chest x-ray done showed patchy infiltrate in the anterior right middle lobe, hence the patient was admitted with the impression of right middle lobe pneumonia. However since admission the patient had an episode of atrial fibrillation with RVR, treated with Cardizem, and seen by cardiology. It was felt to be a paroxysmal atrial fibrillation, new onset, and the recommendation was to place the patient on metoprolol, Cardizem 30 mg twice a day, and she had an echocardiogram which showed good LV function, no evidence of pulmonary hypertension, there was mild to moderate mitral regurgitation. Moderate aortic valve sclerosis. And moderate aortic stenosis. Patient was also placed on Eliquis by cardiology, and heparin was discontinued which was started initially. Presently during my evaluation, the patient had minimal cough, nonproductive, no chest pain, no fever, no chills, no hemoptysis, and no chest pain. After evaluating the patient, I recommended a d-dimer, I also recommended a venous Doppler of the lower extremities. The clinical suspicion for pneumonia is relatively low based on the presentation and based on the clinical history. On 07/15/2019 patient seen in follow-up on selective care unit, she is awake and alert, she is sitting up in the chair, appears to be in no acute distress, her daughter is at the bedside, she states that around 3:00 in the morning patient received a breathing treatment, and was very short of breath, wheezy. Patient seems to have recovered from that episode, clinical exam does reveal bibasilar crackles. Addition patient did have a fever last night, with a temp of 101.0F. Not bringing up any phlegm, she is on 2 L of oxygen with pulse ox is 95%, she is afebrile this morning, she is on azithromycin and ceftriaxone for antibiotic coverage. Blood culture has shown no growth at the 72 hour evangelista. Today's labs have been reviewed, showing white blood cell count of 6.1, hemoglobin of 8.8, d- dimer was 1.19, CTA chest was obtained showing no evidence of pulmonary embolism did show pleural effusions with basilar pulmonary infiltrates and atelectasis that could relate to congestive heart failure. Ultrasound Dopplers of lower extremities were negative for DVTs Objective - Vital Signs Vital signs: Vital Signs Temp 98.1 F 07/15/19 03:17 Pulse 98 07/15/19 09:25 Resp 20 07/15/19 03:17 BP 144/76 07/15/19 03:17 Pulse Ox 95 07/15/19 03:17 Intake & Output 07/14/19 07/15/19 07/15/19 18:59 06:59 18:59 Intake Total 480 100 Output Total 800 Balance -320 100 Intake: Oral 480 100 Output: Urine 800 Other: # Voids 2 1 - Exam GENERAL EXAM: Alert, very pleasant, 84-year-old white female, on 2 L of oxygen with a pulse ox of 95%, comfortable in no apparent distress. HEAD: Normocephalic/atraumatic. EYES: Normal reaction of pupils, equal size. Conjunctiva pink, sclera white. NOSE: Clear with pink turbinates. THROAT: No erythema or exudates. NECK: No masses, no JVD, no thyroid enlargement, no adenopathy. CHEST: No chest wall deformity. Symmetrical expansion. LUNGS: Equal air entry with basilar crackles CVS: Regular rate and rhythm, normal S1 and S2, no gallops, positive systolic murmur, no rubs ABDOMEN: Soft, nontender. No hepatosplenomegaly, normal bowel sounds, no guarding or rigidity. EXTREMITIES: No clubbing, no edema, no cyanosis, 2+ pulses and upper and lower extremities. MUSCULOSKELETAL: Muscle strength and tone normal. SPINE: No scoliosis or deformity SKIN: No rashes CENTRAL NERVOUS SYSTEM: Alert and oriented -3. No focal deficits, tone is normal in all 4 extremities. PSYCHIATRIC: Alert and oriented -3. Appropriate affect. Intact judgment and insight. - Labs CBC & Chem 7: 07/15/19 06:19 07/15/19 06:19 Labs: Abnormal Lab Results - Last 24 Hours (Table) 07/14/19 07/15/19 07/15/19 Range/Units 15:57 06:19 06:19 RBC 2.65 L (3.80-5.40) m/uL Hgb 8.8 L (11.4-16.0) gm/dL Hct 26.6 L (34.0-46.0) % MCV 100.4 H (80.0-100.0) fL Lymphocytes # 0.5 L (1.0-4.8) k/uL D-Dimer 1.19 H (<0.60) mg/L FEU Sodium 128 L (137-145) mmol/L Carbon Dioxide 21 L (22-30) mmol/L BUN 22 H (7-17) mg/dL Creatinine 1.38 H (0.52-1.04) mg/dL Glucose 101 H (74-99) mg/dL Calcium 8.3 L (8.4-10.2) mg/dL Microbiology - Last 24 Hours (Table) 07/11/19 21:20 Blood Culture - Preliminary Blood No Growth after 72 hours Assessment and Plan Plan: Assessment: #1. Syncopal episode, possibly related to cardiac arrhythmia #2. Abnormal chest x-ray suspicious for community acquired pneumonia in the right middle lobe, CTA chest negative for pulmonary embolism, did show pleural effusions with basilar pulmonary infiltrates, possibility of acute diastolic congestive heart failure is being considered #3. Valvular heart disease, moderate aortic stenosis, [id number] mitral regurgitation, mild tricuspid regurgitation #4. New-onset atrial fibrillation, currently in sinus rhythm, has been started on Eliquis for anticoagulation #5. Hyponatremia, possibly related to acute CHF #6. Degenerative joint disease #7. Benign essential hypertension #8. History of breast cancer #9. Dyslipidemia #10. Acute kidney injury secondary to acute tubular necrosis Plan: Continue current antibiotics, patient has difficulty bringing up any phlegm, we will increase Mucinex, continue breathing treatments, send a sputum for culture, CTA chest was reviewed showing no evidence of pulmonary embolism, did show bibasilar pulmonary infiltrates, and small pleural effusions. Patient did have a febrile episode last night, will check influenza screen, we'll send a urinalysis, will restrict patient's water intake to 1500 mL, repeat electrolytes and renal profile tomorrow. We'll continue to follow I performed a history & physical examination of the patient and discussed their management with my nurse practitioner, Michelle Louise. I reviewed the nurse practitioner's note and agree with the documented findings and plan of care. Lung sounds are positive for basilar rales. The findings and the impression was discussed with the patient. I attest to the documentation by the nurse practitioner. Time with Patient: Less than 30
[2019-07-15 15:01] LABS: Appearance,Urine Clear (Clear); Bilirubin,Urine Negative (Negative); Blood,Urine Negative (Negative); Color,Urine Yellow; Glucose,Urine (UA) Negative (Negative); Ketones,Urine Negative (Negative); Leukocyte Esterase,Urine Negative (Negative); Nitrite,Urine Negative (Negative); PH, Urine 5.5 (5.0-8.0); Protein,Urine Trace (Negative); Urobilinogen,Urine <2.0 mg/dL (<2.0)
--- NOTE | 2019-07-15 15:21 | PN ---
PROGRESS NOTE Mrs. Vogel is in a sinus rhythm today, comfortable, resting. Vitals are stable. Echo revealed preserved ejection fraction with moderate aortic stenosis. Findings of echo reviewed with the patient. She also has a combination of pneumonia and COPD in addition to aortic stenosis. Vitals are stable. Ejection systolic murmur is audible. Lungs revealed improved air entry. Abdomen and lower extremity exam unchanged. Plan is to continue current medications, optimize her pulmonary status, increase activity and potential discharge in the next 48 hours. I explained to the patient her findings and findings on echo and my clinical impression and also talked to the daughter at length. MMODL / IJN: [id number] /
--- NOTE | 2019-07-15 18:12 | XR ---
EXAMINATION TYPE: XR chest 1V portable DATE OF EXAM: 07/15/2019 COMPARISON: NONE HISTORY: Syncope TECHNIQUE: 2 views FINDINGS: There is some blunting of the costophrenic angles. Heart is enlarged. There are chest leads . There is mild pulmonary congestion. IMPRESSION: There is increased pleural fluid compared to last exam. There is probably mild heart fail ure.
--- NOTE | 2019-07-15 21:14 | PN ---
PROGRESS NOTE DATE OF SERVICE: 07/15/2019 I am covering for Dr. Reece This 84-year-old woman was admitted with right-sided possibly community acquired pneumonia is being closely monitored. Patient is complaining of extreme tiredness and weakness today. A chest CT was done which did not show any evidence of any pulmonary embolism. Pleural effusion with bibasilar pulmonary infiltrate and atelectasis also noted. Cardiomegaly is also noted. Multiple consultants are following the patient closely. PAST MEDICAL HISTORY: Reviewed. REVIEW OF SYSTEMS: Cardiovascular system: As mentioned earlier. Respiratory: As mentioned earlier. GI: As mentioned earlier. : No dysuria. CENTRAL NERVOUS SYSTEM: No numbness or weakness. CURRENT MEDICATIONS: Reviewed and include: 1. Tylenol p.r.n. 2. [place] 5 mg q.6h p.r.n. 3. DuoNeb q.i.d. and p.r.n. 4. Arimidex 1 mg. 5. Eliquis 2.5 mg b.i.d. 6. Lipitor 40 mg p.o. daily. 7. Zithromax 500 mg p.o. daily. 8. Rocephin 1 g daily. 9. Cardizem 30 mg p.o. b.i.d. 10.Neurontin. 11.Mucinex. 12.Claritin. 13.Lopressor. 14.Senokot. PHYSICAL EXAMINATION: Patient is alert, oriented x3. Pulse is 80. Blood pressure is 98/65, respiratory rate 18. Temperature 98.7, pulse ox 93% on 2 L. HEENT is conjunctivae normal. NECK: No JVD. CARDIOVASCULAR: S1, S2 muffled. RESPIRATIONS: Breath sounds diminished in the bases. A few scattered rhonchi and crackles. ABDOMEN: Soft, nontender. LEGS: No edema. CENTRAL NERVOUS SYSTEM: No focal deficits. LABS: WBC 6.1, hemoglobin is 8.8, and D-dimer is 1.19. Creatinine is 1.38. Influenza negative. ASSESSMENT: 1. Syncope, possibly cardiac secondary to cardiac arrhythmia, present on admission. 2. Possible right middle lobe community-acquired pneumonia. 3. Paroxysmal atrial fibrillation. 4. Hyperlipidemia. 5. History of degenerative joint disease. 6. History of hypertension. 7. History of macular degeneration. 8. History of breast surgery. 9. Generalized weakness and tiredness and gait dysfunction. 10.Remote history of nicotine dependence. 11.FULL CODE. 12.Rule out congestive heart failure. RECOMMENDATIONS AND DISCUSSION: In this 84-year-old woman who presented with multiple medical issues, at this time, I recommend continue the current medications, management and symptomatic treatment. The creatinine stabilized at 1.38. At this time, there is no evidence of any pulmonary embolism. I would recommend PT/OT evaluation and possible arrange home rehabilitation if deemed necessary. Otherwise, I would recommend a chest x-ray currently to rule out the possibility of any active CHF. Prognosis guarded because of multiple complex medical issues. Further recommendations to follow. Dr. Reece will follow tomorrow. Discussed with the patient's family at length, understands and agrees. ANDREEAL / IJN: [id number] /
[2019-07-16] MEDS: IPRATROPIUM-ALBUTEROL 3 ML NEB INHALATION SCH ×5 (04:28→19:51)
[2019-07-16] MEDS: HYDROcodone/APAP 5-325MG 1 EACH TAB PO PRN ×4 (04:40→22:58)
[2019-07-16] MEDS ORDERED: FUROSEMIDE 10 MG/ML 2 ML VIAL IV ONE (06:05)
[2019-07-16 06:36] LABS: Basophils % (A) 0 %; Eosinophils # (A) 0.2 k/uL (0-0.7); Eosinophils % (A) 4 %; HCT 27.6 % (34.0-46.0); HGB 9.6 gm/dL (11.4-16.0); Lymphocytes # (A) 0.4 k/uL (1.0-4.8); Lymphocytes % (A) 8 %; MCH 35.1 pg (25.0-35.0); MCHC 34.8 g/dL (31.0-37.0); Macrocytosis Slight; Mean Platelet Volume 7.6; Monocytes # (A) 0.5 k/uL (0-1.0); Monocytes % (A) 9 %; Neutrophils # (A) 4.3 k/uL (1.3-7.7); Neutrophils % (A) 77 %; Platelet Count 246 k/uL (150-450); RBC 2.74 m/uL (3.80-5.40); WBC 5.7 k/uL (3.8-10.6)
[2019-07-16] MEDS: DILTIAZEM ORAL 30 MG TAB PO SCH ×2 (07:08→21:31)
[2019-07-16 07:32] LABS: Calcium 8.6 mg/dL (8.4-10.2); Potassium 4.6 mmol/L (3.5-5.1)
[2019-07-16] MEDS: guaiFENesin 600 MG TABLET.ER PO SCH ×2 (07:45→21:30)
[2019-07-16] MEDS: METOPROLOL TARTRATE 50 MG TAB PO SCH ×2 (07:45→21:31)
[2019-07-16] MEDS: ATORVASTATIN 40 MG TAB PO SCH (07:45)
[2019-07-16] MEDS: AZITHROMYCIN 500 MG TAB PO SCH (07:45)
[2019-07-16] MEDS: APIXABAN 2.5 MG TABLET PO SCH (07:45)
[2019-07-16] MEDS: GABAPENTIN 300 MG CAP PO SCH (07:45)
[2019-07-16] MEDS: ANASTROZOLE 1 MG TAB PO SCH (07:46)
[2019-07-16] MEDS: LORATADINE 10 MG TAB PO SCH (07:46)
[2019-07-16] MEDS: SENNOSIDES-DOCUSATE SODIUM 1 EACH TAB PO SCH (07:46)
[2019-07-16] MEDS: AMIODARONE 200 MG TAB PO SCH ×2 (12:54→22:13)
--- NOTE | 2019-07-16 13:49 | P.PN ---
Subjective Progress Note Date: 07/16/19 this is a pleasant 84-year-old female who has a known history of breast cancer, hypertension, osteoarthritis, macular degeneration, remote smoking history, she quit smoking about 28 years ago. She presented to the hospital following a syncopal episode. According to her and her daughter, this is the third episode of syncope that the patient has experienced. On this occasion, patient did have a brief period of shaking prior to passing out, and she did lose bladder function. No other warning prior to that.cardiology consultation was requested because of new onset of atrial fibrillation. A ccording to the patient she denies any history of that in the past. Patient was back in atrial fibrillation this morning, it appears that she's been in and out of A. fib. We will start her on some amiodarone today. Patient was also more short of breath at this morning, the chest x-ray did show congestive heart failure. Patient was given a one-time dose of IV Lasix and we started her on oral diuretics as well. She is also on 2-1/2 mg of Eliquis, we will increase that to 5 mg by mouth twice a day. We would also recommend that the patient have a neurology evaluation, because of the fact that she did lose bladder function and had some mild tremor activity prior to passing out. Overall the patient does feel well today, sitting up in the chair, just complaining of some mild shortness of breath. Objective - Vital Signs Vital signs: Vital Signs Temp 98.8 F 07/16/19 07:34 Pulse 80 07/16/19 11:28 Resp 18 07/16/19 08:00 BP 117/69 07/16/19 07:34 Pulse Ox 97 07/16/19 07:34 Intake & Output 07/15/19 07/16/19 07/16/19 18:59 06:59 18:59 Intake Total 495 360 Output Total 70 1100 300 Balance 425 -1100 60 Weight 73.3 kg Intake: Intake, IV Titration 50 Amount cefTRIAXone 1 gm In 50 Sodium Chloride 0.9% 50 ml @ 100 mls/hr IVPB Q24HR [facility] Rx#:[id number] Oral 445 360 Output: Urine 70 1100 300 Other: # Voids 2 # Bowel Movements 1 - Exam GENERAL EXAM: Alert, very pleasant, 84-year-old white female, on 2 L of oxygen with a pulse ox of 95%, comfortable in no apparent distress. HEAD: Normocephalic/atraumatic. EYES: Normal reaction of pupils, equal size. Conjunctiva pink, sclera white. NOSE: Clear with pink turbinates. THROAT: No erythema or exudates. NECK: No masses, no JVD, no thyroid enlargement, no adenopathy. CHEST: No chest wall deformity. Symmetrical expansion. LUNGS: Equal air entry with basilar crackles CVS: Regular rate and rhythm, normal S1 and S2, no gallops, positive systolic murmur, no rubs ABDOMEN: Soft, nontender. No hepatosplenomegaly, normal bowel sounds, no guarding or rigidity. EXTREMITIES: No clubbing, no edema, no cyanosis, 2+ pulses and upper and lower extremities. MUSCULOSKELETAL: Muscle strength and tone normal. SPINE: No scoliosis or deformity SKIN: No rashes CENTRAL NERVOUS SYSTEM: Alert and oriented -3. No focal deficits, tone is normal in all 4 extremities. PSYCHIATRIC: Alert and oriented -3. Appropriate affect. Intact judgment and insight. - Labs CBC & Chem 7: 07/16/19 05:45 07/16/19 05:45 Labs: Abnormal Lab Results - Last 24 Hours (Table) 07/15/19 07/15/19 07/16/19 Range/Units 06:19 13:41 05:45 RBC 2.74 L (3.80-5.40) m/uL Hgb 9.6 L (11.4-16.0) gm/dL Hct 27.6 L (34.0-46.0) % MCV 101.0 H (80.0-100.0) fL MCH 35.1 H (25.0-35.0) pg Lymphocytes # 0.4 L (1.0-4.8) k/uL Sodium (137-145) mmol/L Chloride (98-107) mmol/L Carbon Dioxide (22-30) mmol/L BUN (7-17) mg/dL Creatinine (0.52-1.04) mg/dL Procalcitonin 0.42 H (0.02-0.09) ng/mL Urine Protein Trace H (Negative) 07/16/19 Range/Units 05:45 RBC (3.80-5.40) m/uL Hgb (11.4-16.0) gm/dL Hct (34.0-46.0) % MCV (80.0-100.0) fL MCH (25.0-35.0) pg Lymphocytes # (1.0-4.8) k/uL Sodium 128 L (137-145) mmol/L Chloride 97 L (98-107) mmol/L Carbon Dioxide 19 L (22-30) mmol/L BUN 23 H (7-17) mg/dL Creatinine 1.45 H (0.52-1.04) mg/dL Procalcitonin (0.02-0.09) ng/mL Urine Protein (Negative) Microbiology - Last 24 Hours (Table) 07/11/19 21:20 Blood Culture - Preliminary Blood No Growth after 96 hours Assessment and Plan Plan: Assessment and plan: #1. Syncopal episode,r/o cardiac pauses versus neuro. Possible seizures #2. diastolic congestive heart failure acute on chronic #3. Valvular heart disease, moderate aortic stenosis, [id number] mitral regurgitation, mild tricuspid regurgitation #4. New-onset atrial fibrillation,paroxysmal, currently in sinus rhythm, has been started on Eliquis for anticoagulation #5. Hyponatremia #6. Degenerative joint disease #7. Benign essential hypertension #8. History of breast cancer #9. Dyslipidemia #10. Acute kidney injury secondary to acute tubular necrosis Plan We will start the patient on amiodarone today with the intention of attempting to keep the patient in a normal sinus rhythm. We will also recommend a neurology consultation and evaluation for possible seizures. Further recommendations to follow. DNP note has been reviewed, I agree with a documented findings and plan of care. Patient was seen and examined.
[2019-07-16] MEDS: FUROSEMIDE 20 MG TAB PO SCH (15:22)
--- NOTE | 2019-07-16 16:33 | P.PN ---
Subjective Progress Note Date: 07/16/19 Principal diagnosis: Syncopal episodes, right middle lobe infiltrate and possible pneumonia This is an 84-year-old female with history of breast cancer, hypertension, osteoarthritis, macular degeneration, degenerative joint disease, remote smoking history, quit smoking over 28 years ago, patient had a 32-aift-vary smoking history. She presented to the emergency room on 07/11/2019 with chief complaint of feeling warm was sitting at a table and playing a game, patient had a wi tnessed syncopal episode. Patient was out for 5-6 minutes, there was no evidence of any seizure activity, patient felt warm, lightheaded, and she passed out for a few minutes. Patient never had similar episodes in the past, she had no shortness of breath, no cough, no wheezing, no fever no chills no hemoptysis. Patient had a relatively normal labs on admission included a normal CBC, no cold leukocytosis, she had normal basic metabolic profile, creatinine was noted to be a bit elevated at 1.24. Lactic acid was normal. Glucose was normal. And her pro calcitonin was noted to be a bit elevated CT brain on admission showed cerebral atrophy and chronic small vessel ischemia. Chest x-ray done showed patchy infiltrate in the anterior right middle lobe, hence the patient was admitted with the impression of right middle lobe pneumonia. However since admission the patient had an episode of atrial fibrillation with RVR, treated with Cardizem, and seen by cardiology. It was felt to be a paroxysmal atrial fibrillation, new onset, and the recommendation was to place the patient on metoprolol, Cardizem 30 mg twice a day, and she had an echocardiogram which showed good LV function, no evidence of pulmonary hypertension, there was mild to moderate mitral regurgitation. Moderate aortic valve sclerosis. And moderate aortic stenosis. Patient was also placed on Eliquis by cardiology, and heparin was discontinued which was started initially. Presently during my evaluation, the patient had minimal cough, nonproductive, no chest pain, no fever, no chills, no hemoptysis, and no chest pain. After evaluating the patient, I recommended a d-dimer, I also recommended a venous Doppler of the lower extremities. The clinical suspicion for pneumonia is relatively low based on the presentation and based on the clinical history. On 07/15/2019 patient seen in follow-up on selective care unit, she is awake and alert, she is sitting up in the chair, appears to be in no acute distress, her daughter is at the bedside, she states that around 3:00 in the morning patient received a breathing treatment, and was very short of breath, wheezy. Patient seems to have recovered from that episode, clinical exam does reveal bibasilar crackles. Addition patient did have a fever last night, with a temp of 101.0F. Not bringing up any phlegm, she is on 2 L of oxygen with pulse ox is 95%, she is afebrile this morning, she is on azithromycin and ceftriaxone for antibiotic coverage. Blood culture has shown no growth at the 72 hour evangelista. Today's labs have been reviewed, showing white blood cell count of 6.1, hemoglobin of 8.8, d- dimer was 1.19, CTA chest was obtained showing no evidence of pulmonary embolism did show pleural effusions with basilar pulmonary infiltrates and atelectasis that could relate to congestive heart failure. Ultrasound Dopplers of lower extremities were negative for DVTs. On 07/16/2019 patient seen in follow-up on selective care unit. She is awake and alert, in no acute distress, no fever, no cough, no phlegm production, room air pulse ox is 94%. Continues on empiric antibiotics, when the form of Zithromax and ceftriaxone, continues on diuretics, she is in negative fluid balance, feeling better, no acute events overnight, no complaints of shortness of breath, no fever or chills Objective - Vital Signs Vital signs: Vital Signs Temp 97.6 F 07/16/19 15:25 Pulse 76 07/16/19 16:07 Resp 18 07/16/19 15:25 BP 105/63 07/16/19 15:25 Pulse Ox 94 L 07/16/19 15:25 Intake & Output 07/15/19 07/16/19 07/16/19 18:59 06:59 18:59 Intake Total 495 360 Output Total 70 1100 300 Balance 425 -1100 60 Weight 73.3 kg Intake: Intake, IV Titration 50 Amount cefTRIAXone 1 gm In 50 Sodium Chloride 0.9% 50 ml @ 100 mls/hr IVPB Q24HR [facility] Rx#:[id number] Oral 445 360 Output: Urine 70 1100 300 Other: # Voids 2 # Bowel Movements 1 - Exam GENERAL EXAM: Alert, very pleasant, 84-year-old white female, on 2 L of oxygen with a pulse ox of 95%, comfortable in no apparent distress. HEAD: Normocephalic/atraumatic. EYES: Normal reaction of pupils, equal size. Conjunctiva pink, sclera white. NOSE: Clear with pink turbinates. THROAT: No erythema or exudates. NECK: No masses, no JVD, no thyroid enlargement, no adenopathy. CHEST: No chest wall deformity. Symmetrical expansion. LUNGS: Equal air entry with basilar crackles CVS: Regular rate and rhythm, normal S1 and S2, no gallops, positive systolic murmur, no rubs ABDOMEN: Soft, nontender. No hepatosplenomegaly, normal bowel sounds, no guarding or rigidity. EXTREMITIES: No clubbing, no edema, no cyanosis, 2+ pulses and upper and lower extremities. MUSCULOSKELETAL: Muscle strength and tone normal. SPINE: No scoliosis or deformity SKIN: No rashes CENTRAL NERVOUS SYSTEM: Alert and oriented -3. No focal deficits, tone is normal in all 4 extremities. PSYCHIATRIC: Alert and oriented -3. Appropriate affect. Intact judgment and insight. - Labs CBC & Chem 7: 07/16/19 05:45 07/16/19 05:45 Labs: Abnormal Lab Results - Last 24 Hours (Table) 07/15/19 07/16/19 07/16/19 Range/Units 06:19 05:45 05:45 RBC 2.74 L (3.80-5.40) m/uL Hgb 9.6 L (11.4-16.0) gm/dL Hct 27.6 L (34.0-46.0) % MCV 101.0 H (80.0-100.0) fL MCH 35.1 H (25.0-35.0) pg Lymphocytes # 0.4 L (1.0-4.8) k/uL Sodium 128 L (137-145) mmol/L Chloride 97 L (98-107) mmol/L Carbon Dioxide 19 L (22-30) mmol/L BUN 23 H (7-17) mg/dL Creatinine 1.45 H (0.52-1.04) mg/dL Procalcitonin 0.42 H (0.02-0.09) ng/mL Microbiology - Last 24 Hours (Table) 07/11/19 21:20 Blood Culture - Preliminary Blood No Growth after 96 hours Assessment and Plan Plan: Assessment: #1. Syncopal episode, possibly related to cardiac arrhythmia #2. Abnormal chest x-ray suspicious for community acquired pneumonia in the right middle lobe, CTA chest negative for pulmonary embolism, did show pleural effusions with basilar pulmonary infiltrates, possibility of acute diastolic congestive heart failure is being considered #3. Valvular heart disease, moderate aortic stenosis, [id number] mitral regurgitation, mild tricuspid regurgitation #4. New-onset atrial fibrillation, currently in sinus rhythm, has been started on Eliquis for anticoagulation #5. Hyponatremia, possibly related to acute CHF #6. Degenerative joint disease #7. Benign essential hypertension #8. History of breast cancer #9. Dyslipidemia #10. Acute kidney injury secondary to acute tubular necrosis Plan: Continue empiric antibiotic coverage, patient has had no fever or chills, no cough or phlegm production, no worsening dyspnea. Increase activity as tolerated, vital signs are stable. PT and OT evaluation for discharge planning. We believe the patient's symptoms are more consistent with acute exacerbation of diastolic congestive heart failure rather than underlying pneumonia although it cannot be completely ruled out. Recommend completion of empiric antibiotics. Patient will need outpatient follow-up with Dr. Garcia in the office in one to 2 weeks. I performed a history & physical examination of the patient and discussed their management with my nurse practitioner, Michelle Louise. I reviewed the nurse practitioner's note and agree with the documented findings and plan of care. Lung sounds are positive for basilar rales. The findings and the impression was discussed with the patient. I attest to the documentation by the nurse practitioner. Time with Patient: Less than 30
[2019-07-16] MEDS: APIXABAN 5 MG TAB PO SCH (21:30)
[2019-07-16] MEDS: BENZOCAINE/MENTHOL LOZENG 1 EACH LOZENGE MUCOUS MEM PRN (22:58)
--- NOTE | 2019-07-16 23:01 | P.PN ---
Subjective Progress Note Date: 07/16/19 She is resting in bed today, still feeling short of breath with exertion today. She is again in atrial fibrillation today although heart rate is controlled Objective - Vital Signs Vital signs: Vital Signs Temp 97.6 F 07/16/19 15:25 Pulse 78 07/16/19 20:02 Resp 18 07/16/19 15:25 BP 105/63 07/16/19 15:25 Pulse Ox 94 L 07/16/19 15:25 Intake & Output 07/16/19 07/16/19 07/17/19 06:59 18:59 06:59 Intake Total 720 Output Total 1100 300 Balance -1100 420 Weight 73.3 kg Intake: Oral 720 Output: Urine 1100 300 Other: # Voids 2 # Bowel Movements 1 - Exam General: well nourished, well developed, NAD. Vitals reviewed Lungs: normal respiratory effort, no wheezes or rales CV: Irregular, systolic murmur. Peripheral pulses 2+ Abdomen: soft, nondistended, no organomegaly Skin: warm and dry. - Labs CBC & Chem 7: 07/16/19 05:45 07/16/19 05:45 Labs: Abnormal Lab Results - Last 24 Hours (Table) 07/15/19 07/16/19 07/16/19 Range/Units 06:19 05:45 05:45 RBC 2.74 L (3.80-5.40) m/uL Hgb 9.6 L (11.4-16.0) gm/dL Hct 27.6 L (34.0-46.0) % MCV 101.0 H (80.0-100.0) fL MCH 35.1 H (25.0-35.0) pg Lymphocytes # 0.4 L (1.0-4.8) k/uL Sodium 128 L (137-145) mmol/L Chloride 97 L (98-107) mmol/L Carbon Dioxide 19 L (22-30) mmol/L BUN 23 H (7-17) mg/dL Creatinine 1.45 H (0.52-1.04) mg/dL Procalcitonin 0.42 H (0.02-0.09) ng/mL Microbiology - Last 24 Hours (Table) 07/11/19 21:20 Blood Culture - Preliminary Blood No Growth after 96 hours Assessment and Plan (1) Community acquired pneumonia Current Visit: Yes Status: Acute Code(s): J18.9 - PNEUMONIA, UNSPECIFIED ORGANISM SNOMED Code(s): 725322261 (2) Hyperlipemia Current Visit: No Status: Chronic Code(s): E78.5 - HYPERLIPIDEMIA, UNSPECIFIED SNOMED Code(s): 92503012 (3) Osteoarthritis Current Visit: No Status: Chronic Code(s): M19.90 - UNSPECIFIED OSTEOARTHRITIS, UNSPECIFIED SITE SNOMED Code(s): 626452885 (4) RML pneumonia Current Visit: Yes Status: Acute Code(s): J18.9 - PNEUMONIA, UNSPECIFIED ORGANISM SNOMED Code(s): 044980699 (5) HTN (hypertension) Current Visit: No Status: Chronic Code(s): I10 - ESSENTIAL (PRIMARY) HYPERTENSION SNOMED Code(s): 32039597 Plan: 1. Syncopal event. Suspect cardiogenic. New diagnosis of A fib this admission. Cardiology following, pt on lopressor, eliquis, given amiodarone today 2. Acute diastolic CHF. Continue lasix 3. Community acquired pneumonia. Empiric coverage with rocephin and az ithromycin. Pulmonary following
[2019-07-17] MEDS: HYDROcodone/APAP 5-325MG 1 EACH TAB PO PRN ×3 (05:22→19:11)
[2019-07-17] MEDS: BENZOCAINE/MENTHOL LOZENG 1 EACH LOZENGE MUCOUS MEM PRN (05:22)
[2019-07-17] MEDS ORDERED: IPRATROPIUM-ALBUTEROL 3 ML NEB INHALATION SCH (08:00)
[2019-07-17] MEDS: LORATADINE 10 MG TAB PO SCH (08:23)
[2019-07-17] MEDS: GABAPENTIN 300 MG CAP PO SCH (08:23)
[2019-07-17] MEDS: guaiFENesin 600 MG TABLET.ER PO SCH ×2 (08:23→22:19)
[2019-07-17] MEDS: ANASTROZOLE 1 MG TAB PO SCH (08:24)
[2019-07-17] MEDS: DILTIAZEM ORAL 30 MG TAB PO SCH (08:24)
[2019-07-17] MEDS: METOPROLOL TARTRATE 50 MG TAB PO SCH ×2 (08:24→22:20)
[2019-07-17] MEDS: FUROSEMIDE 20 MG TAB PO SCH ×2 (08:24→17:21)
[2019-07-17] MEDS: AZITHROMYCIN 500 MG TAB PO SCH (08:24)
[2019-07-17] MEDS: APIXABAN 5 MG TAB PO SCH (08:24)
[2019-07-17] MEDS: SENNOSIDES-DOCUSATE SODIUM 1 EACH TAB PO SCH (08:28)
[2019-07-17 08:48] LABS: Basophils % (A) 1 %; Eosinophils # (A) 0.2 k/uL (0-0.7); Eosinophils % (A) 4 %; HCT 29.4 % (34.0-46.0); HGB 9.6 gm/dL (11.4-16.0); Lymphocytes # (A) 0.5 k/uL (1.0-4.8); Lymphocytes % (A) 11 %; MCH 32.7 pg (25.0-35.0); MCHC 32.7 g/dL (31.0-37.0); Mean Platelet Volume 7.1; Monocytes # (A) 0.3 k/uL (0-1.0); Monocytes % (A) 7 %; Neutrophils # (A) 3.3 k/uL (1.3-7.7); Neutrophils % (A) 74 %; Platelet Count 266 k/uL (150-450); RBC 2.94 m/uL (3.80-5.40); RDW 13.7 % (11.5-15.5); WBC 4.5 k/uL (3.8-10.6)
[2019-07-17 09:00] LABS: Calcium 8.8 mg/dL (8.4-10.2)
[2019-07-17] MEDS: AMIODARONE 200 MG TAB PO SCH ×2 (09:44→22:20)
--- NOTE | 2019-07-17 10:49 | P.PN ---
Subjective Progress Note Date: 07/17/19 This is a pleasant 84-year-old female patient who has a known history of breast cancer, hypertension, osteoarthritis, macular degeneration, remote smoking history, quit smoking about 20 years ago. Presented to the hospital following a syncopal episode. According to her and her daughter, this is the third episode of syncope that the patient had experienced. On this occasion, patient did have brief period of shaking prior to passing out and she did lose bladder function. We were asked to the patient consultation for new onset atrial fibrillation with rapid ventricular response. Patient was noted to be back in atrial fibrillation yesterday morning and was initiated on amiodarone along with metoprolol 50 mg by mouth twice a day and Cardizem 30 mg by mouth twice a day. She is currently on Eliquis 5 mg by mouth twice a day. Neurology has been consulted because of loss of bowel function and tremor activity prior to passing out. Overall, the patient is not feeling well today. She complains of shortness of breath with activity. She is currently in atrial fibrillation with a poorly controlled ventricular response, heart rate in the 120s. Laboratory showed a creatinine of 1.53. Objective - Vital Signs Vital signs: Vital Signs Temp 97.9 F 07/17/19 09:00 Pulse 106 H 07/17/19 09:00 Resp 18 07/17/19 09:00 BP 123/83 07/17/19 09:00 Pulse Ox 95 07/17/19 07:05 Intake & Output 07/16/19 07/17/19 07/17/19 18:59 06:59 18:59 Intake Total 720 480 Output Total 300 600 Balance 420 -120 Weight 72.7 kg Intake: Oral 720 480 Output: Urine 300 600 Other: Voiding Method Toilet - Exam PHYSICAL EXAMINATION: HEENT: Head is atraumatic, normocephalic. Pupils equal, round. Neck is supple. There is no elevated jugular venous pressure. HEART EXAMINATION: Heart sounds irregularly irregular, S1 and S2 with systolic murmur. CHEST EXAMINATION: Lungs reveal expiratory wheezing throughout. No chest wall tenderness is noted on palpation or with deep breathing. ABDOMEN: Soft, nontender. Bowel sounds are heard. No organomegaly noted. EXTREMITIES: 2+ peripheral pulses with evidence of mild lower extremity edema, right greater than left, no calf tenderness noted. NEUROLOGIC patient is awake, alert and oriented x3. . - Labs CBC & Chem 7: 07/17/19 08:00 07/17/19 08:00 Labs: Abnormal Lab Results - Last 24 Hours (Table) 07/17/19 07/17/19 Range/Units 08:00 08:00 RBC 2.94 L (3.80-5.40) m/uL Hgb 9.6 L (11.4-16.0) gm/dL Hct 29.4 L (34.0-46.0) % Lymphocytes # 0.5 L (1.0-4.8) k/uL Sodium 128 L (137-145) mmol/L Chloride 96 L (98-107) mmol/L Carbon Dioxide 20 L (22-30) mmol/L BUN 25 H (7-17) mg/dL Creatinine 1.53 H (0.52-1.04) mg/dL Microbiology - Last 24 Hours (Table) 07/11/19 21:20 Blood Culture - Preliminary Blood No Growth after 120 hours Assessment and Plan Assessment: #1. Syncopal episode,r/o cardiac pauses versus neuro. Possible seizures #2. diastolic congestive heart failure acute on chronic #3. Valvular heart disease, moderate aortic stenosis, [id number] mitral regurgitation, mild tricuspid regurgitation #4. New-onset atrial fibrillation,paroxysmal, currently in sinus rhythm, has been started on Eliquis for anticoagulation #5. Hyponatremia #6. Degenerative joint disease #7. Benign essential hypertension #8. History of breast cancer #9. Dyslipidemia #10. Acute kidney injury secondary to acute tubular necrosis Plan: From cardiology's perspective, we will increase Cardizem to 60 mg by mouth twice a day. Decrease Eliquis to 2.5 mg by mouth twice a day due to worsening renal function. Continue monitor renal function and electrolytes. Continue Lasix 20 mg by mouth twice a day. We will continue to follow the patient for further recommendations accordingly. [employer] note has been reviewed, I agree with a documented findings and plan of care. Patient was seen and examined.
[2019-07-17 13:19] VITALS: BMI 27.5
--- NOTE | 2019-07-17 13:48 | P.PN ---
Subjective Progress Note Date: 07/17/19 Principal diagnosis: Syncopal episodes, right middle lobe infiltrate and possible pneumonia This is an 84-year-old female with history of breast cancer, hypertension, osteoarthritis, macular degeneration, degenerative joint disease, remote smoking history, quit smoking over 28 years ago, patient had a [id number] smoking history. She presented to the emergency room on 07/11/2019 with chief complaint of feeling warm was sitting at a table and playing a game, patient had a wi tnessed syncopal episode. Patient was out for 5-6 minutes, there was no evidence of any seizure activity, patient felt warm, lightheaded, and she passed out for a few minutes. Patient never had similar episodes in the past, she had no shortness of breath, no cough, no wheezing, no fever no chills no hemoptysis. Patient had a relatively normal labs on admission included a normal CBC, no cold leukocytosis, she had normal basic metabolic profile, creatinine was noted to be a bit elevated at 1.24. Lactic acid was normal. Glucose was normal. And her pro calcitonin was noted to be a bit elevated CT brain on admission showed cerebral atrophy and chronic small vessel ischemia. Chest x-ray done showed patchy infiltrate in the anterior right middle lobe, hence the patient was admitted with the impression of right middle lobe pneumonia. However since admission the patient had an episode of atrial fibrillation with RVR, treated with Cardizem, and seen by cardiology. It was felt to be a paroxysmal atrial fibrillation, new onset, and the recommendation was to place the patient on metoprolol, Cardizem 30 mg twice a day, and she had an echocardiogram which showed good LV function, no evidence of pulmonary hypertension, there was mild to moderate mitral regurgitation. Moderate aortic valve sclerosis. And moderate aortic stenosis. Patient was also placed on Eliquis by cardiology, and heparin was discontinued which was started initially. Presently during my evaluation, the patient had minimal cough, nonproductive, no chest pain, no fever, no chills, no hemoptysis, and no chest pain. After evaluating the patient, I recommended a d-dimer, I also recommended a venous Doppler of the lower extremities. The clinical suspicion for pneumonia is relatively low based on the presentation and based on the clinical history. On 07/15/2019 patient seen in follow-up on selective care unit, she is awake and alert, she is sitting up in the chair, appears to be in no acute distress, her daughter is at the bedside, she states that around 3:00 in the morning patient received a breathing treatment, and was very short of breath, wheezy. Patient seems to have recovered from that episode, clinical exam does reveal bibasilar crackles. Addition patient did have a fever last night, with a temp of 101.0F. Not bringing up any phlegm, she is on 2 L of oxygen with pulse ox is 95%, she is afebrile this morning, she is on azithromycin and ceftriaxone for antibiotic coverage. Blood culture has shown no growth at the 72 hour evangelista. Today's labs have been reviewed, showing white blood cell count of 6.1, hemoglobin of 8.8, d- dimer was 1.19, CTA chest was obtained showing no evidence of pulmonary embolism did show pleural effusions with basilar pulmonary infiltrates and atelectasis that could relate to congestive heart failure. Ultrasound Dopplers of lower extremities were negative for DVTs. On 07/16/2019 patient seen in follow-up on selective care unit. She is awake and alert, in no acute distress, no fever, no cough, no phlegm production, room air pulse ox is 94%. Continues on empiric antibiotics, when the form of Zithromax and ceftriaxone, continues on diuretics, she is in negative fluid balance, feeling better, no acute events overnight, no complaints of shortness of breath, no fever or chills On 07/17/2019 patient seen in follow-up on medical surgical floor. Last night she again went into A. fib with RVR she remains in A. fib currently with a more controlled rate, she is on oral Cardizem 60 mg 3 times daily, oral amiodarone and Eliquis for anticoagulation, lung sounds reveal a few scattered rhonchi, no wheezing, she is on 2 L of oxygen with a pulse ox of 96%, no fever or chills. Today's labs have been reviewed, showing white blood cell, 4.5, hemoglobin of 9.6, serum sodium is 128, potassium is 4.0, chloride is 96, CO2 is 20, B1 is 25 creatinine is 1.53. She remains on a Zithromax and Rocephin for antibiotic coverage. Patient is maintained on oral Lasix Objective - Vital Signs Vital signs: Vital Signs Temp 97.9 F 07/17/19 13:00 Pulse 66 07/17/19 13:00 Resp 18 07/17/19 13:00 BP 91/56 07/17/19 13:00 Pulse Ox 96 07/17/19 13:00 Intake & Output 07/16/19 07/17/19 07/17/19 18:59 06:59 18:59 Intake Total 720 480 400 Output Total 300 600 825 Balance 420 -120 -425 Weight 72.7 kg 72.7 kg Intake: Oral 720 480 400 Output: Urine 300 600 825 Other: Voiding Method Toilet - Exam GENERAL EXAM: Alert, very pleasant, 84-year-old white female, on 2 L of oxygen with a pulse ox of 95%, comfortable in no apparent distress. HEAD: Normocephalic/atraumatic. EYES: Normal reaction of pupils, equal size. Conjunctiva pink, sclera white. NOSE: Clear with pink turbinates. THROAT: No erythema or exudates. NECK: No masses, no JVD, no thyroid enlargement, no adenopathy. CHEST: No chest wall deformity. Symmetrical expansion. LUNGS: Equal air entry with basilar crackles CVS: Regular rate and rhythm, normal S1 and S2, no gallops, positive systolic murmur, no rubs ABDOMEN: Soft, nontender. No hepatosplenomegaly, normal bowel sounds, no guarding or rigidity. EXTREMITIES: No clubbing, no edema, no cyanosis, 2+ pulses and upper and lower extremities. MUSCULOSKELETAL: Muscle strength and tone normal. SPINE: No scoliosis or deformity SKIN: No rashes CENTRAL NERVOUS SYSTEM: Alert and oriented -3. No focal deficits, tone is normal in all 4 extremities. PSYCHIATRIC: Alert and oriented -3. Appropriate affect. Intact judgment and insight. - Labs CBC & Chem 7: 07/17/19 08:00 07/17/19 08:00 Labs: Abnormal Lab Results - Last 24 Hours (Table) 07/17/19 07/17/19 Range/Units 08:00 08:00 RBC 2.94 L (3.80-5.40) m/uL Hgb 9.6 L (11.4-16.0) gm/dL Hct 29.4 L (34.0-46.0) % Lymphocytes # 0.5 L (1.0-4.8) k/uL Sodium 128 L (137-145) mmol/L Chloride 96 L (98-107) mmol/L Carbon Dioxide 20 L (22-30) mmol/L BUN 25 H (7-17) mg/dL Creatinine 1.53 H (0.52-1.04) mg/dL Microbiology - Last 24 Hours (Table) 07/11/19 21:20 Blood Culture - Preliminary Blood No Growth after 120 hours Assessment and Plan Plan: Assessment: #1. Syncopal episode, possibly related to cardiac arrhythmia #2. Abnormal chest x-ray suspicious for community acquired pneumonia in the right middle lobe, CTA chest negative for pulmonary embolism, did show pleural effusions with basilar pulmonary infiltrates, possibility of acute diastolic congestive heart failure is being considered #3. Valvular heart disease, moderate aortic stenosis, [id number] mitral regurgitation, mild tricuspid regurgitation #4. New-onset atrial fibrillation, currently in sinus rhythm, has been started on Eliquis for anticoagulation #5. Hyponatremia, possibly related to acute CHF #6. Degenerative joint disease #7. Benign essential hypertension #8. History of breast cancer #9. Dyslipidemia #10. Acute kidney injury secondary to acute tubular necrosis Plan: Continue current antibiotic coverage, patient has had no fever, no chills, continue oral Lasix, continue monitoring renal function and electrolytes co ntinue oral anticoagulation, in A. fib, rate control medications per cardiology, from pulmonary perspective patient is being treated for possibility of pneumonia. We'll complete the course of antibiotics, will cut back the nebulized bronchodilators and administer them on as-needed basis. I performed a history & physical examination of the patient and discussed their management with my nurse practitioner, Michelle Louise. I reviewed the nurse practitioner's note and agree with the documented findings and plan of care. Lung sounds are positive for basilar rales. The findings and the impression was discussed with the patient. I attest to the documentation by the nurse practitioner. Time with Patient: Less than 30
[2019-07-17] MEDS: DILTIAZEM ORAL 60 MG TAB PO SCH ×2 (17:21→22:20)
[2019-07-17] MEDS: IPRATROPIUM-ALBUTEROL 3 ML NEB INHALATION PRN (17:22)
[2019-07-17] MEDS: APIXABAN 2.5 MG TABLET PO SCH (22:20)
--- NOTE | 2019-07-17 23:05 | P.PN ---
Subjective Progress Note Date: 07/17/19 Pt complains she is feeling worse today, getting short of breath with any exertion making it difficult for her to use the bathroom on her own. She continues to have a negative fluid balance over the past day and creatinine is worsened today to 1.53. Objective - Vital Signs Vital signs: Vital Signs Temp 97.8 F 07/17/19 17:30 Pulse 94 07/17/19 17:33 Resp 20 07/17/19 17:30 BP 101/50 07/17/19 17:30 Pulse Ox 96 07/17/19 17:30 Intake & Output 07/17/19 07/17/19 07/18/19 06:59 18:59 06:59 Intake Total 480 1000 Output Total 600 825 Balance -120 175 Weight 72.7 kg 72.7 kg Intake: Intake, IV Titration 100 Amount cefTRIAXone 1 gm In 100 Sodium Chloride 0.9% 50 ml @ 100 mls/hr IVPB Q24HR [facility] Rx#:[id number] Oral 480 900 Output: Urine 600 825 Other: Voiding Method Toilet Toilet - Exam General: well nourished, well developed, NAD. Vitals reviewed Lungs: normal respiratory effort, no wheezes or rales CV: Irregular, systolic murmur. Peripheral pulses 2+ Abdomen: soft, nondistended, no organomegaly Skin: warm and dry. - Labs CBC & Chem 7: 07/17/19 08:00 07/17/19 08:00 Labs: Abnormal Lab Results - Last 24 Hours (Table) 07/17/19 07/17/19 Range/Units 08:00 08:00 RBC 2.94 L (3.80-5.40) m/uL Hgb 9.6 L (11.4-16.0) gm/dL Hct 29.4 L (34.0-46.0) % Lymphocytes # 0.5 L (1.0-4.8) k/uL Sodium 128 L (137-145) mmol/L Chloride 96 L (98-107) mmol/L Carbon Dioxide 20 L (22-30) mmol/L BUN 25 H (7-17) mg/dL Creatinine 1.53 H (0.52-1.04) mg/dL Microbiology - Last 24 Hours (Table) 07/11/19 21:20 Blood Culture - Preliminary Blood No Growth after 120 hours Assessment and Plan (1) Community acquired pneumonia Current Visit: Yes Status: Acute Code(s): J18.9 - PNEUMONIA, UNSPECIFIED ORGANISM SNOMED Code(s): 476161387 (2) Hyperlipemia Current Visit: No Status: Chronic Code(s): E78.5 - HYPERLIPIDEMIA, U NSPECIFIED SNOMED Code(s): 28828284 (3) Osteoarthritis Current Visit: No Status: Chronic Code(s): M19.90 - UNSPECIFIED OSTEOARTHRITIS, UNSPECIFIED SITE SNOMED Code(s): 485555848 (4) RML pneumonia Current Visit: Yes Status: Acute Code(s): J18.9 - PNEUMONIA, UNSPECIFIED ORGANISM SNOMED Code(s): 915407462 (5) HTN (hypertension) Current Visit: No Status: Chronic Code(s): I10 - ESSENTIAL (PRIMARY) HYPERTENSION SNOMED Code(s): 66964717 Plan: 1. Syncopal event. Suspect cardiogenic. New diagnosis of A fib this admission. Cardiology following, neurology consulted 2. Paroxysmal a fib. Continue with lopressor, eliquis, cardizem, amiodarone per cardiology 3. Acute diastolic CHF. Continue lasix 4. Community acquired pneumonia. Empiric coverage with rocephin and azithromycin . Pulmonary following
[2019-07-18] MEDS: HYDROcodone/APAP 5-325MG 1 EACH TAB PO PRN ×4 (03:47→22:03)
[2019-07-18 07:48] LABS: Calcium 8.7 mg/dL (8.4-10.2); Potassium 4.5 mmol/L (3.5-5.1)
[2019-07-18] MEDS: guaiFENesin 600 MG TABLET.ER PO SCH ×2 (09:01→20:52)
[2019-07-18] MEDS: METOPROLOL TARTRATE 50 MG TAB PO SCH ×2 (09:02→20:52)
[2019-07-18] MEDS: FUROSEMIDE 20 MG TAB PO SCH ×2 (09:02→15:45)
[2019-07-18] MEDS: IPRATROPIUM-ALBUTEROL 3 ML NEB INHALATION PRN (09:04)
[2019-07-18] MEDS: SENNOSIDES-DOCUSATE SODIUM 1 EACH TAB PO SCH (09:05)
[2019-07-18] MEDS: GABAPENTIN 300 MG CAP PO SCH (09:05)
[2019-07-18] MEDS: APIXABAN 2.5 MG TABLET PO SCH ×2 (09:05→20:52)
[2019-07-18] MEDS: LORATADINE 10 MG TAB PO SCH (09:05)
[2019-07-18] MEDS: AZITHROMYCIN 500 MG TAB PO SCH (09:05)
[2019-07-18] MEDS: DILTIAZEM ORAL 60 MG TAB PO SCH ×3 (09:06→20:52)
[2019-07-18] MEDS: AMIODARONE 200 MG TAB PO SCH ×2 (09:06→20:52)
[2019-07-18] MEDS: ANASTROZOLE 1 MG TAB PO SCH (09:06)
[2019-07-18] MEDS: BENZOCAINE/MENTHOL LOZENG 1 EACH LOZENGE MUCOUS MEM PRN (10:31)
--- NOTE | 2019-07-18 11:38 | P.PN ---
Subjective Progress Note Date: 07/18/19 Principal diagnosis: Syncope This is a fragile 84-year-old female patient who initially was admitted to the hospital with syncope. We consulted to see her for further cardiac evaluation. The patient was diagnosed with congestive heart failure. The echocardiogram revealed normal left ventricular systolic function with evidence of moderate aortic stenosis. Also the patient did develop atrial fibrillation which was of new onset to her. She was seen this morning. Overall the shortness of breath is better. Now she is requiring oxygen 24 hours. Pulmonary service is on the case. She denies any symptoms of chest pain or chest discomfort. The creatinine has been stable. Currently she is on Lasix by mouth. The plan for the patient to be discharged home later on today. She is on oral anticoagulation. Objective - Vital Signs Vital signs: Vital Signs Temp 97.5 F L 07/18/19 05:37 Pulse 84 07/18/19 09:18 Resp 18 07/18/19 07:20 BP 99/57 07/18/19 05:37 Pulse Ox 97 07/18/19 09:08 Intake & Output 07/17/19 07/18/19 07/18/19 18:59 06:59 18:59 Intake Total 1000 Output Total 825 Balance 175 Weight 72.7 kg Intake: Intake, IV Titration 100 Amount cefTRIAXone 1 gm In 100 Sodium Chloride 0.9% 50 ml @ 100 mls/hr IVPB Q24HR [facility] Rx#:[id number] Oral 900 Output: Urine 825 Other: Voiding Method Toilet Toilet Toilet # Voids 2 # Bowel Movements 1 - Constitutional General appearance: Present: no acute distress - Respiratory Respiratory: bilateral: diminished - Cardiovascular Rhythm: regular Heart sounds: normal: S1, S2 Abnormal Heart Sounds: Present: systolic murmur - Labs CBC & Chem 7: 07/17/19 08:00 07/18/19 06:20 Labs: Abnormal Lab Results - Last 24 Hours (Table) 07/18/19 Range/Units 06:20 Sodium 128 L (137-145) mmol/L Carbon Dioxide 19 L (22-30) mmol/L BUN 25 H (7-17) mg/dL Creatinine 1.58 H (0.52-1.04) mg/dL Microbiology - Last 24 Hours (Table) 07/17/19 10:20 Gram Stain - Preliminary Sputum 07/11/19 21:20 Blood Culture - Final Blood No Growth after 144 hours Assessment and Plan Assessment: Assessment #1 acute exacerbation of diastolic congestive heart failure #2 paroxysmal atrial fibrillation #3 valvular heart disease was moderate aortic stenosis as well as mild to moderate mitral regurgitation and mild tricuspid regurgitation #4 electrolytes imbalance #5 multiple comorbid conditions Plan #1 continue the current dose of Lasix by mouth #2 from the cardiac vascular standpoint of view, the patient can be discharged home
[2019-07-18] MEDS: AMOXIC-POT CLAV 500-125 MG 1 EACH TAB PO SCH ×2 (13:49→20:52)
--- NOTE | 2019-07-18 16:33 | P.PN ---
Subjective Progress Note Date: 07/18/19 Principal diagnosis: Syncope, right middle lobe infiltrate and possible pneumonia The patient is seen today 07/18/2019 in follow-up on the regular medical floor. She is awake and alert in no acute distress. The plan was for discharge today however she states she is still too dyspnic on minimal exertion. She is maintaining O2 saturations in the 90s on 2 L/m per nasal cannula. She is short of breath ambulating to the bathroom and back with her walker. Sputum culture was positive for Erinn only. Blood cultures reveal no growth. Sodium 128. Bicarb 19. Creatinine 1.58. She is continued on DuoNeb inhalations, Mucinex antibiotics in the form of azithromycin. Rate control with diltiazem. On oral diuretics. No significant orthostatic hypotension. Objective - Vital Signs Vital signs: Vital Signs Temp 97.5 F L 07/18/19 11:55 Pulse 73 07/18/19 11:55 Resp 19 07/18/19 16:08 BP 113/70 07/18/19 11:55 Pulse Ox 94 L 07/18/19 11:55 Intake & Output 07/17/19 07/18/19 07/18/19 18:59 06:59 18:59 Intake Total 1000 500 Output Total 825 500 Balance 175 0 Weight 72.7 kg Intake: Intake, IV Titration 100 Amount cefTRIAXone 1 gm In 100 Sodium Chloride 0.9% 50 ml @ 100 mls/hr IVPB Q24HR [facility] Rx#:[id number] Oral 900 500 Output: Urine 825 500 Other: Voiding Method Toilet Toilet Toilet # Voids 2 3 # Bowel Movements 1 - Exam GENERAL EXAM: Alert, very pleasant, 84-year-old female patient, on 2 L of oxygen with a pulse ox of 94%, comfortable in no apparent distress. HEAD: Normocephalic/atraumatic. EYES: Normal reaction of pupils, equal size. Conjunctiva pink, sclera white. NOSE: Clear with pink turbinates. THROAT: No erythema or exudates. NECK: No masses, no JVD, no thyroid enlargement, no adenopathy. CHEST: No chest wall deformity. Symmetrical expansion. LUNGS: Equal air entry with basilar crackles CVS: Regular rate and rhythm, normal S1 and S2, no gallops, positive systolic murmur, no rubs ABDOMEN: Soft, nontender. No hepatosplenomegaly, normal bowel sounds, no guarding or rigidity. EXTREMITIES: No clubbing, no edema, no cyanosis, 2+ pulses and upper and lower extremities. MUSCULOSKELETAL: Muscle strength and tone normal. SPINE: No scoliosis or deformity SKIN: No rashes CENTRAL NERVOUS SYSTEM: No focal deficits, tone is normal in all 4 extremities. PSYCHIATRIC: Alert and oriented -3. Appropriate affect. Intact judgment and insight. - Labs CBC & Chem 7: 07/17/19 08:00 07/18/19 06:20 Labs: Abnormal Lab Results - Last 24 Hours (Table) 07/18/19 Range/Units 06:20 Sodium 128 L (137-145) mmol/L Carbon Dioxide 19 L (22-30) mmol/L BUN 25 H (7-17) mg/dL Creatinine 1.58 H (0.52-1.04) mg/dL Microbiology - Last 24 Hours (Table) 07/17/19 10:20 Gram Stain - Preliminary Sputum Sputum Culture - Preliminary Erinn albicans 07/11/19 21:20 Blood Culture - Final Blood No Growth after 144 hours Assessment and Plan Assessment: #1. Syncopal episode, possibly related to cardiac arrhythmia. No orthostatic hypotension noted. #2. Abnormal chest x-ray suspicious for community acquired pneumonia in the right middle lobe, CTA chest negative for pulmonary embolism, did show pleural effusions with basilar pulmonary infiltrates, possibility of acute diastolic congestive heart failure is being considered #3. Valvular heart disease, moderate aortic stenosis, [id number] mitral regurgitation, mild tricuspid regurgitation #4. New-onset atrial fibrillation, currently in sinus rhythm, has been started on Eliquis for anticoagulation #5. Hyponatremia, possibly related to acute CHF #6. Degenerative joint disease #7. Benign essential hypertension #8. History of breast cancer #9. Dyslipidemia #10. Acute kidney injury secondary to acute tubular necrosis Plan: The patient was seen and evaluated by Dr. Hart. She is still dyspneic on minimal exertion. We'll continue the current treatment plan. Increase her activity as tolerated. She may require home oxygen. Plan for discharge in the a.m. We'll continue to follow. I, the cosigning physician, performed a [facility] sounds are basilar crackles. Maintaining good O2 saturations in the 90s on 2 L/m per nasal cannula. I discussed the assessment and plan of care with my nurse practitioner, Arely Telles. I attest to the above note as dictated by her.
--- NOTE | 2019-07-18 21:44 | P.PN ---
Subjective Progress Note Date: 07/18/19 She is feeling stable and has remained rate controlled but is very dyspneic with any amount of exertion. Her weight and creatinine are stable. She denies cough or chest pain. Objective - Vital Signs Vital signs: Vital Signs Temp 97.7 F 07/18/19 21:00 Pulse 77 07/18/19 21:00 Resp 22 07/18/19 21:00 BP 114/67 07/18/19 21:00 Pulse Ox 96 07/18/19 21:00 Intake & Output 07/18/19 07/18/19 07/19/19 06:59 18:59 06:59 Intake Total 500 Output Total 500 Balance 0 Intake: Oral 500 Output: Urine 500 Other: Voiding Method Toilet Toilet # Voids 2 3 # Bowel Movements 1 - Exam General: well nourished, well developed, NAD. Vitals reviewed. On 2 L O2 Lungs: normal respiratory effort, no wheezes or rales CV: Irregular, systolic murmur. Peripheral pulses 2+. No edema Abdomen: soft, nondistended, no organomegaly Skin: warm and dry. - Labs CBC & Chem 7: 07/17/19 08:00 07/18/19 06:20 Labs: Abnormal Lab Results - Last 24 Hours (Table) 07/18/19 Range/Units 06:20 Sodium 128 L (137-145) mmol/L Carbon Dioxide 19 L (22-30) mmol/L BUN 25 H (7-17) mg/dL Creatinine 1.58 H (0.52-1.04) mg/dL Microbiology - Last 24 Hours (Table) 07/17/19 10:20 Gram Stain - Preliminary Sputum Sputum Culture - Preliminary Erinn albicans 07/11/19 21:20 Blood Culture - Final Blood No Growth after 144 hours Assessment and Plan (1) Community acquired pneumonia Current Visit: Yes Status: Acute Code(s): J18.9 - PNEUMONIA, UNSPECIFIED ORGANISM SNOMED Code(s): 916070963 (2) Hyperlipemia Current Visit: No Status: Chronic Code(s): E78.5 - HYPERLIPIDEMIA, UNSPECIFIED SNOMED Code(s): 85481666 (3) Osteoarthritis Current Visit: No Status: Chronic Code(s): M19.90 - UNSPECIFIED OSTEOARTHRITIS, UNSPECIFIED SITE SNOMED Code(s): 797721602 (4) RML pneumonia Current Visit: Yes Status: Acute Code(s): J18.9 - PNEUMONIA, UNSPECIFIED ORGANISM SNOMED Code(s): 699094830 (5) HTN (hypertension) Current Visit: No Status: Chronic Code(s): I10 - ESSENTIAL (PRIMARY) HYPERTENSION SNOMED Code(s): 88825242 Plan: 1. Syncopal event. Suspect cardiogenic. New diagnosis of A fib this admission. Cardiology following, EEG ordered 2. Paroxysmal a fib. Now rate controlled. Continue with lopressor, eliquis, cardizem, amiodarone per cardiology 3. Acute diastolic CHF. Continue lasix 4. Community acquired pneumonia. Switch rocephin to augmentin, continue azithromycin. Pulmonary following
[2019-07-19] MEDS: HYDROcodone/APAP 5-325MG 1 EACH TAB PO PRN ×2 (04:13→21:35)
[2019-07-19] MEDS: METOPROLOL TARTRATE 50 MG TAB PO SCH ×2 (08:12→21:37)
[2019-07-19] MEDS: SENNOSIDES-DOCUSATE SODIUM 1 EACH TAB PO SCH (08:12)
[2019-07-19] MEDS: ATORVASTATIN 40 MG TAB PO SCH (08:12)
[2019-07-19] MEDS: FUROSEMIDE 20 MG TAB PO SCH ×2 (08:12→18:07)
[2019-07-19] MEDS: AZITHROMYCIN 500 MG TAB PO SCH (08:12)
[2019-07-19] MEDS: GABAPENTIN 300 MG CAP PO SCH (08:12)
[2019-07-19] MEDS: APIXABAN 2.5 MG TABLET PO SCH ×2 (08:12→21:37)
[2019-07-19] MEDS: guaiFENesin 600 MG TABLET.ER PO SCH ×2 (08:12→21:34)
[2019-07-19] MEDS: LORATADINE 10 MG TAB PO SCH (08:13)
[2019-07-19] MEDS: AMOXIC-POT CLAV 500-125 MG 1 EACH TAB PO SCH ×2 (08:15→21:35)
[2019-07-19] MEDS: AMIODARONE 200 MG TAB PO SCH ×2 (08:17→21:35)
[2019-07-19] MEDS: DILTIAZEM ORAL 60 MG TAB PO SCH (08:17)
[2019-07-19 08:59] LABS: Calcium 9.2 mg/dL (8.4-10.2); Potassium 4.1 mmol/L (3.5-5.1)
--- NOTE | 2019-07-19 10:20 | P.DS ---
Providers Date of admission: 07/11/19 20:55 Expected date of discharge: 07/19/19 Attending physician: Kiran Reece MD Consults: 07/13/19 18:05 Consult Physician Urgent Consulting Provider: Riki Mays Consult Reason/Comments: Afib/Irregular heart beat Do you want consulting provider notified?: Yes 07/14/19 09:37 Consult Physician Routine Consulting Provider: Dirk Chris Consult Reason/Comments: possible COPD Do you want consulting provider notified?: Yes 07/17/19 08:49 Consult Physician Routine Consulting Provider: Heather Casillas Consult Reason/Comments: syncope eval for seizures Do you want consulting provider notified?: Yes Primary care physician: Elsi Reece - Discharge Diagnosis(es) (1) Community acquired pneumonia Current Visit: Yes Status: Acute (2) Hyperlipemia Current Visit: No Status: Chronic (3) Osteoarthritis Current Visit: No Status: Chronic (4) RML pneumonia Current Visit: Yes Status: Acute (5) HTN (hypertension) Current Visit: No Status: Chronic (6) Acute diastolic CHF (congestive heart failure), NYHA class 3 Current Visit: Yes Status: Acute (7) COPD (chronic obstructive pulmonary disease) Current Visit: Yes Status: Acute Hospital Course: Estelita Vogel is an 84 yo F with PMH of OA, HTN, HLD, hx breast cancer who presented to the ED via EMS after a syncopal event at home. Pt states she was at the dinner table when she started to feel warm and lightheaded. Family notes that she became unsteady and was not responsive so daughters laid pt down and called EMS. Family denies any other symptoms. Pt states next remembered paramedics standing over her. Pt denies any chest pain, palpitations, fevers or chills but notes she has experienced a nonproductive cough for the past 2 weeks. In the ED vitals were stable, WBC 5.2, Cr 1.3 from baseline 0.9, CT head negative, CXR with RML pneumonia. Pt was admitted to medicine and seen by Pulmonology. She was started on empiric treatment with rocephin and azithromycin. She then experienced an episode of atrial fibrillation with RVR and was started on metoprolol and seen by cardiology. She underwent echocardiogram which showed normal EF, moderate aortic stenosis. She was started on diltiazem and amiodarone. Pt was also evaluated by Neurology for her syncope and underwent EEG. Pt's rate was controlled and her symptoms did improve. She is discharged in stable condition and will continue daily lasix as well as amiodarone, diltiazem and metoprolol. She will follow up with PCP and Cardiology within 1 week of discharge. Discharge exam: HEENT: on 2 L o2, MMM CV: Irregular, normal rate, systolic murmur. No peripheral edema Lungs: clear throughout Skin: warm and dry Patient Condition at Discharge: Stable Plan - Discharge Summary New Discharge Prescriptions: New Amoxic-Pot Clav 500-125 mg [Augmentin 500-125 mg] 1 each PO BID #3 tab Amiodarone [Cordarone] 400 mg PO BID #60 tab Apixaban [Eliquis] 2.5 mg PO BID #60 tablet Metoprolol Tartrate [Lopressor] 50 mg PO BID #60 tab Diltiazem HCl [Diltiazem 24Hr ER] 180 mg PO DAILY #30 cap.sa.24h Albuterol Sulfate [Albuterol Sulfate Hfa] 1 puff PO Q4-6H #1 inhaler Furosemide [Lasix] 20 mg PO DAILY #30 tab Continue Loratadine [Claritin] 10 mg PO DAILY Atorvastatin [Lipitor] 40 mg PO MOTH Anastrozole [Arimidex] 1 mg PO DAILY Turmeric(Unknown Dose) 1 tab PO DAILY Co Q-10(Unknown Dose) 1 tab PO DAILY Black Rousseau(Unknown Dose) 1 tab PO BID Cinnamon(Unknown Dose) 1 tab PO BID Calcium/Vitamin D3(Unknown Dose) 1 tab PO BID Vit C/E/Zn/Coppr/Lutein/Zeaxan [Preservision Areds 2 Softgel] 1 cap PO BID Colchicine 0.6 mg PO DAILY PRN PRN Reason: GOUT ATTACK ONLY Allopurinol [Zyloprim] 150 mg PO DAILY Vitamin B Complex 1 cap PO DAILY Famotidine [Pepcid AC] 10 mg PO DAILY PRN PRN Reason: Heartburn Echinacea(Unknown Dose) 1 tab PO DAILY Discontinued Furosemide [Lasix] 20 mg PO Q48H Discharge Medication List Loratadine [Claritin] 10 mg PO DAILY 11/15/13 [History] Atorvastatin [Lipitor] 40 mg PO MOTH 11/18/16 [History] Anastrozole [Arimidex] 1 mg PO DAILY 11/21/18 [History] Allopurinol [Zyloprim] 150 mg PO DAILY 07/11/19 [History] Black Rousseau(Unknown Dose) 1 tab PO BID 07/11/19 [History] Calcium/Vitamin D3(Unknown Dose) 1 tab PO BID 07/11/19 [History] Cinnamon(Unknown Dose) 1 tab PO BID 07/11/19 [History] Co Q-10(Unknown Dose) 1 tab PO DAILY 07/11/19 [History] Colchicine 0.6 mg PO DAILY PRN 07/11/19 [History] Echinacea(Unknown Dose) 1 tab PO DAILY 07/11/19 [History] Famotidine [Pepcid AC] 10 mg PO DAILY PRN 07/11/19 [History] Turmeric(Unknown Dose) 1 tab PO DAILY 07/11/19 [History] Vit C/E/Zn/Coppr/Lutein/Zeaxan [Preservision Areds 2 Softgel] 1 cap PO BID 07/11/19 [History] Vitamin B Complex 1 cap PO DAILY 07/11/19 [History] Amiodarone [Cordarone] 400 mg PO BID #60 tab 07/18/19 [Rx] Amoxic-Pot Clav 500-125 mg [Augmentin 500-125 mg] 1 each PO BID #3 tab 07/18/19 [Rx] Apixaban [Eliquis] 2.5 mg PO BID #60 tablet 07/18/19 [Rx] Diltiazem HCl [Diltiazem 24Hr ER] 180 mg PO DAILY #30 cap.sa.24h 07/18/19 [Rx] Metoprolol Tartrate [Lopressor] 50 mg PO BID #60 tab 07/18/19 [Rx] Albuterol Sulfate [Albuterol Sulfate Hfa] 1 puff PO Q4-6H #1 inhaler 07/19/19 [Rx] Furosemide [Lasix] 20 mg PO DAILY #30 tab 07/19/19 [Rx] Follow up Appointment(s)/Referral(s): Ashwini Gross MD [STAFF PHYSICIAN] - 1 Week Elsi Reece DO [Primary Care Provider] - 1-2 days Activity/Diet/Wound Care/Special Instructions: Eliquis filled at [facility] with free coupon. Discharge Disposition: HOME WITH HOME HEALTH SERVICES
[2019-07-19 10:33] LABS: Glucose,Whole Blood 110 mg/dL (75-99)
[2019-07-19] MEDS ORDERED: ONDANSETRON 4 MG/2 ML VIAL IVP PRN (11:12)
[2019-07-19 12:00] LABS: Creatine Kinase 87 U/L (30-135)
[2019-07-19] MEDS: SODIUM CHLORIDE 0.9% 500 ML IV SCH ×3 (12:00→15:41)
[2019-07-19 12:13] LABS: Creatine Kinase MB 4.1 ng/mL (0.0-2.4); Troponin I <0.012 ng/mL (0.000-0.034)
--- NOTE | 2019-07-19 13:00 | XR ---
EXAMINATION TYPE: XR chest 1V DATE OF EXAM: 07/19/2019 COMPARISON: 07/15/2019 HISTORY: Shortness of breath TECHNIQUE: Single frontal view of the chest is obtained. FINDINGS: Hyperinflation. Bilateral consolidation and pleural effusion. No pneumothorax. Diffuse ost eopenia and arthropathy of the shoulders. Atherosclerotic change aorta. IMPRESSION: 1. Bilateral infiltrate and pleural effusion. Correlate for pneumonia otherwise consider mild CHF.
[2019-07-19] MEDS: ANASTROZOLE 1 MG TAB PO SCH (13:28)
--- NOTE | 2019-07-19 14:57 | P.PN ---
Subjective Progress Note Date: 07/19/19 Principal diagnosis: Syncopal episodes, right middle lobe infiltrate and possible pneumonia This is an 84-year-old female with history of breast cancer, hypertension, osteoarthritis, macular degeneration, degenerative joint disease, remote smoking history, quit smoking over 28 years ago, patient had a [id number] smoking history. She presented to the emergency room on 07/11/2019 with chief complaint of feeling warm was sitting at a table and playing a game, patient had a wi tnessed syncopal episode. Patient was out for 5-6 minutes, there was no evidence of any seizure activity, patient felt warm, lightheaded, and she passed out for a few minutes. Patient never had similar episodes in the past, she had no shortness of breath, no cough, no wheezing, no fever no chills no hemoptysis. Patient had a relatively normal labs on admission included a normal CBC, no cold leukocytosis, she had normal basic metabolic profile, creatinine was noted to be a bit elevated at 1.24. Lactic acid was normal. Glucose was normal. And her pro calcitonin was noted to be a bit elevated CT brain on admission showed cerebral atrophy and chronic small vessel ischemia. Chest x-ray done showed patchy infiltrate in the anterior right middle lobe, hence the patient was admitted with the impression of right middle lobe pneumonia. However since admission the patient had an episode of atrial fibrillation with RVR, treated with Cardizem, and seen by cardiology. It was felt to be a paroxysmal atrial fibrillation, new onset, and the recommendation was to place the patient on metoprolol, Cardizem 30 mg twice a day, and she had an echocardiogram which showed good LV function, no evidence of pulmonary hypertension, there was mild to moderate mitral regurgitation. Moderate aortic valve sclerosis. And moderate aortic stenosis. Patient was also placed on Eliquis by cardiology, and heparin was discontinued which was started initially. Presently during my evaluation, the patient had minimal cough, nonproductive, no chest pain, no fever, no chills, no hemoptysis, and no chest pain. After evaluating the patient, I recommended a d-dimer, I also recommended a venous Doppler of the lower extremities. The clinical suspicion for pneumonia is relatively low based on the presentation and based on the clinical history. On 07/15/2019 patient seen in follow-up on selective care unit, she is awake and alert, she is sitting up in the chair, appears to be in no acute distress, her daughter is at the bedside, she states that around 3:00 in the morning patient received a breathing treatment, and was very short of breath, wheezy. Patient seems to have recovered from that episode, clinical exam does reveal bibasilar crackles. Addition patient did have a fever last night, with a temp of 101.0F. Not bringing up any phlegm, she is on 2 L of oxygen with pulse ox is 95%, she is afebrile this morning, she is on azithromycin and ceftriaxone for antibiotic coverage. Blood culture has shown no growth at the 72 hour evangelista. Today's labs have been reviewed, showing white blood cell count of 6.1, hemoglobin of 8.8, d- dimer was 1.19, CTA chest was obtained showing no evidence of pulmonary embolism did show pleural effusions with basilar pulmonary infiltrates and atelectasis that could relate to congestive heart failure. Ultrasound Dopplers of lower extremities were negative for DVTs. On 07/16/2019 patient seen in follow-up on selective care unit. She is awake and alert, in no acute distress, no fever, no cough, no phlegm production, room air pulse ox is 94%. Continues on empiric antibiotics, when the form of Zithromax and ceftriaxone, continues on diuretics, she is in negative fluid balance, feeling better, no acute events overnight, no complaints of shortness of breath, no fever or chills On 07/17/2019 patient seen in follow-up on medical surgical floor. Last night she again went into A. fib with RVR she remains in A. fib currently with a more controlled rate, she is on oral Cardizem 60 mg 3 times daily, oral amiodarone and Eliquis for anticoagulation, lung sounds reveal a few scattered rhonchi, no wheezing, she is on 2 L of oxygen with a pulse ox of 96%, no fever or chills. Today's labs have been reviewed, showing white blood cell, 4.5, hemoglobin of 9.6, serum sodium is 128, potassium is 4.0, chloride is 96, CO2 is 20, B1 is 25 creatinine is 1.53. She remains on a Zithromax and Rocephin for antibiotic coverage. Patient is maintained on oral Lasix. On 07/19/2019 patient is seen in follow-up on medical surgical floor. Patient is feeling nauseous today. She is dyspneic with exertion, but no acute distress, today she has developped some hypotension. Blood pressure 79/50, patient is currently in sinus rhythm, and the radius 54-62 BPM, short no fever or chills, he can cough or congestion, today's chest x-ray has been reviewed showing bilateral infiltrates and pleural effusions, likely related to mild CHF. Antibiotic coverage currently includes Zithromax and is been started on oral Augmentin. Today's labs have been reviewed, no CBC was done, serum sodium was 129, slightly improved from yesterday, potassium is 4.1, chloride is 96, CO2 is 22, BUN is 27, and creatinine is 1.7, patient has been transitioned to oral Lasix, no complaints of chest pain, a set of cardiac enzymes and troponins was obtained, showing troponin less than 0.012, total CK was 87, CK-MB was 4.1, CK- MB index was 4.7. Patient is being discharged home today Objective - Vital Signs Vital signs: Vital Signs Temp 97.6 F 07/19/19 05:00 Pulse 62 07/19/19 12:12 Resp 17 07/19/19 12:12 BP 79/50 07/19/19 12:12 Pulse Ox 94 L 07/19/19 12:12 Intake & Output 07/18/19 07/19/19 07/19/19 18:59 06:59 18:59 Intake Total 544 774 6111 Output Total 500 200 Balance 0 980 950 Intake: Intake, IV Titration 500 Amount Sodium Chloride 0.9% 500 500 ml @ 200 mls/hr IV . Q2H30M [facility] Rx#:[id number] Oral 500 980 650 Output: Urine 500 200 Other: Voiding Method Toilet Toilet Toilet # Voids 3 1 - Exam GENERAL EXAM: Alert, very pleasant, 84-year-old white female, on 2 L of oxygen on room air, nauseous on today's exam but no no apparent distress. HEAD: Normocephalic/atraumatic. EYES: Normal reaction of pupils, equal size. Conjunctiva pink, sclera white. NOSE: Clear with pink turbinates. THROAT: No erythema or exudates. NECK: No masses, no JVD, no thyroid enlargement, no adenopathy. CHEST: No chest wall deformity. Symmetrical expansion. LUNGS: Equal air entry with basilar crackles CVS: Regular rate and rhythm, normal S1 and S2, no gallops, positive systolic murmur, no rubs ABDOMEN: Soft, nontender. No hepatosplenomegaly, normal bowel sounds, no guarding or rigidity. EXTREMITIES: No clubbing, no edema, no cyanosis, 2+ pulses and upper and lower extremities. MUSCULOSKELETAL: Muscle strength and tone normal. SPINE: No scoliosis or deformity SKIN: No rashes CENTRAL NERVOUS SYSTEM: Alert and oriented -3. No focal deficits, tone is normal in all 4 extremities. PSYCHIATRIC: Alert and oriented -3. Appropriate affect. Intact judgment and insight. - Labs CBC & Chem 7: 07/17/19 08:00 07/19/19 08:27 Labs: Abnormal Lab Results - Last 24 Hours (Table) 07/19/19 07/19/19 07/19/19 Range/Units 08:27 10:30 11:18 Sodium 129 L (137-145) mmol/L Chloride 96 L (98-107) mmol/L BUN 27 H (7-17) mg/dL Creatinine 1.77 H (0.52-1.04) mg/dL POC Glucose (mg/dL) 110 H (75-99) mg/dL CK-MB (CK-2) 4.1 H (0.0-2.4) ng/mL Microbiology - Last 24 Hours (Table) 07/17/19 10:20 Gram Stain - Final Sputum Sputum Culture - Final Erinn albicans Assessment and Plan Plan: Assessment: #1. Syncopal episode, possibly related to cardiac arrhythmia #2. Abnormal chest x-ray suspicious for community acquired pneumonia in the right middle lobe, CTA chest negative for pulmonary embolism, did show pleural effusions with basilar pulmonary infiltrates, possibility of acute diastolic congestive heart failure is being considered #3. Valvular heart disease, moderate aortic stenosis, [id number] mitral regurgitation, mild tricuspid regurgitation #4. New-onset atrial fibrillation, currently in sinus rhythm, has been started on Eliquis for anticoagulation #5. Hyponatremia, possibly related to acute CHF #6. Degenerative joint disease #7. Benign essential hypertension #8. History of breast cancer #9. Dyslipidemia #10. Acute kidney injury secondary to acute tubular necrosis Plan: Patient is being discharged home today, from pulmonary perspective she is stable, she is on room air, 's been afebrile, she's been treated with empiric antibiotics, sputum blood cultures have been negative. I performed a history & physical examination of the patient and discussed their management with my nurse practitioner, Michelle Louise. I reviewed the nurse practitioner's note and agree with the documented findings and plan of care. Lung sounds are positive for basilar rales. The findings and the impression was discussed with the patient. I attest to the documentation by the nurse practitioner. Time with Patient: Less than 30
[2019-07-20] MEDS: HYDROcodone/APAP 5-325MG 1 EACH TAB PO PRN ×3 (04:30→16:37)
--- NOTE | 2019-07-20 05:49 | EEG ---
ELECTROENCEPHALOGRAM REPORT PROCEDURE DATE: 07/19/2019 ELECTROENCEPHALOGRAM (EEG) REPORT: TECHNIQUE: A routine 18 channel EEG was performed with video using the 10/20 international electrode placement system. HISTORY: Syncope, pneumonia. CURRENT MEDICATIONS: Metoprolol, Claritin, [place], Neurontin, Lasix, Senna. STUDY DURATION: 23 minutes. FINDINGS: Please note that portions of the recording were limited in interpretation by the presence of muscle artifact. Please also note that an excess of beta frequency activity was noted. This is not epileptiform in nature and may in part be due to medication effect. BACKGROUND: The background activity consisted of 7 to 8 Hz rhythmic waveforms symmetrically distributed through posterior quadrants. ACTIVATION: Hyperventilation: Not performed. Photic stimulation: Symmetric driving seen. Sleep: Drowsy. ABNORMALITIES: 1. Intermittent diffuse 5 to 7 Hz polymorphic theta range slowing was seen. 2. Occasional frontally predominant delta range slowing was seen. IMPRESSION: Abnormal EEG. The intermittent diffuse theta range slowing mentioned above as well as the frontally predominant delta range slowing mentioned above is not epileptiform in nature. In combination with the slow background, these findings indicate mild diffuse cerebral dysfunction as may be seen in a toxometabolic encephalopathy. No seizures were recorded. No epileptiform activity was present. MMODL / IJN: [id number] /
[2019-07-20] MEDS ORDERED: FUROSEMIDE 20 MG TAB PO SCH (09:00)
[2019-07-20] MEDS: LORATADINE 10 MG TAB PO SCH (10:22)
[2019-07-20] MEDS: METOPROLOL TARTRATE 50 MG TAB PO SCH (10:22)
[2019-07-20] MEDS: SENNOSIDES-DOCUSATE SODIUM 1 EACH TAB PO SCH (10:22)
[2019-07-20] MEDS: guaiFENesin 600 MG TABLET.ER PO SCH (10:23)
[2019-07-20] MEDS: GABAPENTIN 300 MG CAP PO SCH (10:23)
[2019-07-20] MEDS: AZITHROMYCIN 500 MG TAB PO SCH (10:23)
[2019-07-20] MEDS: APIXABAN 2.5 MG TABLET PO SCH (10:23)
[2019-07-20] MEDS: ANASTROZOLE 1 MG TAB PO SCH (10:24)
[2019-07-20] MEDS: AMOXIC-POT CLAV 500-125 MG 1 EACH TAB PO SCH (10:24)
[2019-07-20] MEDS: AMIODARONE 200 MG TAB PO SCH (10:24)
[2019-07-20 11:20] VITALS: BP 109/73; PULSE 88; RESP 17; TEMP 98.1
--- NOTE | 2019-07-20 11:28 | P.CNNES ---
History of Present Illness Consult date: 07/18/19 Reason for Consult: Syncope, new-onset a.fib History of Present Illness: HISTORY OF PRESENT ILLNESS: Thank you for allowing me to evaluate Ms. Estelita Vogel. Ms. Vogel is an 84 year-old woman with PMHx of HLD, HTN, macular degeneration, heart murmur, breast cancer, presenting with a syncopal episode. Family is at bedside for corroborating information. Patient was at her daughter's house playing cards with her when she suddenly felt a pace of sweating and feeling hot after which patient passed out. Daughter states that patient had some abnormal movement of her R arm during the episode and also had urinary incontinence. Patient lost consciousness for about 3-4 minutes and when she woke up, she was able to recognize her daughter and did not seem confused. Denies any recent sickness, fever, nausea, vomiting, headache, double/blurry vision, weakness, numbness or tingling. No recent travel. When patient arrived in ED, patient was found to be in a.fib with RVR. PAST MEDICAL HISTORY: HLD, HTN, macular degeneration, heart murmur, breast cancer PAST SURGICAL HISTORY: Breast biopsy, R and L hip replacement, b/l cataracts HOME MEDICATIONS: Furosemide, loratadine, MVT, lipitor, anastrozole, gabapentin, amlodipine ALLERGIES: NKDA SOCIAL HISTORY: Former smoker. Occasional EtOH drinker FAMILY HISTORY: Mother with cancer. Father with OR/stroke REVIEW OF SYSTEMS: The 14 systems are reviewed and no additional points are identified compared to the review of systems documented history and physical PHYSICAL EXAMINATION: VITAL SIGNS: T 97.5 HR 60 RR 18 BP 99/57 O2 sat 94% on 2L NC GEN.: NAD, pleasant and cooperative HEENT: NCAT, sclera without icterus NECK: Supple SKIN AND EXTREMITIES: Warm to touch, some ankle edema NEURO: MENTAL STATUS: Patient alert and oriented to self, place, time. Able to name t he current president. Speech fluent, able to name and repeat, following all commands readily. No right and left disorientation, extinction to double simultaneous stimulation, finger agnosia, neglect. CRANIAL NERVES II THROUGH XII: II: Pupils are equal and reactive to light symmetrically. No afferent pupillary defect. Visual hong are intact. III, IV, : No ptosis. Extraocular movements full. No nystagmus. V: Facial sensation intact from V1-3. VII. No clear facial asymmetry. VIII: Hearing intact to finger rub bilaterally. IX, X: Symmetric palate elevation. XI: Shoulder shrug intact. XII: Tongue midline without fasciculation or atrophy. MOTOR: Normal bulk/tone. No pronator drift or tremor. Strength is 5/5 throughout all 4 extremities. SENSORY: Intact to light touch in all 4 extremities. Romberg is negative. REFLEXES: 2+ throughout. Toes are downgoing. COORDINATION: Finger to nose intact. No dysmetria. GAIT: Narrow-based and stable using a walker. DIAGNOSTIC TESTING: IMAGING: CT Head w/o contrast 07/11/19: cerebral atrophy and chronic small vessel ischemia. No acute intracranial abnormality. TTE 07/14/19: SR. EF 60-65%. RV, LV, RA and LA sizes are normal. interatrial and interventricular septum intact. ASSESSMENT: 84 year-old woman with PMHx of HLD, HTN, macular degeneration, heart murmur, breast cancer, presenting with a syncopal episode. Likely cardiac in etiology. Patient started on Eliquis for stroke prevention with newly diagnosed a.fib. RECOMMENDATIONS: 1. Routine EEG 2. No AEDs at this time. Past Medical History Past Medical History: Cancer, Eye Disorder, Hyperlipidemia, Hypertension, Osteoarthritis (OA) Additional Past Medical History / Comment(s): Macular degeneration, heart murmer, hx past kidney problems due to motrin use, breast cancer History of Any Multi-Drug Resistant Organisms: None Reported Past Surgical History: Breast Surgery, Joint Replacement Additional Past Surgical History / Comment(s): rt hip replacement, lt hip replacement, breast biopsy, kirit cataracts, Past Anesthesia/Blood Transfusion Reactions: No Reported Reaction Past Psychological History: No Psychological Hx Reported Smoking Status: Former smoker Past Alcohol Use History: Occasional Additional Past Alcohol Use History / Comment(s): quit smoking 10 yrs ago, smoked for about 30 yrs, <1PPD Past Drug Use History: None Reported - Past Family History Mother Family Medical History: Cancer Father Family Medical History: CVA/TIA, Myocardial Infarction (OR) Medications and Allergies Home Medications Medication Instructions Recorded Confirmed Type Loratadine [Claritin] 10 mg PO DAILY 11/15/13 07/11/19 History Atorvastatin [Lipitor] 40 mg PO MOTH 11/18/16 07/11/19 History Anastrozole [Arimidex] 1 mg PO DAILY 11/21/18 07/11/19 History Allopurinol [Zyloprim] 150 mg PO DAILY 07/11/19 07/11/19 History Black Rousseau(Unknown Dose) 1 tab PO BID 07/11/19 07/11/19 History Calcium/Vitamin D3(Unknown Dose) 1 tab PO BID 07/11/19 07/11/19 History Cinnamon(Unknown Dose) 1 tab PO BID 07/11/19 07/11/19 History Co Q-10(Unknown Dose) 1 tab PO DAILY 07/11/19 07/11/19 History Colchicine 0.6 mg PO DAILY PRN 07/11/19 07/11/19 History Echinacea(Unknown Dose) 1 tab PO DAILY 07/11/19 07/11/19 History Famotidine [Pepcid AC] 10 mg PO DAILY PRN 07/11/19 07/11/19 History Turmeric(Unknown Dose) 1 tab PO DAILY 07/11/19 07/11/19 History Vit C/E/Zn/Coppr/Lutein/Zeaxan 1 cap PO BID 07/11/19 07/11/19 History [Preservision Areds 2 Softgel] Vitamin B Complex 1 cap PO DAILY 07/11/19 07/11/19 History Amoxic-Pot Clav 500-125 mg 1 each PO BID #3 tab 07/18/19 Rx [Augmentin 500-125 mg] Apixaban [Eliquis] 2.5 mg PO BID #60 tablet 07/18/19 Rx Metoprolol Tartrate [Lopressor] 50 mg PO BID #60 tab 07/18/19 Rx Albuterol Sulfate [Albuterol 1 puff PO Q4-6H #1 inhaler 07/19/19 Rx Sulfate Hfa] Furosemide [Lasix] 20 mg PO DAILY #30 tab 07/19/19 Rx Amiodarone [Cordarone] 400 mg PO BID #60 tab 07/20/19 Rx Allergies Allergy/AdvReac Type Severity Reaction Status Date / Time No Known Allergies Allergy Verified 07/11/19 21:59 Physical Examination - Vital Signs Vital Signs: Vital Signs Temp Pulse Pulse Pulse Pulse Pulse Resp 07/18/19 09:18 84 07/18/19 09:08 80 07/18/19 05:37 97.5 F L 60 18 07/18/19 05:00 74 75 68 07/17/19 21:00 97.7 F 75 07/17/19 17:33 94 07/17/19 17:30 97.8 F 79 20 07/17/19 17:22 84 07/17/19 15:55 18 07/17/19 13:00 97.9 F 100 104 H 66 18 BP BP BP BP Pulse Ox 07/18/19 09:18 07/18/19 09:08 97 07/18/19 05:37 99/57 94 L 07/18/19 05:00 95/58 100/65 99/57 07/17/19 21:00 110/67 07/17/19 17:33 07/17/19 17:30 101/50 96 07/17/19 17:22 07/17/19 15:55 07/17/19 13:00 86/57 87/56 91/56 96 Intake and Output 07/17/19 07/18/19 07/18/19 22:59 06:59 14:59 Other: Voiding Method Toilet Toilet # Voids 2 2 # Bowel Movements 1 Results - Laboratory Findings CBC and BMP: 07/17/19 08:00 07/19/19 08:27 Abnormal Lab Findings: Abnormal Labs 07/11/19 07/11/19 07/12/19 19:26 19:26 08:18 RBC 3.56 L 3.21 L Hgb 10.9 L Hct 33.7 L MCV 105.1 H D MCH Lymphocytes # 0.4 L 0.4 L APTT D-Dimer Sodium 135 L Chloride Carbon Dioxide 19 L BUN 21 H Creatinine 1.24 H Glucose 124 H Calcium Procalcitonin Urine Protein 07/12/19 07/12/19 07/13/19 08:18 08:18 20:35 RBC 3.08 L Hgb 10.5 L Hct 30.9 L MCV 100.6 H MCH Lymphocytes # 0.4 L APTT D-Dimer Sodium Chloride Carbon Dioxide BUN Creatinine 1.12 H Glucose Calcium Procalcitonin 0.28 H Urine Protein 07/14/19 07/14/19 07/14/19 01:48 05:49 15:57 RBC 2.71 L Hgb 9.2 L Hct 28.3 L MCV 104.2 H MCH Lymphocytes # 0.5 L APTT 153.3 H* D-Dimer 1.19 H Sodium Chloride Carbon Dioxide BUN Creatinine Glucose Calcium Procalcitonin Urine Protein 07/15/19 07/15/19 07/15/19 06:19 06:19 06:19 RBC 2.65 L Hgb 8.8 L Hct 26.6 L MCV 100.4 H MCH Lymphocytes # 0.5 L APTT D-Dimer Sodium 128 L Chloride Carbon Dioxide 21 L BUN 22 H Creatinine 1.38 H Glucose 101 H Calcium 8.3 L Procalcitonin 0.42 H Urine Protein 07/15/19 07/16/19 07/16/19 13:41 05:45 05:45 RBC 2.74 L Hgb 9.6 L Hct 27.6 L MCV 101.0 H MCH 35.1 H Lymphocytes # 0.4 L APTT D-Dimer Sodium 128 L Chloride 97 L Carbon Dioxide 19 L BUN 23 H Creatinine 1.45 H Glucose Calcium Procalcitonin Urine Protein Trace H 07/17/19 07/17/19 07/18/19 08:00 08:00 06:20 RBC 2.94 L Hgb 9.6 L Hct 29.4 L MCV MCH Lymphocytes # 0.5 L APTT D-Dimer Sodium 128 L 128 L Chloride 96 L Carbon Dioxide 20 L 19 L BUN 25 H 25 H Creatinine 1.53 H 1.58 H Glucose Calcium Procalcitonin Urine Protein
== END 2019-07-20 19:40 | disposition home health service (06) | DRG 193 ==
LOC: EC 19:18 → SUPCPDRO 19:18 → 5NMEDONC 20:55 → 3SCARD 07-13 20:27 → 5NMEDONC 07-16 17:55
PROVIDERS: ADMIT Family Medicine; ATTEND Family Medicine
DX: J18.9 Pneumonia, unspecified organism (principal); I50.33 Acute on chronic diastolic (congestive) heart failure; N17.0 Acute kidney failure with tubular necrosis; J44.0 Chronic obstructive pulmonary disease with (acute) lower respiratory infection; E87.1 Hypo-osmolality and hyponatremia; J98.11 Atelectasis; I48.0 Paroxysmal atrial fibrillation; E78.5 Hyperlipidemia, unspecified; I08.0 Rheumatic disorders of both mitral and aortic valves; I11.0 Hypertensive heart disease with heart failure; M19.90 Unspecified osteoarthritis, unspecified site; R32 Unspecified urinary incontinence; Z79.01 Long term (current) use of anticoagulants; Z79.811 Long term (current) use of aromatase inhibitors; Z79.899 Other long term (current) drug therapy; Z80.9 Family history of malignant neoplasm, unspecified; Z82.3 Family history of stroke; Z82.49 Family history of ischemic heart disease and other diseases of the circulatory system; Z85.3 Personal history of malignant neoplasm of breast; Z87.891 Personal history of nicotine dependence; Z96.643 Presence of artificial hip joint, bilateral; E86.0 Dehydration; Z98.42 Cataract extraction status, left eye; Z98.41 Cataract extraction status, right eye; I95.9 Hypotension, unspecified; H35.30 Unspecified macular degeneration
CPT/HCPCS: 36415; 70450; 71045; 71046; 71275; 80048; 80053; 81003; 82550; 82553; 83605; 83735; 83880; 84145; 84484; 85025; 85379; 85610; 85730; 87040; 87070; 87205; 87502; 90732; 93005; 93306; 93970; 94640; 94760; 95816; 96360; 96361; 99285

== ENCOUNTER → 2020-04-29 | Outpatient (CLI) | payer MEDICARE, BC ==
--- NOTE | 2020-04-29 09:46 | MM ---
Reason for exam: additional evaluation requested from prior study. Last mammogram was performed 11 months ago. History: Patient is postmenopausal and has history of breast cancer at age 81. Family history of breast cancer in mother at age 70. US discontinued breast bx RT of the right breast, November 22, 2018. Mastectomy of the left breast, November 22, 2016. Malignant US biopsy breast VAD LT of the left breast, November 01, 2016. Physical Findings: Nurse did not find any significant physical abnormalities on exam. MG 3D Diag Mammo W/Cad RT CC and MLO view(s) were taken of the right breast. Prior study comparison: May 28, 2019, right breast MG 3d diag mammo w/cad RT. October 26, 2018, right breast MG 3d diag mammo w/cad RT. The breast tissue is heterogeneously dense. This may lower the sensitivity of mammography. Stable benign calcifications. There is no discrete abnormality including area of concern. No significant new findings when compared with previous films. These results were verbally communicated with the patient and result sheet given to the patient on 04/29/20. ASSESSMENT: Benign, BI-RAD 2 RECOMMENDATION: Follow-up diagnostic mammogram of the right breast in 1 year.
== END | disposition home or self-care (01) ==
LOC: RADMAMWWP 08:24
PROVIDERS: ATTEND Surgery
DX: R92.8 Other abnormal and inconclusive findings on diagnostic imaging of breast (principal)
CPT/HCPCS: 77065; G0279; 77061